=== PATIENT | male | born 1960 | race Caucasian/White ===

== ENCOUNTER 2016-11-28 16:25 | Emergency (ER) | payer SELFPAY ==
[~2016-11-28 16:25] MED LIST: PROAIR HFA8.5 GM INH; TRAM-29 PO; VALA10005 PO
[2016-11-28 16:35] VITALS: BP 98/63
--- NOTE | 2016-11-28 17:06 | PHYS DOC ---
Past Medical History Past Medical History: Asthma, COPD Past Surgical History: Other Additional Past Surgical Histo: hernia abd Alcohol Use: Heavy Drug Use: None Adult General Chief Complaint Chief Complaint: Congestion HPI HPI Patient is a 56 year old male with history of COPD, asthma, smoking, who presents today with cough and congestion for the last 2 days. Patient states he has no PCP and has no inhaler. Patient denies any fever. Review of Systems Review of Systems Constitutional: See history of present illness Eyes: Denies change in visual acuity, redness, or eye pain [] HENT: nasal congestion Respiratory: cough Cardiovascular: No additional information not addressed in HPI [] GI: Denies abdominal pain, nausea, vomiting, bloody stools or diarrhea [] : Denies dysuria or hematuria [] Musculoskeletal: Denies back pain or joint pain [] Integument: Denies rash or skin lesions [] Neurologic: Denies headache, focal weakness or sensory changes [] Endocrine: Denies polyuria or polydipsia [] Allergies Allergies Allergies Coded Allergies Type Severity Reaction Last Updated Verified No Known Drug Allergies 05/13/16 No Physical Exam Physical Exam Constitutional: Well developed, well nourished, no acute distress, non-toxic appearance. [] HENT: Normocephalic, atraumatic, bilateral external ears normal, oropharynx moist, no oral exudates, patient sounds congested nasally Eyes: PERRLA, EOMI, conjunctiva normal, no discharge. [] Neck: Normal range of motion, no tenderness, supple, no stridor. [] Cardiovascular:Heart rate regular rhythm, no murmur [] Lungs & Thorax: Bilateral breath sounds clear to auscultation [] Abdomen: Bowel sounds normal, soft, no tenderness, no masses, no pulsatile masses. [] Skin: Warm, dry, no erythema, no rash. [] Back: No tenderness, no CVA tenderness. [] Extremities: No tenderness, no cyanosis, no clubbing, ROM intact, no edema. [] Neurologic: Alert and oriented X 3, normal motor function, normal sensory function, no focal deficits noted. [] Psychologic: Affect normal, judgement normal, mood normal. [] Current Patient Data Vital Signs Vital Signs Date Time Temp Pulse Resp B/P Pulse Ox O2 Delivery O2 Flow Rate FiO2 11/28/16 16:35 98.7 88 18 100 Room Air 98.7 EKG EKG [] Radiology/Procedures Radiology/Procedures [] Course & Med Decision Making Course & Med Decision Making Pertinent Labs and Imaging studies reviewed. (See chart for details) Patient is in the ED with cough and congestion for 2 days. He has history of asthma and COPD and has no PCP or inhalers. His lungs are clear in the ED. He sounded congested nasally. He is a smoker he was advised to consider smoking cessation. Chest x-ray interpreted by Dr. Kennedy is negative for any acute findings. Patient has no follow-up. He has acute bronchitis, upper respiratory infection, with no follow-up i went ahead and wrote him a prescription for Z-Gerry, albuterol inhaler, Tessalon Perles, prednisone for 5 days. Provided him a clinic list for follow-up. Instructed to come back to the ED if symptoms worsen. Dragon Disclaimer Dragon Disclaimer This electronic medical record was generated, in whole or in part, using a voice recognition dictation system. Departure Departure Impression: Primary Impression: Upper respiratory infection Additional Impressions: Bronchitis, acute Smoking addiction Disposition: HOME, SELF-CARE Condition: STABLE Referrals: NO PCP (PCP) Follow-up with a doctor from the list provided Patient Instructions: Acute Bronchitis, Smoking Cessation, Upper Respiratory Infection, Adult Additional Instructions: You were for bronchitis, upper respiratory infection. Consider smoking cessation. Use the prescribed medicines as ordered. Follow-up with a doctor from the list provided in one week. Scripts Albuterol Sulfate (Proair Respiclick)90 Mcg Aer.pow.ba1 Puff IH PRN Q6HRS PRN SHORTNESS OF BREATH #1 INHALER Prov:KIRK SNYDER DISTRIBUTION COLLECTION OPERATOR 11/28/16 Azithromycin (Azithromycin Tablet)250 Mg Tablet1 Pkg PO UD #6 TAB Prov:KIRK SNYDER DISTRIBUTION COLLECTION OPERATOR 11/28/16 Benzonatate (Tessalon Perle)100 Mg Capsule1 Cap PO TID #30 CAP Prov:KIRK SNYDER DISTRIBUTION COLLECTION OPERATOR 11/28/16 Prednisone 50 Mg Tablet1 Tab PO DAILY #5 TAB Prov:KIRK SNYDER DISTRIBUTION COLLECTION OPERATOR 11/28/16 Problem Qualifiers Primary Impression: Upper respiratory infection URI type: unspecified viral URI Qualified Code: J06.9 - Acute upper respiratory infection, unspecified Additional Impressions: Bronchitis, acute Bronchitis organism: unspecified organism Qualified Code: J20.9 - Acute bronchitis, unspecified KIRK SNYDER DISTRIBUTION COLLECTION OPERATOR Nov 28, 2016 17:06
[2016-11-28] MEDS ORDERED: BENZ100C PO (17:43)
[2016-11-28] MEDS ORDERED: PRED50TA PO (17:43)
[2016-11-28] MEDS ORDERED: PROAIR RESPICL90 MCG IH (17:43)
[2016-11-28] MEDS ORDERED: AZIT250T6 PO (17:43)
--- NOTE | 2016-11-29 08:33 | RAD ---
Chest, 2 views, 11/28/2016: History: Cough and shortness of breath Comparison is made to a study from 05/13/2016. The heart size and pulmonary vascularity are normal. There is calcific plaquing of the thoracic aorta. There is minimal linear scarring or atelectasis in the lingular region. The right lung is clear. There is no evidence of pleural fluid. Mild spurring is present in the spine. IMPRESSION: Minimal linear scarring or atelectasis in the lingula.
== END 2016-11-28 17:50 | disposition home or self-care (01) ==
LOC: ER 16:25
DX: J06.9 Acute upper respiratory infection, unspecified (principal); J20.9 Acute bronchitis, unspecified; J44.9 Chronic obstructive pulmonary disease, unspecified; J45.909 Unspecified asthma, uncomplicated; F17.200 Nicotine dependence, unspecified, uncomplicated
CPT/HCPCS: 71020; 99284-25

== ENCOUNTER 2018-06-08 12:38 | Emergency (ER) | payer SELFPAY ==
[2018-06-08] MEDS: IPRATRPIUM/ALBUTEROL 0.5/2.5MG 3 ML NEBU. NEB (13:09)
[2018-06-08] MEDS: predniSONE 10 MG TABLET PO (14:06)
== END 2018-06-08 14:15 | disposition home or self-care (01) ==
LOC: ER 12:38
DX: R94.2 Abnormal results of pulmonary function studies (principal); J44.9 Chronic obstructive pulmonary disease, unspecified; Z59.0 Homelessness
CPT/HCPCS: 94640; 99283; J7512; J7620

== ENCOUNTER 2018-07-10 18:21 | Emergency (ER) | payer SELFPAY ==
[~2018-07-10] VITALS: Ht 180.3 cm; Wt 68.0 kg
[~2018-07-10 18:21] MED LIST changes: +ALBU8.5H8 IH; +AZIT250T6 PO; +BENZ100C PO; +PRED50TA PO; +PROAIR RESPICL90 MCG IH; -TRAM-29 PO; +TRAM-48 PO
[2018-07-10] MEDS ORDERED: MULTIVITAMIN I-VITE TABLET. PO ONE (18:45)
[2018-07-10] MEDS ORDERED: methylPREDNISolone SOD SUCC PF 125 MG/2 ML VIAL. IV ONE (18:45)
[2018-07-10] MEDS ORDERED: MAGNESIUM SULFATE 1GM 100 ML IV ONE (18:45)
[2018-07-10] MEDS ORDERED: THIAMINE 100 MG TABLET. PO ONE (18:45)
[2018-07-10] MEDS ORDERED: IPRATRPIUM/ALBUTEROL 0.5/2.5MG 3 ML NEBU. NEB ONE (18:45)
[2018-07-10 19:07] LABS: BASO # 0.1 x10^3/uL (0.0-0.2); BASO % 2 % (0-3); EOS # 0.2 x10^3/uL (0.0-0.7); EOS % 3 % (0-3); HEMATOCRIT 40.7 % (39.0-53.0); HEMOGLOBIN 13.8 g/dL (13.0-17.5); LYMPH # 1.9 x10^3/uL (1.0-4.8); LYMPH % 31 % (24-48); MEAN CORPUSCULAR HEMOGLOBIN 33 pg (25-35); MEAN CORPUSCULAR HGB CONC 34 g/dL (31-37); MEAN CORPUSCULAR VOLUME 98 fL (79-100); MONO # 0.8 x10^3/uL (0.0-1.1); MONO % 14 % (0-9); NEUT # 3.1 x10^3uL (1.8-7.7); NEUT % 50 % (31-73); PLATELET COUNT 257 x10^3/uL (140-400); RED BLOOD COUNT 4.14 x10^6/uL (4.30-5.70); RED CELL DISTRIBUTION WIDTH 13.5 % (11.5-14.5); WHITE BLOOD COUNT 6.2 x10^3/uL (4.0-11.0)
--- NOTE | 2018-07-10 19:12 | PHYS DOC ---
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 He states he is out of all his asthma medications. He states he has had a cough productive of scant amounts of white sputum. He denies any pain, including any chest pain. He has not had any fevers or chills. He smells of alcohol currently. He denies any recent injuries. There are no alleviating or exacerbating factors to his symptoms. Review of Systems Review of Systems Constitutional: Denies fever or chills [] Eyes: Denies change in visual acuity, redness, or eye pain [] HENT: Denies nasal congestion or sore throat [] Respiratory: Reports cough, shortness of breath, and wheezing[] Cardiovascular: The patient denies any chest pain, palpitations, or orthopnea [ ] GI: Denies abdominal pain, nausea, vomiting, bloody stools or diarrhea [] : Denies dysuria or hematuria [] Musculoskeletal: Denies back pain or joint pain [] Integument: Denies rash or skin lesions [] Neurologic: Denies headache, focal weakness or sensory changes [] Endocrine: Denies polyuria or polydipsia [] All other systems were reviewed and found to be within normal limits, except as documented in this note. Current Medications Current Medications Current Medications Medications (Trade) Dose Ordered Sig/Faiza Start Time Stop Time Status Last Admin Dose Admin Albuterol/ Ipratropium (Duoneb) 3 ml 1X ONCE 07/10/18 18:45 07/10/18 18:47 DC 07/10/18 19:21 3 ML Magnesium Sulfate/ Dextrose 100 ml @ 100 mls/hr 1X ONCE 07/10/18 18:45 07/10/18 19:44 DC 07/10/18 19:04 100 MLS/HR Methylprednisolone Sodium Succinate (SOLU-Medrol 125MG VIAL) 125 mg 1X ONCE 07/10/18 18:45 07/10/18 18:47 DC 07/10/18 19:03 125 MG Multivitamins/ Minerals (I-Anup) 1 tab ONCE ONCE 07/10/18 18:45 07/10/18 18:51 DC 07/10/18 19:03 1 TAB Thiamine Mononitrate (Vitamin B-1) 100 mg ONCE ONCE 07/10/18 18:45 07/10/18 18:51 DC 07/10/18 19:03 100 MG Allergies Allergies Allergies Coded Allergies Type Severity Reaction Last Updated Verified No Known Drug Allergies 05/13/16 No Physical Exam Physical Exam PHYSICAL EXAM: CONSTITUTIONAL: Well developed, well nourished, don't of alcohol is present on the patient's breath. The patient is disheveled. HEAD: normocephalic, atraumatic EENT: PERRL, EOMI. Conjunctivae are injected bilaterally, there is some lateral nystagmus on lateral gaze, sclerae non-icteric; moist mucous membranes. NECK: Supple, non-tender; no meningismus. LUNGS: There are mild scattered X3 wheezes in all lung [place] with mildly diminished air movement. Breathing is unlabored.. HEART: Regular rate and rhythm, no murmur CHEST: No deformity; non-tender ABDOMEN: The abdomen is soft, and non-tender, no masses or bruits. EXTREM: Normal ROM; no deformity, no calf tenderness. Normal pulses palpable in all extremities. There is no pedal edema. SKIN: No rash; no diaphoresis NEURO: Alert; normal speech and cognition; CN's grossly intact; strength grossly intact without focal deficit. BACK: No CVA TTP. Current Patient Data Vital Signs Vital Signs Date Time Temp Pulse Resp B/P (MAP) Pulse Ox O2 Delivery O2 Flow Rate FiO2 07/10/18 19:33 90 Room Air 07/10/18 18:30 97.9 91 24 124/84 (97) 97.9 Lab Values Laboratory Tests Test 07/10/18 18:55 White Blood Count 6.2 x10^3/uL (4.0-11.0) Red Blood Count 4.14 x10^6/uL (4.30-5.70) L Hemoglobin 13.8 g/dL (13.0-17.5) Hematocrit 40.7 % (39.0-53.0) Mean Corpuscular Volume 98 fL (79-100) Mean Corpuscular Hemoglobin 33 pg (25-35) Mean Corpuscular Hemoglobin Concent 34 g/dL (31-37) Red Cell Distribution Width 13.5 % (11.5-14.5) Platelet Count 257 x10^3/uL (140-400) Neutrophils (%) (Auto) 50 % (31-73) Lymphocytes (%) (Auto) 31 % (24-48) Monocytes (%) (Auto) 14 % (0-9) H Eosinophils (%) (Auto) 3 % (0-3) Basophils (%) (Auto) 2 % (0-3) Neutrophils # (Auto) 3.1 x10^3uL (1.8-7.7) Lymphocytes # (Auto) 1.9 x10^3/uL (1.0-4.8) Monocytes # (Auto) 0.8 x10^3/uL (0.0-1.1) Eosinophils # (Auto) 0.2 x10^3/uL (0.0-0.7) Basophils # (Auto) 0.1 x10^3/uL (0.0-0.2) Sodium Level 137 mmol/L (136-145) Potassium Level 4.1 mmol/L (3.5-5.1) Chloride Level 102 mmol/L (98-107) Carbon Dioxide Level 28 mmol/L (21-32) Anion Gap 7 (6-14) Blood Urea Nitrogen 18 mg/dL (8-26) Creatinine 1.0 mg/dL (0.7-1.3) Estimated GFR (Cockcroft-Gault) 77.6 BUN/Creatinine Ratio 18 (6-20) Glucose Level 93 mg/dL (70-99) Calcium Level 10.4 mg/dL (8.5-10.1) H Magnesium Level 2.2 mg/dL (1.8-2.4) Total Bilirubin 0.2 mg/dL (0.2-1.0) Aspartate Amino Transferase (AST) 24 U/L (15-37) Alanine Aminotransferase (ALT) 35 U/L (16-63) Alkaline Phosphatase 37 U/L (46-116) L Creatine Kinase 75 U/L (39-308) Creatine Kinase MB (Mass) 1.7 ng/mL (0.0-3.6) Creatine Kinase MB Relative Index 2.3 % (0-4) Troponin I Quantitative < 0.017 ng/mL (0.000-0.055) DX-Aph-G-Type Natriuretic Peptide 90 pg/mL (0-124) Total Protein 7.2 g/dL (6.4-8.2) Albumin 3.8 g/dL (3.4-5.0) Albumin/Globulin Ratio 1.1 (1.0-1.7) Ethyl Alcohol Level 225 mg/dL (0-10) H Laboratory Tests 07/10/18 18:55 Laboratory Tests 07/10/18 18:55 EKG EKG [Normal sinus rhythm at a rate of 85 beats for minute, normal axis, normal intervals, nonspecific ST/T changes without acute ischemic changes noted.] Radiology/Procedures Radiology/Procedures [ER physician preliminary chest x-ray interpretation: Chronic changes of COPD without acute infiltrate.] Course & Med Decision Making Course & Med Decision Making Pertinent Labs and Imaging studies reviewed. (See chart for details) [7:45 PM:Patient remains stable. I discussed test results, the need for close follow-up, and return precautions.] The patient has been given resources to facilitate outpatient follow-up. Dragon Disclaimer Dragon Disclaimer This electronic medical record was generated, in whole or in part, using a voice recognition dictation system. Departure Departure Impression: Primary Impression: COPD (chronic obstructive pulmonary disease) Additional Impression: Alcohol abuse Disposition: 01 HOME, SELF-CARE Condition: STABLE Referrals: NO PCP (PCP) Patient Instructions: Alcohol Intoxication, Alcohol Problems, Chronic Obstructive Pulmonary Disease, Chronic Obstructive Pulmonary Disease Exacerbation Scripts Albuterol Sulfate (PROAIR HFA INHALER) 8.5 Gm Hfa.aer.ad 1 PUFF INH PRN Q6HRS PRN for SHORTNESS OF BREATH, #1 INHALER 0 Refills Prov: JANETTE CALL MD 07/10/18 Prednisone (PREDNISONE) 20 Mg Tablet 40 MG PO DAILY for 5 Days, #10 TAB Prov: JANETTE CALL MD 07/10/18 Problem Qualifiers JANETTE CALL MD Jul 10, 2018 19:12
[2018-07-10 19:23] LABS: CALCIUM 10.4 mg/dL (8.5-10.1); GFR 77.6; POTASSIUM 4.1 mmol/L (3.5-5.1)
[2018-07-10 19:29] LABS: ALBUMIN 3.8 g/dL (3.4-5.0); ALBUMIN/GLOBULIN RATIO 1.1 (1.0-1.7); MAGNESIUM 2.2 mg/dL (1.8-2.4); TOTAL BILIRUBIN 0.2 mg/dL (0.2-1.0); TOTAL PROTEIN 7.2 g/dL (6.4-8.2)
[2018-07-10 19:45] VITALS: BP 119/76
[2018-07-10] MEDS ORDERED: PRED20TA PO (19:47)
[2018-07-10] MEDS ORDERED: PROAIR HFA8.5 GM INH (19:47)
--- NOTE | 2018-07-10 20:40 | EKG ---
[facility] [address] [place] [address] Test Date: 2018-07-10 Test Time: 19:02:55 Pat Name: CHALINO MAGALLANES Department: Room: Gender: M Customer Orders Clerk: : 1960 Requested By: JANETTE CALL Order Number: [id number] Reading MD: Pedrito Davies MD Measurements Intervals [place] Rate: 84 P: 63 NE: 150 QRS: 83 QRSD: 82 T: 73 QT: 348 QTc: 414 Interpretive Statements SINUS RHYTHM Electronically Signed On 07-14-2018 10:33:37 CDT by Pedrito Davies MD
--- NOTE | 2018-07-11 08:08 | RAD ---
EXAM: Portable AP view of the chest DATE: 07/10/2018 7:16 PM INDICATION: s/p cough, SOB, DUE TO ASTHMA TODAY COMPARISON: 05/10/2018, 04/28/2017 FINDINGS: The heart is not enlarged. Mediastinal and hilar contours are normal. Atherosclerotic calcifications of the aorta are noted. No focal parenchymal airspace opacity. Bilateral emphysematous changes are seen. No pleural effusion or pneumothorax. IMPRESSION: 1. No radiographic evidence for acute cardiopulmonary process. Electronically signed by: Mello Genao MD (07/11/2018 8:04 AM) [facility]
== END 2018-07-10 20:09 | disposition home or self-care (01) ==
LOC: ER 18:21
DX: J44.9 Chronic obstructive pulmonary disease, unspecified (principal); F10.20 Alcohol dependence, uncomplicated; Y90.7 Blood alcohol level of 200-239 mg/100 ml; Z87.891 Personal history of nicotine dependence; Z59.0 Homelessness
CPT/HCPCS: 36415; 71045; 80053; 82553; 83735; 83880; 84484; 85025; 93005; 94640; 96365; 96375; 99285; G0480; J2930; J3475; J7620

== ENCOUNTER 2018-07-12 07:57 | Inpatient (IN) | payer SELFPAY ==
[2018-07-12] VITALS (14 sets, daily range): BP systolic 82–177; BP diastolic 52–102
[~2018-07-12] VITALS: Ht 180.3 cm; Wt 65.3 kg
[~2018-07-12 07:57] MED LIST changes: +PRED20TA PO
--- NOTE | 2018-07-12 08:04 | EKG ---
[facility] [address] [place] [address] Test Date: 2018-07-12 Test Time: 08:00:08 Pat Name: CHALINO MAGALLANES Department: Room: Gender: Inside Sales Supervisor: : 1960 Requested By: SD ELIAS Order Number: [id number] Reading MD: Pedrito Davies MD Measurements Intervals [place] Rate: 117 P: 90 OR: 146 QRS: 83 QRSD: 92 T: 59 QT: 312 QTc: 439 Interpretive Statements SINUS TACHYCARDIA Electronically Signed On 07-14-2018 10:38:27 CDT by Pedrito Davies MD
--- NOTE | 2018-07-12 08:26 | RAD ---
Indication:SHORT OF AIR TECHNIQUE:Portable AP chest X-ray COMPARISON:07/10/2018 FINDINGS: Heart is normal in size. There is a faint 1 cm round opacity projecting over the right lower lung zone not seen on previous study. Otherwise, lungs are clear. No pneumothorax or effusion. Visualized bony thorax is within normal limits. IMPRESSION: 1. No acute pulmonary process. 2. Faint nodular opacity over the right lower lung zone not seen on previous study from 07/10/2018 likely nipple shadow. Repeat imaging with nipple marker is recommended. Electronically signed by: Anson Mosher DO (07/12/2018 8:22 AM) [facility]
[2018-07-12] MEDS ORDERED: IPRATRPIUM/ALBUTEROL 0.5/2.5MG 3 ML NEBU. NEB ONE (08:30)
[2018-07-12] MEDS ORDERED: ALBUTEROL SULFATE 2.5 MG/3 ML NEBU. CONT NEB ONE (08:30)
[2018-07-12] MEDS ORDERED: methylPREDNISolone SOD SUCC PF 125 MG/2 ML VIAL. IV ONE (08:30)
[2018-07-12 08:37] LABS: BASO % 0 % (0-3); EOS % 0 % (0-3); HEMATOCRIT 43.6 % (39.0-53.0); HEMOGLOBIN 14.6 g/dL (13.0-17.5); LYMPH # 0.6 x10^3/uL (1.0-4.8); LYMPH % 6 % (24-48); MEAN CORPUSCULAR HEMOGLOBIN 34 pg (25-35); MEAN CORPUSCULAR HGB CONC 34 g/dL (31-37); MEAN CORPUSCULAR VOLUME 100 fL (79-100); MONO # 0.8 x10^3/uL (0.0-1.1); MONO % 8 % (0-9); NEUT # 8.8 x10^3uL (1.8-7.7); NEUT % 87 % (31-73); PLATELET COUNT 277 x10^3/uL (140-400); RED BLOOD COUNT 4.37 x10^6/uL (4.30-5.70); WHITE BLOOD COUNT 10.2 x10^3/uL (4.0-11.0)
[2018-07-12 08:38] LABS: CALCIUM 9.2 mg/dL (8.5-10.1); CREATININE 0.8 mg/dL (0.7-1.3); GFR 100.4
[2018-07-12] MEDS ORDERED: fentaNYL PF VIAL 100 MCG/2 ML VIAL IV PRN (09:30)
--- NOTE | 2018-07-12 09:38 | RAD ---
Indication:S/P ET TUBE PLACEMENT TECHNIQUE:Portable AP chest X-ray COMPARISON:Study from the same day earlier FINDINGS: ET tube is seen at appropriate position. Tip of the NG tube is seen in the body of the stomach. Heart is normal in size. Lungs are clear. No pneumothorax or pleural effusion. Visualized bony thorax is within normal limits. IMPRESSION: ET tube in appropriate position. Electronically signed by: Anson Mosher DO (07/12/2018 9:35 AM) [facility]
[2018-07-12] MEDS: PROPOFOL 100 ML IV PRN ×3 (09:39→17:06)
[2018-07-12] MEDS: IV NORMAL SALINE 1000ML BAG 1,000 ML IV SCH (09:50)
--- NOTE | 2018-07-12 09:53 | PHYS DOC ---
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 Patient is known to have COPD. He is also homeless and has no ability to obtain his medications due to lack of financial resources. He was in the emergency department earlier this week with COPD exacerbation. He was not able to fill prescriptions. He presents to the ER today with dyspnea and became more severe overnight and just prior to calling EMS this morning. He denies fever. He does have a cough and worsening shortness of breath. Patient had oxygen saturation in the 80s when EMS arrived. He was placed on nebulized treatments on route to the hospital. On arrival, he is in significant distress and had some gasping respirations. Initially, patient is placed on BiPAP with continuous albuterol and DuoNeb treatments. Review of Systems Review of Systems Constitutional: Denies fever or chills Eyes: Denies change in visual acuity HENT: Denies nasal congestion Respiratory: Denies cough or shortness of breath Cardiovascular: No additional information GI: Denies abdominal pain Musculoskeletal: Denies back pain Integument: Denies rash or skin lesions Neurologic: Denies headache All other systems were reviewed and found to be within normal limits, except as documented in this note. Current Medications Current Medications Current Medications Medications (Trade) Dose Ordered Sig/Faiza Start Time Stop Time Status Last Admin Dose Admin Albuterol Sulfate (Ventolin Neb Soln) 10 mg 1X ONCE 07/12/18 08:30 07/12/18 08:31 DC 07/12/18 08:21 10 MG Albuterol/ Ipratropium (Duoneb) 3 ml 1X ONCE 07/12/18 08:30 07/12/18 08:31 DC 07/12/18 08:21 3 ML Chlorhexidine Gluconate (Peridex) 15 ml BID 07/12/18 21:00 Fentanyl Citrate (Fentanyl 2ml Vial) 50 mcg PRN Q1HR PRN 07/12/18 09:30 Levofloxacin/ Dextrose 100 ml @ 100 mls/hr Q24H 07/12/18 11:00 Lorazepam (Ativan) 0.5 mg 1X ONCE 07/12/18 08:30 07/12/18 08:31 DC 07/12/18 08:20 0.5 MG Methylprednisolone Sodium Succinate (SOLU-Medrol 125MG VIAL) 125 mg Q6HRS 07/12/18 12:00 Propofol 100 ml @ 0 mls/hr CONT PRN 07/12/18 09:30 07/12/18 09:39 0 MLS/HR Sodium Chloride 1,000 ml @ 75 mls/hr [id number] 07/12/18 10:00 07/13/18 09:59 07/12/18 09:50 75 MLS/HR Allergies Allergies Allergies Coded Allergies Type Severity Reaction Last Updated Verified No Known Drug Allergies 05/13/16 No Physical Exam Physical Exam Constitutional: Disheveled male in acute respiratory distress HENT: Normocephalic, atraumatic, bilateral external ears normal Eyes: PERRLA, EOMI, conjunctiva normal Neck: Normal range of motion, no tenderness, supple Cardiovascular: tachycardic HR Lungs & Thorax: acute resp distress. severely prolonged exp phase and diminished air flow Abdomen: Bowel sounds normal, soft Skin: Warm, diaphoretic Back: Normal ROM Extremities: No edema Neurologic: Alert and oriented X 3 Psychologic: Affect normal Current Patient Data Vital Signs Vital Signs Date Time Temp Pulse Resp B/P (MAP) Pulse Ox O2 Delivery O2 Flow Rate FiO2 07/12/18 09:20 95 Ventilator 07/12/18 08:26 5.0 07/12/18 07:57 110 30 217/106 (143) Lab Values Laboratory Tests Test 07/12/18 08:00 White Blood Count 10.2 x10^3/uL (4.0-11.0) Red Blood Count 4.37 x10^6/uL (4.30-5.70) Hemoglobin 14.6 g/dL (13.0-17.5) Hematocrit 43.6 % (39.0-53.0) Mean Corpuscular Volume 100 fL (79-100) Mean Corpuscular Hemoglobin 34 pg (25-35) Mean Corpuscular Hemoglobin Concent 34 g/dL (31-37) Red Cell Distribution Width 14.0 % (11.5-14.5) Platelet Count 277 x10^3/uL (140-400) Neutrophils (%) (Auto) 87 % (31-73) H Lymphocytes (%) (Auto) 6 % (24-48) L Monocytes (%) (Auto) 8 % (0-9) Eosinophils (%) (Auto) 0 % (0-3) Basophils (%) (Auto) 0 % (0-3) Neutrophils # (Auto) 8.8 x10^3uL (1.8-7.7) H Lymphocytes # (Auto) 0.6 x10^3/uL (1.0-4.8) L Monocytes # (Auto) 0.8 x10^3/uL (0.0-1.1) Eosinophils # (Auto) 0.0 x10^3/uL (0.0-0.7) Basophils # (Auto) 0.0 x10^3/uL (0.0-0.2) Platelet Estimate Pending Sodium Level 139 mmol/L (136-145) Potassium Level 4.0 mmol/L (3.5-5.1) Chloride Level 103 mmol/L (98-107) Carbon Dioxide Level 25 mmol/L (21-32) Anion Gap 11 (6-14) Blood Urea Nitrogen 15 mg/dL (8-26) Creatinine 0.8 mg/dL (0.7-1.3) Estimated GFR (Cockcroft-Gault) 100.4 Glucose Level 150 mg/dL (70-99) H Calcium Level 9.2 mg/dL (8.5-10.1) Troponin I Quantitative < 0.017 ng/mL (0.000-0.055) Laboratory Tests 07/12/18 08:00 Laboratory Tests 07/12/18 08:00 EKG EKG No STEMI Interpretation Time: 08:05 Radiology/Procedures Radiology/Procedures No acute findings on CXR Course & Med Decision Making Course & Med Decision Making Pertinent Labs and Imaging studies reviewed. (See chart for details) Lanny was evaluated in the emergency department. He was seen immediately on arrival. Patient had severe respiratory distress and air hunger. He was given a trial of BiPAP which he could not tolerate. Following that he was placed on albuterol via mask and also nebulized device but the patient also cannot tolerate these. After one hour in the ER with no improvement, I discussed the option of intubation with the patient. He was unable to tolerate the treatments. He was also becoming fatigued. Patient was agreeable to endotracheal intubation. Appropriate staff were notified. Suction was available. Ventilator at the bedside. Patient was sedated with 20 mg of etomidate followed by rocuronium and fentanyl. A 7.5 ET tube was placed without difficulty. Tube placement was verified with color change, bilateral chest rise and fall, x-ray, and fog in the tube. The patient had an oxygen saturation greater than 95% throughout the procedure. Following intubation, decision is made to admit the patient to the intensive care unit. I discussed this patient with Dr. Evans who will admit. Levaquin is ordered to be given daily. Slight Medrol every 6 hours. The patient had no additional acute events during the ED course. Multiple additional albuterol nebulized treatments were ran in-line in his respiratory circuit. Dragon Disclaimer Dragon Disclaimer This electronic medical record was generated, in whole or in part, using a voice recognition dictation system. Departure Departure Referrals: NO PCP (PCP) SD ELIAS DO Jul 12, 2018 09:53
[2018-07-12] MEDS ORDERED: fentaNYL PF VIAL 100 MCG/2 ML VIAL ONE (10:17)
[2018-07-12] MEDS ORDERED: ETOMIDATE 20 MG/10 ML VIAL. IV ONE (10:18)
[2018-07-12] MEDS ORDERED: ROCURONIUM 50 MG/5 ML VIAL. ONE (10:18)
[2018-07-12 10:28] LABS: BASE EXCESS ABG -6 mmol/L (-3-3); HCO3 ABG 25 mmol/L (21-28); PO2 ABG 114 mmHg (75-108); SAT O2 ABG 96 % (92-99)
[2018-07-12 10:30] LABS: PCO2 ABG 79 mmHg (35-46)
--- NOTE | 2018-07-12 10:48 | PDOC ---
Provider Note Provider Note [id number] acute resp fail ae of copd acute bronchitis steroid, abx, see orders STUART ALMAZAN MD Jul 12, 2018 10:48
[2018-07-12 11:05] LABS: % BANDS 7 % (0-9); % BASOS 1 % (0-3); % LYMPHS 3 % (24-48); % METAS 2 % (0-0); % MONOS 2 % (0-10); % SEGS 85 % (35-66); PLT ESTIMATE ADEQUATE (ADEQUATE)
[2018-07-12] MEDS ORDERED: MIDAZOLAM 100mg/100ml NS BAG 100 ML IV PRN ×2 (11:45→22:00)
--- NOTE | 2018-07-12 11:49 | CONS ---
DATE OF CONSULTATION: 07/12/2018 REASON FOR CONSULTATION: I was asked to see this 57-year-old gentleman for acute respiratory failure. HISTORY OF PRESENT ILLNESS: The patient is currently on the ventilator and is sedated. All of the information was obtained from chart and nursing staff. He has COPD. He was in the Emergency Room a few days ago, but was not able to fill his prescription. He called 911 and was brought to the Emergency Room. He was in respiratory distress. He was not able to tolerate BiPAP. Subsequently, he was intubated. He is currently on the ventilator and is sedated. PAST MEDICAL HISTORY: COPD. CURRENT MEDICATIONS: He is on Solu-Medrol, Levaquin. Propofol. SOCIAL HISTORY: Positive for smoking, details are not known. FAMILY HISTORY: Unknown. The patient is currently on the ventilator and is sedated. REVIEW OF SYSTEMS: As mentioned as above, discussed the patient with RN. Other systems otherwise negative. PHYSICAL EXAMINATION: GENERAL: This is a well-developed gentleman, on the ventilator. VITAL SIGNS: His O2 saturation on 35% FiO2 is 96%, respiratory rate 22, heart rate 120. Blood pressure 160/90, temperature 98. HEENT: Normocephalic, atraumatic. Pupils equal, round, reactive to light. Nose is clear. He is orally intubated. NECK: There is no JVD, lymphadenopathy or thyromegaly. CARDIOVASCULAR: Tachycardic. CHEST: Inspection is normal. LUNGS: There is bilateral end expiratory wheezing. Percussion is within normal limit. ABDOMEN: Soft. Bowel sounds are good. There is no mass. EXTREMITIES: There is no edema. LYMPHATICS: There is no lymphadenopathy. NEUROLOGIC: He is sedated on the ventilator. SKIN: Chronic changes. LABORATORY DATA: I reviewed the following lab data: Chest x-ray shows ET tube is in good position. There are COPD changes, no infiltrate. WBC 10.2, hemoglobin 14.6, platelets 277. Sodium 139, potassium 4, chloride 103, CO2 of 25, glucose 150. Troponin less than 0.17. ABG: PH 7.12, pCO2 of 79, pO2 of 114 at 9:00 this morning on FiO2 of 50%. IMPRESSION: 1. Acute hypoxemic respiratory failure secondary to acute exacerbation of chronic obstructive pulmonary disease and acute bronchitis versus others. 2. Acute exacerbation of chronic obstructive pulmonary disease. 3. Acute bronchitis. 4. Tobacco habituation. PLAN AND RECOMMENDATIONS: 1. Titrate FiO2 to keep O2 saturation 94%. 2. Continue ventilator support until he is more stable. Ventilator setting was reviewed. We will repeat ABG. Change vent setting per ABG. 3. I agree with Solu-Medrol. 4. I agree with Levaquin. 5. Lovenox for DVT prophylaxis. 6. Pepcid for stress ulcer prophylaxis. 7. Elevate head of bed. 8. Sedate with fentanyl. If that is not enough continue propofol. 9. The findings and recommendations were discussed with RN and RT. Thank you very much for allowing me to participate in care of this very nice gentleman. STUART ALMAZAN M.D. : JASWINDER/fox JOB#: [id number] / [id number]
[2018-07-12] MEDS: PANTOPRAZOLE IV PUSH 40 MG VIAL. IVP SCH (12:11)
[2018-07-12] MEDS: methylPREDNISolone SOD SUCC PF 125 MG/2 ML VIAL. IV SCH ×2 (12:13→16:54)
[2018-07-12 12:53] LABS: BASE EXCESS ABG -5 mmol/L (-3-3); HCO3 ABG 23 mmol/L (21-28); PCO2 ABG 54 mmHg (35-46); PO2 ABG 77 mmHg (75-108); SAT O2 ABG 93 % (92-99)
[2018-07-12 13:12] LABS: FIO2 ABG 35
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
[2018-07-12 16:27] LABS: BASE EXCESS ABG 0 mmol/L (-3-3); HCO3 ABG 25 mmol/L (21-28); PCO2 ABG 41 mmHg (35-46); PO2 ABG 76 mmHg (75-108); SAT O2 ABG 95 % (92-99)
[2018-07-12 16:32] LABS: FIO2 ABG 35
[2018-07-12] MEDS: ENOXAPARIN 40 MG/0.4 ML SYRINGE. SQ SCH (16:53)
[2018-07-12] MEDS: IPRATRPIUM/ALBUTEROL 0.5/2.5MG 3 ML NEBU. NEB SCH (23:50)
[2018-07-13] VITALS (24 sets, daily range): BP systolic 89–165; BP diastolic 53–95
[2018-07-13] MEDS: CHLORHEXIDINE 0.12% 15 ML MOUTHWASH. MM SCH ×2 (00:07→07:49)
[2018-07-13] MEDS: IV NORMAL SALINE 1000ML BAG 1,000 ML IV SCH (00:07)
[2018-07-13] MEDS: methylPREDNISolone SOD SUCC PF 125 MG/2 ML VIAL. IV SCH ×4 (00:12→17:20)
[2018-07-13] MEDS: IPRATRPIUM/ALBUTEROL 0.5/2.5MG 3 ML NEBU. NEB SCH ×5 (03:09→20:00)
[2018-07-13 04:00] LABS: BASO % 0 % (0-3); EOS % 0 % (0-3); HEMATOCRIT 33.1 % (39.0-53.0); HEMOGLOBIN 11.4 g/dL (13.0-17.5); LYMPH # 0.3 x10^3/uL (1.0-4.8); LYMPH % 5 % (24-48); MEAN CORPUSCULAR HEMOGLOBIN 34 pg (25-35); MEAN CORPUSCULAR HGB CONC 34 g/dL (31-37); MEAN CORPUSCULAR VOLUME 99 fL (79-100); MONO # 0.3 x10^3/uL (0.0-1.1); MONO % 5 % (0-9); NEUT # 5.2 x10^3uL (1.8-7.7); NEUT % 91 % (31-73); PLATELET COUNT 214 x10^3/uL (140-400); RED BLOOD COUNT 3.33 x10^6/uL (4.30-5.70); WHITE BLOOD COUNT 5.8 x10^3/uL (4.0-11.0)
[2018-07-13 04:16] LABS: CALCIUM 8.1 mg/dL (8.5-10.1); GFR 77.6; POTASSIUM 4.6 mmol/L (3.5-5.1)
--- NOTE | 2018-07-13 06:44 | PDOC ---
PULMONARY PROGRESS NOTES Subjective on vent, sedated on versed and fentanyl, small ett secretion Vitals Vital Signs Date Time Temp Pulse Resp B/P (MAP) Pulse Ox O2 Delivery O2 Flow Rate FiO2 07/13/18 06:00 72 24 94/59 (71) 99 Ventilator 07/13/18 04:00 99.1 99.1 07/13/18 00:45 5.0 Comments ros as mentioned as above, discussed w rn, other sys otherwise neg sedated on vent HEENT: Other (nc at perrl nose clear, orally intubated... neck no lad, thyromegaly) Lungs: Crackles Cardiovascular: S1, S2 Abdomen: Soft, Non-tender, Other (no mass) Extremities: No Edema Skin: Warm Labs Laboratory Tests Test 07/12/18 08:00 07/12/18 09:18 07/12/18 10:20 07/12/18 12:45 White Blood Count 10.2 x10^3/uL (4.0-11.0) Red Blood Count 4.37 x10^6/uL (4.30-5.70) Hemoglobin 14.6 g/dL (13.0-17.5) Hematocrit 43.6 % (39.0-53.0) Mean Corpuscular Volume 100 fL (79-100) Mean Corpuscular Hemoglobin 34 pg (25-35) Mean Corpuscular Hemoglobin Concent 34 g/dL (31-37) Red Cell Distribution Width 14.0 % (11.5-14.5) Platelet Count 277 x10^3/uL (140-400) Neutrophils (%) (Auto) 87 % (31-73) Lymphocytes (%) (Auto) 6 % (24-48) Monocytes (%) (Auto) 8 % (0-9) Eosinophils (%) (Auto) 0 % (0-3) Basophils (%) (Auto) 0 % (0-3) Neutrophils # (Auto) 8.8 x10^3uL (1.8-7.7) Lymphocytes # (Auto) 0.6 x10^3/uL (1.0-4.8) Monocytes # (Auto) 0.8 x10^3/uL (0.0-1.1) Eosinophils # (Auto) 0.0 x10^3/uL (0.0-0.7) Basophils # (Auto) 0.0 x10^3/uL (0.0-0.2) Segmented Neutrophils % 85 % (35-66) Band Neutrophils % 7 % (0-9) Lymphocytes % 3 % (24-48) Monocytes % 2 % (0-10) Basophils % 1 % (0-3) Metamyelocytes % 2 % (0-0) Platelet Estimate Adequate (ADEQUATE) Sodium Level 139 mmol/L (136-145) Potassium Level 4.0 mmol/L (3.5-5.1) Chloride Level 103 mmol/L (98-107) Carbon Dioxide Level 25 mmol/L (21-32) Anion Gap 11 (6-14) Blood Urea Nitrogen 15 mg/dL (8-26) Creatinine 0.8 mg/dL (0.7-1.3) Estimated GFR (Cockcroft-Gault) 100.4 Glucose Level 150 mg/dL (70-99) Calcium Level 9.2 mg/dL (8.5-10.1) Troponin I Quantitative < 0.017 ng/mL (0.000-0.055) O2 Saturation 96 % (92-99) 93 % (92-99) Arterial Blood pH 7.12 (7.35-7.45) 7.25 (7.35-7.45) Arterial Blood pCO2 at Patient Temp 79 mmHg (35-46) 54 mmHg (35-46) Arterial Blood pO2 at Patient Temp 114 mmHg (75-108) 77 mmHg (75-108) Arterial Blood HCO3 25 mmol/L (21-28) 23 mmol/L (21-28) Arterial Blood Base Excess -6 mmol/L (-3-3) -5 mmol/L (-3-3) FiO2 50.0 35 Nasal Screen MRSA (PCR) Negative (Negative) Test 07/12/18 16:20 07/13/18 03:30 O2 Saturation 95 % (92-99) Arterial Blood pH 7.41 (7.35-7.45) Arterial Blood pCO2 at Patient Temp 41 mmHg (35-46) Arterial Blood pO2 at Patient Temp 76 mmHg (75-108) Arterial Blood HCO3 25 mmol/L (21-28) Arterial Blood Base Excess 0 mmol/L (-3-3) FiO2 35 White Blood Count 5.8 x10^3/uL (4.0-11.0) Red Blood Count 3.33 x10^6/uL (4.30-5.70) Hemoglobin 11.4 g/dL (13.0-17.5) Hematocrit 33.1 % (39.0-53.0) Mean Corpuscular Volume 99 fL (79-100) Mean Corpuscular Hemoglobin 34 pg (25-35) Mean Corpuscular Hemoglobin Concent 34 g/dL (31-37) Red Cell Distribution Width 14.0 % (11.5-14.5) Platelet Count 214 x10^3/uL (140-400) Neutrophils (%) (Auto) 91 % (31-73) Lymphocytes (%) (Auto) 5 % (24-48) Monocytes (%) (Auto) 5 % (0-9) Eosinophils (%) (Auto) 0 % (0-3) Basophils (%) (Auto) 0 % (0-3) Neutrophils # (Auto) 5.2 x10^3uL (1.8-7.7) Lymphocytes # (Auto) 0.3 x10^3/uL (1.0-4.8) Monocytes # (Auto) 0.3 x10^3/uL (0.0-1.1) Eosinophils # (Auto) 0.0 x10^3/uL (0.0-0.7) Basophils # (Auto) 0.0 x10^3/uL (0.0-0.2) Sodium Level 140 mmol/L (136-145) Potassium Level 4.6 mmol/L (3.5-5.1) Chloride Level 108 mmol/L (98-107) Carbon Dioxide Level 26 mmol/L (21-32) Anion Gap 6 (6-14) Blood Urea Nitrogen 19 mg/dL (8-26) Creatinine 1.0 mg/dL (0.7-1.3) Estimated GFR (Cockcroft-Gault) 77.6 Glucose Level 194 mg/dL (70-99) Calcium Level 8.1 mg/dL (8.5-10.1) Laboratory Tests Test 07/12/18 08:00 07/12/18 09:18 07/12/18 10:20 07/12/18 12:45 White Blood Count 10.2 x10^3/uL (4.0-11.0) Red Blood Count 4.37 x10^6/uL (4.30-5.70) Hemoglobin 14.6 g/dL (13.0-17.5) Hematocrit 43.6 % (39.0-53.0) Mean Corpuscular Volume 100 fL (79-100) Mean Corpuscular Hemoglobin 34 pg (25-35) Mean Corpuscular Hemoglobin Concent 34 g/dL (31-37) Red Cell Distribution Width 14.0 % (11.5-14.5) Platelet Count 277 x10^3/uL (140-400) Neutrophils (%) (Auto) 87 % (31-73) Lymphocytes (%) (Auto) 6 % (24-48) Monocytes (%) (Auto) 8 % (0-9) Eosinophils (%) (Auto) 0 % (0-3) Basophils (%) (Auto) 0 % (0-3) Neutrophils # (Auto) 8.8 x10^3uL (1.8-7.7) Lymphocytes # (Auto) 0.6 x10^3/uL (1.0-4.8) Monocytes # (Auto) 0.8 x10^3/uL (0.0-1.1) Eosinophils # (Auto) 0.0 x10^3/uL (0.0-0.7) Basophils # (Auto) 0.0 x10^3/uL (0.0-0.2) Segmented Neutrophils % 85 % (35-66) Band Neutrophils % 7 % (0-9) Lymphocytes % 3 % (24-48) Monocytes % 2 % (0-10) Basophils % 1 % (0-3) Metamyelocytes % 2 % (0-0) Platelet Estimate Adequate (ADEQUATE) Sodium Level 139 mmol/L (136-145) Potassium Level 4.0 mmol/L (3.5-5.1) Chloride Level 103 mmol/L (98-107) Carbon Dioxide Level 25 mmol/L (21-32) Anion Gap 11 (6-14) Blood Urea Nitrogen 15 mg/dL (8-26) Creatinine 0.8 mg/dL (0.7-1.3) Estimated GFR (Cockcroft-Gault) 100.4 Glucose Level 150 mg/dL (70-99) Calcium Level 9.2 mg/dL (8.5-10.1) Troponin I Quantitative < 0.017 ng/mL (0.000-0.055) O2 Saturation 96 % (92-99) 93 % (92-99) Arterial Blood pH 7.12 (7.35-7.45) 7.25 (7.35-7.45) Arterial Blood pCO2 at Patient Temp 79 mmHg (35-46) 54 mmHg (35-46) Arterial Blood pO2 at Patient Temp 114 mmHg (75-108) 77 mmHg (75-108) Arterial Blood HCO3 25 mmol/L (21-28) 23 mmol/L (21-28) Arterial Blood Base Excess -6 mmol/L (-3-3) -5 mmol/L (-3-3) FiO2 50.0 35 Nasal Screen MRSA (PCR) Negative (Negative) Test 07/12/18 16:20 07/13/18 03:30 O2 Saturation 95 % (92-99) Arterial Blood pH 7.41 (7.35-7.45) Arterial Blood pCO2 at Patient Temp 41 mmHg (35-46) Arterial Blood pO2 at Patient Temp 76 mmHg (75-108) Arterial Blood HCO3 25 mmol/L (21-28) Arterial Blood Base Excess 0 mmol/L (-3-3) FiO2 35 White Blood Count 5.8 x10^3/uL (4.0-11.0) Red Blood Count 3.33 x10^6/uL (4.30-5.70) Hemoglobin 11.4 g/dL (13.0-17.5) Hematocrit 33.1 % (39.0-53.0) Mean Corpuscular Volume 99 fL (79-100) Mean Corpuscular Hemoglobin 34 pg (25-35) Mean Corpuscular Hemoglobin Concent 34 g/dL (31-37) Red Cell Distribution Width 14.0 % (11.5-14.5) Platelet Count 214 x10^3/uL (140-400) Neutrophils (%) (Auto) 91 % (31-73) Lymphocytes (%) (Auto) 5 % (24-48) Monocytes (%) (Auto) 5 % (0-9) Eosinophils (%) (Auto) 0 % (0-3) Basophils (%) (Auto) 0 % (0-3) Neutrophils # (Auto) 5.2 x10^3uL (1.8-7.7) Lymphocytes # (Auto) 0.3 x10^3/uL (1.0-4.8) Monocytes # (Auto) 0.3 x10^3/uL (0.0-1.1) Eosinophils # (Auto) 0.0 x10^3/uL (0.0-0.7) Basophils # (Auto) 0.0 x10^3/uL (0.0-0.2) Sodium Level 140 mmol/L (136-145) Potassium Level 4.6 mmol/L (3.5-5.1) Chloride Level 108 mmol/L (98-107) Carbon Dioxide Level 26 mmol/L (21-32) Anion Gap 6 (6-14) Blood Urea Nitrogen 19 mg/dL (8-26) Creatinine 1.0 mg/dL (0.7-1.3) Estimated GFR (Cockcroft-Gault) 77.6 Glucose Level 194 mg/dL (70-99) Calcium Level 8.1 mg/dL (8.5-10.1) Medications Active Scripts Medications Dose Route/Sig Max Daily Dose Days Date Category Proair Hfa Inhaler (Albuterol Sulfate) 8.5 Gm Hfa.aer.ad 1 Puff INH PRN Q6HRS PRN 07/10/18 Rx Prednisone 20 Mg Tablet 40 Mg PO DAILY 5 07/10/18 Rx Proair Hfa (Albuterol Sulfate) 8.5 Gm Hfa.aer.ad 8.5 Gm IH Q4HRS PRN 5 06/08/18 Rx Prednisone 50 Mg Tablet 50 Mg PO DAILY 7 06/08/18 Rx Proair Hfa Inhaler (Albuterol Sulfate) 8.5 Gm Hfa.aer.ad 1 Puff INH PRN Q6HRS PRN 30 05/11/18 Rx Proair Respiclick (Albuterol Sulfate) 90 Mcg Aer.pow.ba 1 Puff IH PRN Q6HRS PRN 11/28/16 Rx Azithromycin Tablet (Azithromycin) 250 Mg Tablet 1 Pkg PO UD 11/28/16 Rx Tessalon Perle (Benzonatate) 100 Mg Capsule 1 Cap PO TID 11/28/16 Rx Prednisone 50 Mg Tablet 1 Tab PO DAILY 11/28/16 Rx Ultram (Tramadol Hcl) 50 Mg Tablet 50 Mg PO Q6H PRN 07/24/16 Rx Valtrex (Valacyclovir Hcl) 1,000 Mg Tablet 1 Tab PO TID 07/24/16 Rx Proair Hfa Inhaler (Albuterol Sulfate) 8.5 Gm Hfa.aer.ad 1 Puff INH PRN Q6HRS PRN 05/13/16 Reported Comments cxr reviewed, no infilt. ett ok Impression . IMPRESSION: 1. Acute hypoxemic respiratory failure secondary to acute exacerbation of chronic obstructive pulmonary disease and acute bronchitis versus others. 2. Acute exacerbation of chronic obstructive pulmonary disease. 3. Acute bronchitis. 4. Tobacco habituation. Plan . PLAN AND RECOMMENDATIONS: 1. Titrate FiO2 to keep O2 saturation 94%. 2. Continue ventilator support. Ventilator setting was reviewed. wean sedation, sbt when awake 3. cont Solu-Medrol. no dose change 4. cont Levaquin. 5. Lovenox for DVT prophylaxis. 6. Pepcid for stress ulcer prophylaxis. 7. Elevate head of bed. The findings and recommendations were discussed with RN and RT. STUART ALMAZAN MD Jul 13, 2018 06:44
[2018-07-13 07:00] LABS: BARBITURATES NEG (NEG); BENZODIAZEPINES POS (NEG); CANNABINOIDS NEG (NEG); COCAINE NEG (NEG); METHADONE NEG (NEG); OPIATES POS (NEG); PHENCYCLIDINE NEG (NEG)
[2018-07-13 07:02] LABS: AMPHETAMINE/METHAMPHETAMINE NEG (NEG)
[2018-07-13] MEDS: PANTOPRAZOLE IV PUSH 40 MG VIAL. IVP SCH (07:44)
--- NOTE | 2018-07-13 09:08 | RAD ---
Chest AP portable at 0855: Reason for examination: Respiratory failure. Comparison is made to previous study dated 07/12/2018. Endotracheal tube and NG tube remain in place. The heart size is normal. Mediastinum is unremarkable. Lung [place]ol[place] are clear. No acute bony abnormalities are seen. Impression: No acute cardiopulmonary disease. Electronically signed by: Radha Higuera MD (07/13/2018 9:04 AM) [facility]
[2018-07-13 09:19] LABS: BASE EXCESS ABG -1 mmol/L (-3-3); HCO3 ABG 23 mmol/L (21-28); PCO2 ABG 34 mmHg (35-46); PO2 ABG 74 mmHg (75-108); SAT O2 ABG 95 % (92-99)
[2018-07-13 09:22] LABS: FIO2 ABG 35
[2018-07-13 12:04] LABS: BASE EXCESS ABG 0 mmol/L (-3-3); HCO3 ABG 26 mmol/L (21-28); PCO2 ABG 49 mmHg (35-46); PO2 ABG 83 mmHg (75-108); SAT O2 ABG 95 % (92-99)
[2018-07-13 12:05] LABS: FIO2 ABG 35
--- NOTE | 2018-07-13 14:15 | PDOC ---
PROGRESS NOTES Chief Complaint Chief Complaint Acute respiratory failure HTN Bronchitis, COPD Gastritis History of Present Illness History of Present Illness Pt seen and examined in ICU Pt was awake and responsive Vent settings: Spontaneous/10cm H2O pressure support/35%FiO2 Vitals Vitals Vital Signs Date Time Temp Pulse Resp B/P (MAP) Pulse Ox O2 Delivery O2 Flow Rate FiO2 07/13/18 13:11 98 Ventilator 07/13/18 13:00 55 12 142/77 (98) 07/13/18 12:00 98.1 98.1 07/13/18 00:45 5.0 Physical Exam General: Alert, Cooperative Heart: Regular rate, Normal S1 Lungs: Crackles Abdomen: Normal bowel sounds, Soft Extremities: No clubbing, No cyanosis Skin: No rashes, No breakdown Labs LABS Laboratory Tests Test 07/12/18 16:20 07/13/18 03:30 07/13/18 06:30 07/13/18 09:15 O2 Saturation 95 % (92-99) 95 % (92-99) Arterial Blood pH 7.41 (7.35-7.45) 7.45 (7.35-7.45) Arterial Blood pCO2 at Patient Temp 41 mmHg (35-46) 34 mmHg (35-46) Arterial Blood pO2 at Patient Temp 76 mmHg (75-108) 74 mmHg (75-108) Arterial Blood HCO3 25 mmol/L (21-28) 23 mmol/L (21-28) Arterial Blood Base Excess 0 mmol/L (-3-3) -1 mmol/L (-3-3) FiO2 35 35 White Blood Count 5.8 x10^3/uL (4.0-11.0) Red Blood Count 3.33 x10^6/uL (4.30-5.70) Hemoglobin 11.4 g/dL (13.0-17.5) Hematocrit 33.1 % (39.0-53.0) Mean Corpuscular Volume 99 fL (79-100) Mean Corpuscular Hemoglobin 34 pg (25-35) Mean Corpuscular Hemoglobin Concent 34 g/dL (31-37) Red Cell Distribution Width 14.0 % (11.5-14.5) Platelet Count 214 x10^3/uL (140-400) Neutrophils (%) (Auto) 91 % (31-73) Lymphocytes (%) (Auto) 5 % (24-48) Monocytes (%) (Auto) 5 % (0-9) Eosinophils (%) (Auto) 0 % (0-3) Basophils (%) (Auto) 0 % (0-3) Neutrophils # (Auto) 5.2 x10^3uL (1.8-7.7) Lymphocytes # (Auto) 0.3 x10^3/uL (1.0-4.8) Monocytes # (Auto) 0.3 x10^3/uL (0.0-1.1) Eosinophils # (Auto) 0.0 x10^3/uL (0.0-0.7) Basophils # (Auto) 0.0 x10^3/uL (0.0-0.2) Sodium Level 140 mmol/L (136-145) Potassium Level 4.6 mmol/L (3.5-5.1) Chloride Level 108 mmol/L (98-107) Carbon Dioxide Level 26 mmol/L (21-32) Anion Gap 6 (6-14) Blood Urea Nitrogen 19 mg/dL (8-26) Creatinine 1.0 mg/dL (0.7-1.3) Estimated GFR (Cockcroft-Gault) 77.6 Glucose Level 194 mg/dL (70-99) Calcium Level 8.1 mg/dL (8.5-10.1) Urine Opiates Screen Pos (NEG) Urine Methadone Screen Neg (NEG) Urine Barbiturates Neg (NEG) Urine Phencyclidine Screen Neg (NEG) Urine Amphetamine/Methamphetamine Neg (NEG) Urine Benzodiazepines Screen Pos (NEG) Urine Cocaine Screen Neg (NEG) Urine Cannabinoids Screen Neg (NEG) Urine Ethyl Alcohol Neg (NEG) Test 07/13/18 11:50 O2 Saturation 95 % (92-99) Arterial Blood pH 7.34 (7.35-7.45) Arterial Blood pCO2 at Patient Temp 49 mmHg (35-46) Arterial Blood pO2 at Patient Temp 83 mmHg (75-108) Arterial Blood HCO3 26 mmol/L (21-28) Arterial Blood Base Excess 0 mmol/L (-3-3) FiO2 35 Review of Systems Review of Systems Denies weakness Improved SOB Assessment and Plan Assessmemt and Plan Acute respiratory failure HTN Bronchitis, COPD Gastritis Plan: ICU monitoring Abx- Levoquin DVT prophylaxis IVF Cont to wean [place] time 32 minutes Comment Review of Relevant I have reviewed the following items bárbara (where applicable) has been applied. Labs Laboratory Tests Test 07/12/18 08:00 07/12/18 09:18 07/12/18 10:20 07/12/18 12:45 White Blood Count 10.2 x10^3/uL (4.0-11.0) Red Blood Count 4.37 x10^6/uL (4.30-5.70) Hemoglobin 14.6 g/dL (13.0-17.5) Hematocrit 43.6 % (39.0-53.0) Mean Corpuscular Volume 100 fL (79-100) Mean Corpuscular Hemoglobin 34 pg (25-35) Mean Corpuscular Hemoglobin Concent 34 g/dL (31-37) Red Cell Distribution Width 14.0 % (11.5-14.5) Platelet Count 277 x10^3/uL (140-400) Neutrophils (%) (Auto) 87 % (31-73) Lymphocytes (%) (Auto) 6 % (24-48) Monocytes (%) (Auto) 8 % (0-9) Eosinophils (%) (Auto) 0 % (0-3) Basophils (%) (Auto) 0 % (0-3) Neutrophils # (Auto) 8.8 x10^3uL (1.8-7.7) Lymphocytes # (Auto) 0.6 x10^3/uL (1.0-4.8) Monocytes # (Auto) 0.8 x10^3/uL (0.0-1.1) Eosinophils # (Auto) 0.0 x10^3/uL (0.0-0.7) Basophils # (Auto) 0.0 x10^3/uL (0.0-0.2) Segmented Neutrophils % 85 % (35-66) Band Neutrophils % 7 % (0-9) Lymphocytes % 3 % (24-48) Monocytes % 2 % (0-10) Basophils % 1 % (0-3) Metamyelocytes % 2 % (0-0) Platelet Estimate Adequate (ADEQUATE) Sodium Level 139 mmol/L (136-145) Potassium Level 4.0 mmol/L (3.5-5.1) Chloride Level 103 mmol/L (98-107) Carbon Dioxide Level 25 mmol/L (21-32) Anion Gap 11 (6-14) Blood Urea Nitrogen 15 mg/dL (8-26) Creatinine 0.8 mg/dL (0.7-1.3) Estimated GFR (Cockcroft-Gault) 100.4 Glucose Level 150 mg/dL (70-99) Calcium Level 9.2 mg/dL (8.5-10.1) Troponin I Quantitative < 0.017 ng/mL (0.000-0.055) O2 Saturation 96 % (92-99) 93 % (92-99) Arterial Blood pH 7.12 (7.35-7.45) 7.25 (7.35-7.45) Arterial Blood pCO2 at Patient Temp 79 mmHg (35-46) 54 mmHg (35-46) Arterial Blood pO2 at Patient Temp 114 mmHg (75-108) 77 mmHg (75-108) Arterial Blood HCO3 25 mmol/L (21-28) 23 mmol/L (21-28) Arterial Blood Base Excess -6 mmol/L (-3-3) -5 mmol/L (-3-3) FiO2 50.0 35 Nasal Screen MRSA (PCR) Negative (Negative) Test 07/12/18 16:20 07/13/18 03:30 07/13/18 06:30 07/13/18 09:15 O2 Saturation 95 % (92-99) 95 % (92-99) Arterial Blood pH 7.41 (7.35-7.45) 7.45 (7.35-7.45) Arterial Blood pCO2 at Patient Temp 41 mmHg (35-46) 34 mmHg (35-46) Arterial Blood pO2 at Patient Temp 76 mmHg (75-108) 74 mmHg (75-108) Arterial Blood HCO3 25 mmol/L (21-28) 23 mmol/L (21-28) Arterial Blood Base Excess 0 mmol/L (-3-3) -1 mmol/L (-3-3) FiO2 35 35 White Blood Count 5.8 x10^3/uL (4.0-11.0) Red Blood Count 3.33 x10^6/uL (4.30-5.70) Hemoglobin 11.4 g/dL (13.0-17.5) Hematocrit 33.1 % (39.0-53.0) Mean Corpuscular Volume 99 fL (79-100) Mean Corpuscular Hemoglobin 34 pg (25-35) Mean Corpuscular Hemoglobin Concent 34 g/dL (31-37) Red Cell Distribution Width 14.0 % (11.5-14.5) Platelet Count 214 x10^3/uL (140-400) Neutrophils (%) (Auto) 91 % (31-73) Lymphocytes (%) (Auto) 5 % (24-48) Monocytes (%) (Auto) 5 % (0-9) Eosinophils (%) (Auto) 0 % (0-3) Basophils (%) (Auto) 0 % (0-3) Neutrophils # (Auto) 5.2 x10^3uL (1.8-7.7) Lymphocytes # (Auto) 0.3 x10^3/uL (1.0-4.8) Monocytes # (Auto) 0.3 x10^3/uL (0.0-1.1) Eosinophils # (Auto) 0.0 x10^3/uL (0.0-0.7) Basophils # (Auto) 0.0 x10^3/uL (0.0-0.2) Sodium Level 140 mmol/L (136-145) Potassium Level 4.6 mmol/L (3.5-5.1) Chloride Level 108 mmol/L (98-107) Carbon Dioxide Level 26 mmol/L (21-32) Anion Gap 6 (6-14) Blood Urea Nitrogen 19 mg/dL (8-26) Creatinine 1.0 mg/dL (0.7-1.3) Estimated GFR (Cockcroft-Gault) 77.6 Glucose Level 194 mg/dL (70-99) Calcium Level 8.1 mg/dL (8.5-10.1) Urine Opiates Screen Pos (NEG) Urine Methadone Screen Neg (NEG) Urine Barbiturates Neg (NEG) Urine Phencyclidine Screen Neg (NEG) Urine Amphetamine/Methamphetamine Neg (NEG) Urine Benzodiazepines Screen Pos (NEG) Urine Cocaine Screen Neg (NEG) Urine Cannabinoids Screen Neg (NEG) Urine Ethyl Alcohol Neg (NEG) Test 07/13/18 11:50 O2 Saturation 95 % (92-99) Arterial Blood pH 7.34 (7.35-7.45) Arterial Blood pCO2 at Patient Temp 49 mmHg (35-46) Arterial Blood pO2 at Patient Temp 83 mmHg (75-108) Arterial Blood HCO3 26 mmol/L (21-28) Arterial Blood Base Excess 0 mmol/L (-3-3) FiO2 35 Laboratory Tests Test 07/12/18 16:20 07/13/18 03:30 07/13/18 06:30 07/13/18 09:15 O2 Saturation 95 % (92-99) 95 % (92-99) Arterial Blood pH 7.41 (7.35-7.45) 7.45 (7.35-7.45) Arterial Blood pCO2 at Patient Temp 41 mmHg (35-46) 34 mmHg (35-46) Arterial Blood pO2 at Patient Temp 76 mmHg (75-108) 74 mmHg (75-108) Arterial Blood HCO3 25 mmol/L (21-28) 23 mmol/L (21-28) Arterial Blood Base Excess 0 mmol/L (-3-3) -1 mmol/L (-3-3) FiO2 35 35 White Blood Count 5.8 x10^3/uL (4.0-11.0) Red Blood Count 3.33 x10^6/uL (4.30-5.70) Hemoglobin 11.4 g/dL (13.0-17.5) Hematocrit 33.1 % (39.0-53.0) Mean Corpuscular Volume 99 fL (79-100) Mean Corpuscular Hemoglobin 34 pg (25-35) Mean Corpuscular Hemoglobin Concent 34 g/dL (31-37) Red Cell Distribution Width 14.0 % (11.5-14.5) Platelet Count 214 x10^3/uL (140-400) Neutrophils (%) (Auto) 91 % (31-73) Lymphocytes (%) (Auto) 5 % (24-48) Monocytes (%) (Auto) 5 % (0-9) Eosinophils (%) (Auto) 0 % (0-3) Basophils (%) (Auto) 0 % (0-3) Neutrophils # (Auto) 5.2 x10^3uL (1.8-7.7) Lymphocytes # (Auto) 0.3 x10^3/uL (1.0-4.8) Monocytes # (Auto) 0.3 x10^3/uL (0.0-1.1) Eosinophils # (Auto) 0.0 x10^3/uL (0.0-0.7) Basophils # (Auto) 0.0 x10^3/uL (0.0-0.2) Sodium Level 140 mmol/L (136-145) Potassium Level 4.6 mmol/L (3.5-5.1) Chloride Level 108 mmol/L (98-107) Carbon Dioxide Level 26 mmol/L (21-32) Anion Gap 6 (6-14) Blood Urea Nitrogen 19 mg/dL (8-26) Creatinine 1.0 mg/dL (0.7-1.3) Estimated GFR (Cockcroft-Gault) 77.6 Glucose Level 194 mg/dL (70-99) Calcium Level 8.1 mg/dL (8.5-10.1) Urine Opiates Screen Pos (NEG) Urine Methadone Screen Neg (NEG) Urine Barbiturates Neg (NEG) Urine Phencyclidine Screen Neg (NEG) Urine Amphetamine/Methamphetamine Neg (NEG) Urine Benzodiazepines Screen Pos (NEG) Urine Cocaine Screen Neg (NEG) Urine Cannabinoids Screen Neg (NEG) Urine Ethyl Alcohol Neg (NEG) Test 07/13/18 11:50 O2 Saturation 95 % (92-99) Arterial Blood pH 7.34 (7.35-7.45) Arterial Blood pCO2 at Patient Temp 49 mmHg (35-46) Arterial Blood pO2 at Patient Temp 83 mmHg (75-108) Arterial Blood HCO3 26 mmol/L (21-28) Arterial Blood Base Excess 0 mmol/L (-3-3) FiO2 35 Medications Current Medications Albuterol/ Ipratropium (Duoneb) 3 ml 1X ONCE NEB Last administered on at 08:21; Start 07/12/18 at 08:30; Stop 07/12/18 at 08:31; Status DC Albuterol Sulfate (Ventolin Neb Soln) 10 mg 1X ONCE CONT NEB Last administered on 07/12/18 08:21; Start 07/12/18 at 08:30; Stop 07/12/18 at 08:31 ; Status DC Methylprednisolone Sodium Succinate (SOLU-Medrol 125MG VIAL) 125 mg 1X ONCE IV Last administered on 07/12/18at 08:16; Start 07/12/18 at 08:30; Stop 07/12/18 at 08:31; Status DC Lorazepam (Ativan) 0.5 mg 1X ONCE IV Last administered on 07/12/18at 08:20; Start 07/12/18 at 08:30; Stop 07/12/18 at 08:31; Status DC Sodium Chloride 1,000 ml @ 75 mls/hr [id number] IV Last administered on at 00:07; Start 07/12/18 at 10:00; Stop 07/13/18 at 09:59; Status DC Fentanyl Citrate 30 ml @ 0 mls/hr CONT PRN IV PER PROTOCOL Last administered on 07/13/18at 07:45; Start 07/12/18 at 09:30 Propofol 100 ml @ 0 mls/hr CONT PRN IV PER PROTOCOL Last administered on at 17:06; Start 07/12/18 at 09:30 Fentanyl Citrate (Fentanyl 2ml Vial) 50 mcg PRN Q1HR PRN IV see comments Last administered on 07/12/18at 10:49; Start 07/12/18 at 09:30 Chlorhexidine Gluconate (Peridex) 15 ml BID MM Last administered on 07/13/18at 07:49; Start 07/12/18 at 21:00 Methylprednisolone Sodium Succinate (SOLU-Medrol 125MG VIAL) 125 mg Q6HRS IV Last administered on 07/13/18at 12:18; Start 07/12/18 at 12:00 Levofloxacin/ Dextrose 100 ml @ 100 mls/hr Q24H IV Last administered on at 12:18; Start 07/12/18 at 11:00 Fentanyl Citrate (Fentanyl 2ml Vial) 100 mcg STK-MED ONCE .ROUTE ; Start at 10:17; Stop 07/12/18 at 10:18; Status DC Rocuronium [place] (Zemuron) 50 mg STK-MED ONCE .ROUTE ; Start 07/12/18 at 10:18 ; Stop 07/12/18 at 10:19; Status DC Etomidate (Amidate) 20 mg STK-MED ONCE IV ; Start 07/12/18 at 10:18; Stop at 10:19; Status DC Enoxaparin Sodium (Lovenox 40mg Syringe) 40 mg Q24H SQ Last administered on at 16:53; Start 07/12/18 at 16:00 Pantoprazole Sodium (PROTONIX VIAL for IV PUSH) 40 mg DAILYAC IVP Last administered on 07/13/18at 07:44; Start 07/12/18 at 11:30 Midazolam HCl 100 ml @ 0 mls/hr CONT PRN IV PER PROTOCOL; Start 07/12/18 at 11: 45; Status Cancel Lorazepam (Ativan) 1 mg PRN Q2HR PRN IV ANXIETY / AGITATION Last administered on 07/12/18at 15:16; Start 07/12/18 at 14:15 Midazolam HCl 100 ml @ 5 mls/hr CONT PRN IV SEE I/O RECORD Last administered on 07/13/18at 00:07; Start 07/12/18 at 22:00 Albuterol/ Ipratropium (Duoneb) 3 ml Q4HRS NEB Last administered on 07/13/18at 11:57; Start 07/13/18 at 00:00 Active Scripts Active Proair Hfa Inhaler (Albuterol Sulfate) 8.5 Gm Hfa.aer.ad 1 Puff INH PRN Q6HRS PRN Prednisone 20 Mg Tablet 40 Mg PO DAILY 5 Days Proair Hfa (Albuterol Sulfate) 8.5 Gm Hfa.aer.ad 8.5 Gm IH Q4HRS PRN 5 Days Prednisone 50 Mg Tablet 50 Mg PO DAILY 7 Days Proair Hfa Inhaler (Albuterol Sulfate) 8.5 Gm Hfa.aer.ad 1 Puff INH PRN Q6HRS PRN 30 Days Proair Respiclick (Albuterol Sulfate) 90 Mcg Aer.pow.ba 1 Puff IH PRN Q6HRS PRN Azithromycin Tablet (Azithromycin) 250 Mg Tablet 1 Pkg PO UD Tessalon Perle (Benzonatate) 100 Mg Capsule 1 Cap PO TID Prednisone 50 Mg Tablet 1 Tab PO DAILY Ultram (Tramadol Hcl) 50 Mg Tablet 50 Mg PO Q6H PRN Valtrex (Valacyclovir Hcl) 1,000 Mg Tablet 1 Tab PO TID Reported Proair Hfa Inhaler (Albuterol Sulfate) 8.5 Gm Hfa.aer.ad 1 Puff INH PRN Q6HRS PRN Vitals/I & O Vital Sign - Last 24 Hours 07/12/18 07/12/18 07/12/18 07/12/18 15:00 15:34 16:00 16:00 Temp 97.9 97.9 Pulse 108 108 Resp 24 24 B/P (MAP) 107/72 (84) 93/60 (71) Pulse Ox 96 96 98 O2 Delivery Ventilator Ventilator Ventilator Mechanical Ventilator 07/12/18 07/12/18 07/12/18 07/12/18 17:00 17:14 17:48 18:00 Pulse 108 108 Resp 24 24 B/P (MAP) 84/63 (70) 84/52 (63) Pulse Ox 95 100 96 O2 Delivery Ventilator Ventilator Ventilator Ventilator 07/12/18 07/12/18 07/12/18 07/12/18 19:00 19:30 20:00 20:00 Temp 97.7 97.7 Pulse 108 105 Resp 24 24 B/P (MAP) 96/61 (73) 95/62 (73) Pulse Ox 96 100 98 O2 Delivery Ventilator Ventilator Ventilator 07/12/18 07/12/18 07/12/18 07/12/18 20:00 21:00 21:40 22:00 Pulse 93 100 Resp 24 24 B/P (MAP) 94/61 (72) 82/56 (65) Pulse Ox 99 100 98 O2 Delivery Mechanical Ventilator Ventilator Ventilator Ventilator 07/12/18 07/12/18 07/13/18 07/13/18 22:58 23:50 00:00 00:00 Temp 99.1 99.1 Pulse 95 92 Resp 24 24 B/P (MAP) 85/59 (68) 91/61 (71) Pulse Ox 98 100 98 O2 Delivery Ventilator Ventilator Mechanical Ventilator Ventilator 07/13/18 07/13/18 07/13/18 07/13/18 00:45 01:00 02:00 02:26 Pulse 95 95 Resp 24 24 B/P (MAP) 92/60 (71) 96/62 (73) Pulse Ox 97 99 99 100 O2 Delivery Ventilator Ventilator Ventilator O2 Flow Rate 5.0 07/13/18 07/13/18 07/13/18 07/13/18 03:00 03:09 04:00 04:00 Temp 98.8 99.1 98.8 99.1 Pulse 95 71 Resp 24 24 B/P (MAP) 98/61 (73) 100/60 (73) Pulse Ox 98 97 98 O2 Delivery Ventilator Ventilator Mechanical Ventilator Ventilator 07/13/18 07/13/18 07/13/18 07/13/18 05:00 05:05 06:00 07:00 Pulse 76 72 61 Resp 24 24 24 B/P (MAP) 89/53 (65) 94/59 (71) 102/62 (75) Pulse Ox 99 97 99 93 O2 Delivery Ventilator Ventilator Ventilator Ventilator 07/13/18 07/13/18 07/13/18 07/13/18 07:34 07:45 08:00 08:00 Temp 98.7 98.7 Pulse 56 Resp 24 B/P (MAP) 109/64 (79) Pulse Ox 95 97 O2 Delivery Ventilator Ventilator Ventilator Mechanical Ventilator 07/13/18 07/13/18 07/13/18 07/13/18 08:29 09:00 09:04 10:00 Pulse 58 69 Resp 24 24 B/P (MAP) 118/70 (86) 130/73 (92) Pulse Ox 100 95 98 O2 Delivery Ventilator Ventilator Ventilator Ventilator 07/13/18 07/13/18 07/13/18 07/13/18 10:45 11:00 11:44 12:00 Temp 98.1 98.1 Pulse 72 56 Resp 12 13 B/P (MAP) 133/77 (95) 137/76 (96) Pulse Ox 98 98 98 O2 Delivery Ventilator Ventilator Ventilator Ventilator 07/13/18 07/13/18 07/13/18 12:00 13:00 13:11 Pulse 55 Resp 12 B/P (MAP) 142/77 (98) Pulse Ox 98 98 O2 Delivery Mechanical Ventilator Ventilator Ventilator Intake and Output 07/12/18 07/12/18 07/13/18 15:00 23:00 07:00 Intake Total 100 ml 773.03 ml 1410 ml Output Total 275 ml 240 ml 315 ml Balance -175 ml 533.03 ml 1095 ml KATERYNA THAKUR K III DO Jul 13, 2018 14:15
[2018-07-13 14:18] LABS: BASE EXCESS ABG 0 mmol/L (-3-3); HCO3 ABG 26 mmol/L (21-28); PCO2 ABG 46 mmHg (35-46); PO2 ABG 70 mmHg (75-108); SAT O2 ABG 93 % (92-99)
[2018-07-13 14:56] LABS: FIO2 ABG 30
[2018-07-13 15:44] LABS: BASE EXCESS ABG -2 mmol/L (-3-3); HCO3 ABG 23 mmol/L (21-28); PCO2 ABG 41 mmHg (35-46); PO2 ABG 80 mmHg (75-108); SAT O2 ABG 95 % (92-99)
[2018-07-13] MEDS: ENOXAPARIN 40 MG/0.4 ML SYRINGE. SQ SCH (15:47)
[2018-07-13 17:20] LABS: FIO2 ABG 30
[2018-07-14] VITALS (16 sets, daily range): BP systolic 129–172; BP diastolic 66–94
[2018-07-14] MEDS: IPRATRPIUM/ALBUTEROL 0.5/2.5MG 3 ML NEBU. NEB SCH ×6 (00:05→20:58)
[2018-07-14] MEDS: methylPREDNISolone SOD SUCC PF 125 MG/2 ML VIAL. IV SCH ×2 (01:04→06:29)
[2018-07-14] MEDS: PANTOPRAZOLE IV PUSH 40 MG VIAL. IVP SCH (08:57)
--- NOTE | 2018-07-14 10:45 | PDOC ---
PULMONARY PROGRESS NOTES Subjective extubated 07/13 doing well on canula Vitals Vital Signs Date Time Temp Pulse Resp B/P (MAP) Pulse Ox O2 Delivery O2 Flow Rate FiO2 07/14/18 10:00 80 16 150/84 (106) 95 Nasal Cannula 2.0 07/14/18 07:00 98.0 98.0 Comments General: Alert, No acute distress HEENT: Other (nc at perrl nose clear, orally intubated... neck no lad, thyromegaly) Lungs: Clear Cardiovascular: S1, S2 Abdomen: Soft, Non-tender Neuro Exam: Alert Extremities: No Edema Skin: Warm Labs Laboratory Tests Test 07/12/18 12:45 07/12/18 16:20 07/13/18 03:30 07/13/18 06:30 O2 Saturation 93 % (92-99) 95 % (92-99) Arterial Blood pH 7.25 (7.35-7.45) 7.41 (7.35-7.45) Arterial Blood pCO2 at Patient Temp 54 mmHg (35-46) 41 mmHg (35-46) Arterial Blood pO2 at Patient Temp 77 mmHg (75-108) 76 mmHg (75-108) Arterial Blood HCO3 23 mmol/L (21-28) 25 mmol/L (21-28) Arterial Blood Base Excess -5 mmol/L (-3-3) 0 mmol/L (-3-3) FiO2 35 35 White Blood Count 5.8 x10^3/uL (4.0-11.0) Red Blood Count 3.33 x10^6/uL (4.30-5.70) Hemoglobin 11.4 g/dL (13.0-17.5) Hematocrit 33.1 % (39.0-53.0) Mean Corpuscular Volume 99 fL (79-100) Mean Corpuscular Hemoglobin 34 pg (25-35) Mean Corpuscular Hemoglobin Concent 34 g/dL (31-37) Red Cell Distribution Width 14.0 % (11.5-14.5) Platelet Count 214 x10^3/uL (140-400) Neutrophils (%) (Auto) 91 % (31-73) Lymphocytes (%) (Auto) 5 % (24-48) Monocytes (%) (Auto) 5 % (0-9) Eosinophils (%) (Auto) 0 % (0-3) Basophils (%) (Auto) 0 % (0-3) Neutrophils # (Auto) 5.2 x10^3uL (1.8-7.7) Lymphocytes # (Auto) 0.3 x10^3/uL (1.0-4.8) Monocytes # (Auto) 0.3 x10^3/uL (0.0-1.1) Eosinophils # (Auto) 0.0 x10^3/uL (0.0-0.7) Basophils # (Auto) 0.0 x10^3/uL (0.0-0.2) Sodium Level 140 mmol/L (136-145) Potassium Level 4.6 mmol/L (3.5-5.1) Chloride Level 108 mmol/L (98-107) Carbon Dioxide Level 26 mmol/L (21-32) Anion Gap 6 (6-14) Blood Urea Nitrogen 19 mg/dL (8-26) Creatinine 1.0 mg/dL (0.7-1.3) Estimated GFR (Cockcroft-Gault) 77.6 Glucose Level 194 mg/dL (70-99) Calcium Level 8.1 mg/dL (8.5-10.1) Urine Opiates Screen Pos (NEG) Urine Methadone Screen Neg (NEG) Urine Barbiturates Neg (NEG) Urine Phencyclidine Screen Neg (NEG) Urine Amphetamine/Methamphetamine Neg (NEG) Urine Benzodiazepines Screen Pos (NEG) Urine Cocaine Screen Neg (NEG) Urine Cannabinoids Screen Neg (NEG) Urine Ethyl Alcohol Neg (NEG) Test 07/13/18 09:15 07/13/18 11:50 07/13/18 14:05 07/13/18 15:40 O2 Saturation 95 % (92-99) 95 % (92-99) 93 % (92-99) 95 % (92-99) Arterial Blood pH 7.45 (7.35-7.45) 7.34 (7.35-7.45) 7.37 (7.35-7.45) 7.37 (7.35-7.45) Arterial Blood pCO2 at Patient Temp 34 mmHg (35-46) 49 mmHg (35-46) 46 mmHg (35-46) 41 mmHg (35-46) Arterial Blood pO2 at Patient Temp 74 mmHg (75-108) 83 mmHg (75-108) 70 mmHg (75-108) 80 mmHg (75-108) Arterial Blood HCO3 23 mmol/L (21-28) 26 mmol/L (21-28) 26 mmol/L (21-28) 23 mmol/L (21-28) Arterial Blood Base Excess -1 mmol/L (-3-3) 0 mmol/L (-3-3) 0 mmol/L (-3-3) -2 mmol/L (-3-3) FiO2 35 35 30 30 Laboratory Tests Test 07/13/18 11:50 07/13/18 14:05 07/13/18 15:40 O2 Saturation 95 % (92-99) 93 % (92-99) 95 % (92-99) Arterial Blood pH 7.34 (7.35-7.45) 7.37 (7.35-7.45) 7.37 (7.35-7.45) Arterial Blood pCO2 at Patient Temp 49 mmHg (35-46) 46 mmHg (35-46) 41 mmHg (35-46) Arterial Blood pO2 at Patient Temp 83 mmHg (75-108) 70 mmHg (75-108) 80 mmHg (75-108) Arterial Blood HCO3 26 mmol/L (21-28) 26 mmol/L (21-28) 23 mmol/L (21-28) Arterial Blood Base Excess 0 mmol/L (-3-3) 0 mmol/L (-3-3) -2 mmol/L (-3-3) FiO2 35 30 30 Medications Active Scripts Medications Dose Route/Sig Max Daily Dose Days Date Category Proair Hfa Inhaler (Albuterol Sulfate) 8.5 Gm Hfa.aer.ad 1 Puff INH PRN Q6HRS PRN 07/10/18 Rx Prednisone 20 Mg Tablet 40 Mg PO DAILY 5 07/10/18 Rx Proair Hfa (Albuterol Sulfate) 8.5 Gm Hfa.aer.ad 8.5 Gm IH Q4HRS PRN 5 06/08/18 Rx Prednisone 50 Mg Tablet 50 Mg PO DAILY 7 06/08/18 Rx Proair Hfa Inhaler (Albuterol Sulfate) 8.5 Gm Hfa.aer.ad 1 Puff INH PRN Q6HRS PRN 30 05/11/18 Rx Proair Respiclick (Albuterol Sulfate) 90 Mcg Aer.pow.ba 1 Puff IH PRN Q6HRS PRN 11/28/16 Rx Azithromycin Tablet (Azithromycin) 250 Mg Tablet 1 Pkg PO UD 11/28/16 Rx Tessalon Perle (Benzonatate) 100 Mg Capsule 1 Cap PO TID 11/28/16 Rx Prednisone 50 Mg Tablet 1 Tab PO DAILY 11/28/16 Rx Ultram (Tramadol Hcl) 50 Mg Tablet 50 Mg PO Q6H PRN 07/24/16 Rx Valtrex (Valacyclovir Hcl) 1,000 Mg Tablet 1 Tab PO TID 07/24/16 Rx Proair Hfa Inhaler (Albuterol Sulfate) 8.5 Gm Hfa.aer.ad 1 Puff INH PRN Q6HRS PRN 05/13/16 Reported Comments cxr reviewed, no infilt. ett ok Impression . 1. Acute hypoxemic respiratory failure secondary to acute exacerbation of chronic obstructive pulmonary disease and acute bronchitis . extubated 07/13 2. Acute exacerbation of chronic obstructive pulmonary disease. 3. Acute bronchitis. 4. Tobacco habituation. Plan . 1. Titrate FiO2 to keep O2 saturation 94%. 2. Nasal canula 3. taper steroids 4. cont Levaquin. 5. Lovenox for DVT prophylaxis. 6. oral nutrition 7. discussed with RN and RT./ transfer to floor KATHERIN SUN MD Jul 14, 2018 10:45
[2018-07-14] MEDS: predniSONE 20 MG TABLET PO SCH (11:41)
--- NOTE | 2018-07-14 13:29 | PDOC ---
PROGRESS NOTES Chief Complaint Chief Complaint Acute respiratory failure with COPD/Asthma exacerbation HTN Bronchitis, COPD Gastritis tobaccoism plan: fu with pulm cont levaquin taper steroid to prednison to 40mg daily cont duoneb, albuterol prn dvt, gi ppx homeless, SW consult History of Present Illness History of Present Illness ROS: no fever, chills, sob or chest pain extubate yesterday on NC 2L pt was not smoking for 1m till recently Vitals Vitals Vital Signs Date Time Temp Pulse Resp B/P (MAP) Pulse Ox O2 Delivery O2 Flow Rate FiO2 07/14/18 12:30 94 Nasal Cannula 2.0 07/14/18 11:00 65 16 133/69 (90) 07/14/18 07:00 98.0 98.0 Physical Exam General: Alert, Cooperative Heart: Regular rate, Normal S1 Lungs: Wheezing (bl might wheezing with tightness) Abdomen: Normal bowel sounds, Soft Extremities: No clubbing, No cyanosis Skin: No rashes, No breakdown Labs LABS Laboratory Tests Test 07/13/18 14:05 07/13/18 15:40 O2 Saturation 93 % (92-99) 95 % (92-99) Arterial Blood pH 7.37 (7.35-7.45) 7.37 (7.35-7.45) Arterial Blood pCO2 at Patient Temp 46 mmHg (35-46) 41 mmHg (35-46) Arterial Blood pO2 at Patient Temp 70 mmHg (75-108) 80 mmHg (75-108) Arterial Blood HCO3 26 mmol/L (21-28) 23 mmol/L (21-28) Arterial Blood Base Excess 0 mmol/L (-3-3) -2 mmol/L (-3-3) FiO2 30 30 Assessment and Plan Assessmemt and Plan Problems Medical Problems: (1) COPD (chronic obstructive pulmonary disease) Status: Acute Comment Review of Relevant I have reviewed the following items bárbara (where applicable) has been applied. Labs Laboratory Tests Test 07/12/18 16:20 07/13/18 03:30 07/13/18 06:30 07/13/18 09:15 O2 Saturation 95 % (92-99) 95 % (92-99) Arterial Blood pH 7.41 (7.35-7.45) 7.45 (7.35-7.45) Arterial Blood pCO2 at Patient Temp 41 mmHg (35-46) 34 mmHg (35-46) Arterial Blood pO2 at Patient Temp 76 mmHg (75-108) 74 mmHg (75-108) Arterial Blood HCO3 25 mmol/L (21-28) 23 mmol/L (21-28) Arterial Blood Base Excess 0 mmol/L (-3-3) -1 mmol/L (-3-3) FiO2 35 35 White Blood Count 5.8 x10^3/uL (4.0-11.0) Red Blood Count 3.33 x10^6/uL (4.30-5.70) Hemoglobin 11.4 g/dL (13.0-17.5) Hematocrit 33.1 % (39.0-53.0) Mean Corpuscular Volume 99 fL (79-100) Mean Corpuscular Hemoglobin 34 pg (25-35) Mean Corpuscular Hemoglobin Concent 34 g/dL (31-37) Red Cell Distribution Width 14.0 % (11.5-14.5) Platelet Count 214 x10^3/uL (140-400) Neutrophils (%) (Auto) 91 % (31-73) Lymphocytes (%) (Auto) 5 % (24-48) Monocytes (%) (Auto) 5 % (0-9) Eosinophils (%) (Auto) 0 % (0-3) Basophils (%) (Auto) 0 % (0-3) Neutrophils # (Auto) 5.2 x10^3uL (1.8-7.7) Lymphocytes # (Auto) 0.3 x10^3/uL (1.0-4.8) Monocytes # (Auto) 0.3 x10^3/uL (0.0-1.1) Eosinophils # (Auto) 0.0 x10^3/uL (0.0-0.7) Basophils # (Auto) 0.0 x10^3/uL (0.0-0.2) Sodium Level 140 mmol/L (136-145) Potassium Level 4.6 mmol/L (3.5-5.1) Chloride Level 108 mmol/L (98-107) Carbon Dioxide Level 26 mmol/L (21-32) Anion Gap 6 (6-14) Blood Urea Nitrogen 19 mg/dL (8-26) Creatinine 1.0 mg/dL (0.7-1.3) Estimated GFR (Cockcroft-Gault) 77.6 Glucose Level 194 mg/dL (70-99) Calcium Level 8.1 mg/dL (8.5-10.1) Urine Opiates Screen Pos (NEG) Urine Methadone Screen Neg (NEG) Urine Barbiturates Neg (NEG) Urine Phencyclidine Screen Neg (NEG) Urine Amphetamine/Methamphetamine Neg (NEG) Urine Benzodiazepines Screen Pos (NEG) Urine Cocaine Screen Neg (NEG) Urine Cannabinoids Screen Neg (NEG) Urine Ethyl Alcohol Neg (NEG) Test 07/13/18 11:50 07/13/18 14:05 07/13/18 15:40 O2 Saturation 95 % (92-99) 93 % (92-99) 95 % (92-99) Arterial Blood pH 7.34 (7.35-7.45) 7.37 (7.35-7.45) 7.37 (7.35-7.45) Arterial Blood pCO2 at Patient Temp 49 mmHg (35-46) 46 mmHg (35-46) 41 mmHg (35-46) Arterial Blood pO2 at Patient Temp 83 mmHg (75-108) 70 mmHg (75-108) 80 mmHg (75-108) Arterial Blood HCO3 26 mmol/L (21-28) 26 mmol/L (21-28) 23 mmol/L (21-28) Arterial Blood Base Excess 0 mmol/L (-3-3) 0 mmol/L (-3-3) -2 mmol/L (-3-3) FiO2 35 30 30 Laboratory Tests Test 07/13/18 14:05 07/13/18 15:40 O2 Saturation 93 % (92-99) 95 % (92-99) Arterial Blood pH 7.37 (7.35-7.45) 7.37 (7.35-7.45) Arterial Blood pCO2 at Patient Temp 46 mmHg (35-46) 41 mmHg (35-46) Arterial Blood pO2 at Patient Temp 70 mmHg (75-108) 80 mmHg (75-108) Arterial Blood HCO3 26 mmol/L (21-28) 23 mmol/L (21-28) Arterial Blood Base Excess 0 mmol/L (-3-3) -2 mmol/L (-3-3) FiO2 30 30 Medications Current Medications Albuterol/ Ipratropium (Duoneb) 3 ml 1X ONCE NEB Last administered on 08:21; Start 07/12/18 at 08:30; Stop 07/12/18 at 08:31; Status DC Albuterol Sulfate (Ventolin Neb Soln) 10 mg 1X ONCE CONT NEB Last administered on 07/12/18at 08:21; Start 07/12/18 at 08:30; Stop 07/12/18 at 08:31 ; Status DC Methylprednisolone Sodium Succinate (SOLU-Medrol 125MG VIAL) 125 mg 1X ONCE IV Last administered on 07/12/18at 08:16; Start 07/12/18 at 08:30; Stop 07/12/18 at 08:31; Status DC Lorazepam (Ativan) 0.5 mg 1X ONCE IV Last administered on 07/12/18at 08:20; Start 07/12/18 at 08:30; Stop 07/12/18 at 08:31; Status DC Sodium Chloride 1,000 ml @ 75 mls/hr [id number] IV Last administered on at 00:07; Start 07/12/18 at 10:00; Stop 07/13/18 at 09:59; Status DC Fentanyl Citrate 30 ml @ 0 mls/hr CONT PRN IV PER PROTOCOL Last administered on 07/13/18at 07:45; Start 07/12/18 at 09:30; Stop 07/14/18 at 07:29; Status DC Propofol 100 ml @ 0 mls/hr CONT PRN IV PER PROTOCOL Last administered on at 17:06; Start 07/12/18 at 09:30; Stop 07/14/18 at 07:29; Status DC Fentanyl Citrate (Fentanyl 2ml Vial) 50 mcg PRN Q1HR PRN IV see comments Last administered on 07/12/18at 10:49; Start 07/12/18 at 09:30 Chlorhexidine Gluconate (Peridex) 15 ml BID MM Last administered on 07/13/18at 07:49; Start 07/12/18 at 21:00; Stop 07/13/18 at 20:54; Status DC Methylprednisolone Sodium Succinate (SOLU-Medrol 125MG VIAL) 125 mg Q6HRS IV Last administered on 07/14/18at 06:29; Start 07/12/18 at 12:00; Stop 07/14/18 at 10:46; Status DC Levofloxacin/ Dextrose 100 ml @ 100 mls/hr Q24H IV Last administered on at 10:45; Start 07/12/18 at 11:00 Fentanyl Citrate (Fentanyl 2ml Vial) 100 mcg STK-MED ONCE .ROUTE ; Start at 10:17; Stop 07/12/18 at 10:18; Status DC Rocuronium [place] (Zemuron) 50 mg STK-MED ONCE .ROUTE ; Start 07/12/18 at 10:18 ; Stop 07/12/18 at 10:19; Status DC Etomidate (Amidate) 20 mg STK-MED ONCE IV ; Start 07/12/18 at 10:18; Stop at 10:19; Status DC Enoxaparin Sodium (Lovenox 40mg Syringe) 40 mg Q24H SQ Last administered on at 15:47; Start 07/12/18 at 16:00 Pantoprazole Sodium (PROTONIX VIAL for IV PUSH) 40 mg DAILYAC IVP Last administered on 07/14/18at 08:57; Start 07/12/18 at 11:30 Midazolam HCl 100 ml @ 0 mls/hr CONT PRN IV PER PROTOCOL; Start 07/12/18 at 11: 45; Status Cancel Lorazepam (Ativan) 1 mg PRN Q2HR PRN IV ANXIETY / AGITATION Last administered on 07/12/18at 15:16; Start 07/12/18 at 14:15 Midazolam HCl 100 ml @ 5 mls/hr CONT PRN IV SEE I/O RECORD Last administered on 07/13/18at 00:07; Start 07/12/18 at 22:00; Stop 07/14/18 at 07:29; Status DC Albuterol/ Ipratropium (Duoneb) 3 ml Q4HRS NEB Last administered on 07/14/18at 12:30; Start 07/13/18 at 00:00 Prednisone (Prednisone) 40 mg DAILY PO Last administered on 07/14/18at 11:41; Start 07/14/18 at 12:00 Lactobacillus Rhamnosus (Culturelle) 1 cap BID PO ; Start 07/14/18 at 21:00 Active Scripts Active Proair Hfa Inhaler (Albuterol Sulfate) 8.5 Gm Hfa.aer.ad 1 Puff INH PRN Q6HRS PRN Prednisone 20 Mg Tablet 40 Mg PO DAILY 5 Days Proair Hfa (Albuterol Sulfate) 8.5 Gm Hfa.aer.ad 8.5 Gm IH Q4HRS PRN 5 Days Prednisone 50 Mg Tablet 50 Mg PO DAILY 7 Days Proair Hfa Inhaler (Albuterol Sulfate) 8.5 Gm Hfa.aer.ad 1 Puff INH PRN Q6HRS PRN 30 Days Proair Respiclick (Albuterol Sulfate) 90 Mcg Aer.pow.ba 1 Puff IH PRN Q6HRS PRN Azithromycin Tablet (Azithromycin) 250 Mg Tablet 1 Pkg PO UD Tessalon Perle (Benzonatate) 100 Mg Capsule 1 Cap PO TID Prednisone 50 Mg Tablet 1 Tab PO DAILY Ultram (Tramadol Hcl) 50 Mg Tablet 50 Mg PO Q6H PRN Valtrex (Valacyclovir Hcl) 1,000 Mg Tablet 1 Tab PO TID Reported Proair Hfa Inhaler (Albuterol Sulfate) 8.5 Gm Hfa.aer.ad 1 Puff INH PRN Q6HRS PRN Vitals/I & O Vital Sign - Last 24 Hours 07/13/18 07/13/18 07/13/18 07/13/18 14:00 15:00 15:00 16:00 Pulse 62 71 Resp 13 14 B/P (MAP) 146/78 (100) 144/76 (98) Pulse Ox 97 98 96 100 O2 Delivery Ventilator Ventilator Ventilator Nasal Cannula O2 Flow Rate 2.0 07/13/18 07/13/18 07/13/18 07/13/18 16:00 16:00 17:00 18:00 Temp 98.2 98.2 Pulse 79 69 58 Resp 14 16 16 B/P (MAP) 165/90 (115) 145/79 (101) 144/86 (105) Pulse Ox 95 99 96 O2 Delivery Nasal Cannula Nasal Cannula Nasal Cannula Nasal Cannula O2 Flow Rate 2.0 2.0 2.0 2.0 07/13/18 07/13/18 07/13/18 07/13/18 19:00 19:40 20:00 20:00 Temp 97.8 97.8 Pulse 57 55 Resp 16 18 B/P (MAP) 155/86 (109) 161/95 (117) Pulse Ox 96 98 100 O2 Delivery Nasal Cannula Nasal Cannula Nasal Cannula Nasal Cannula O2 Flow Rate 2.0 2.0 2.0 2.0 07/13/1807/13/18 07/13/18 8// 21:00 22:00 23:00 00:00 Temp 97.7 97.7 Pulse 51 51 54 51 Resp 18 16 16 16 B/P (MAP) 149/82 (104) 145/81 (102) 144/76 (98) 156/82 (106) Pulse Ox 97 97 98 98 O2 Delivery Nasal Cannula Room Air Room Air Nasal Cannula O2 Flow Rate 2.0 2.0 07/14/1807/14/ 8/20/18 820/ 00:00 00:05 01:00 02:00 Pulse 60 56 Resp 16 16 B/P (MAP) 156/89 (111) 149/78 (101) Pulse Ox 94 92 O2 Delivery Nasal Cannula Nasal Cannula Nasal Cannula Nasal Cannula O2 Flow Rate 2.0 2.0 2.0 2.0 07/14/18 07/14/18 8//07/14/ 03:00 03:50 04:00 04:38 Temp 98.0 98.0 Pulse 54 76 Resp 16 16 B/P (MAP) 145/85 (105) 172/88 (116) Pulse Ox 99 97 96 O2 Delivery Nasal Cannula Nasal Cannula Nasal Cannula Nasal Cannula O2 Flow Rate 2.0 2.0 2.0 2.0 07/14/1807/14/ 8/18 820/18 05:00 06:00 07:00 08:00 Temp 98.0 98.0 Pulse 58 63 59 60 Resp 17 16 16 16 B/P (MAP) 152/83 (106) 138/80 (99) 145/87 (106) 137/72 (93) Pulse Ox 93 95 95 94 O2 Delivery Nasal Cannula Nasal Cannula Nasal Cannula Nasal Cannula O2 Flow Rate 2.0 2.0 2.0 2.0 07/14/1807/14/ 8/20/18 820/18 08:00 09:00 09:14 10:00 Pulse 80 80 Resp 16 16 B/P (MAP) 135/75 (95) 150/84 (106) Pulse Ox 92 97 95 O2 Delivery Nasal Cannula Nasal Cannula Nasal Cannula Nasal Cannula O2 Flow Rate 2.0 2.0 2.0 2.0 07/14/18 07/14/18 11:00 12:30 Pulse 65 Resp 16 B/P (MAP) 133/69 (90) Pulse Ox 95 94 O2 Delivery Nasal Cannula Nasal Cannula O2 Flow Rate 2.0 2.0 Intake and Output 07/13/18 07/13/18 07/14/18 15:01 23:01 07:01 Intake Total 160.16 ml 1190.44 ml 750 ml Output Total 502 ml 181 ml 545 ml Balance -341.84 ml 1009.44 ml 205 ml KENNETH PIEDRA MD Jul 14, 2018 13:29
[2018-07-14] MEDS ORDERED: ALBUTEROL SULFATE 2.5 MG/3 ML NEBU. NEB PRN (13:30)
[2018-07-14] MEDS ORDERED: DOCUSATE SODIUM 100 MG CAPSULE. PO PRN (13:30)
[2018-07-14] MEDS ORDERED: MORPHINE SULFATE 2 MG/ML VIAL. IV PRN (13:30)
[2018-07-14] MEDS ORDERED: traMADol 50 MG TABLET PO PRN (13:30)
[2018-07-14] MEDS ORDERED: ONDANSETRON PF 4 MG/2 ML VIAL. IV PRN (13:30)
[2018-07-14] MEDS ORDERED: ACETAMINOPHEN 325 MG TABLET. PO PRN (13:30)
[2018-07-14] MEDS: ENOXAPARIN 40 MG/0.4 ML SYRINGE. SQ SCH (16:17)
[2018-07-14] MEDS ORDERED: FAMOTIDINE 20 MG TABLET. PO SCH (21:00)
[2018-07-14] MEDS: LACTOBACILLUS RHAMNOSUS GG 1 CAPSULE. PO SCH (21:18)
[2018-07-15 03:00] VITALS: BP 146/86
[2018-07-15 05:01] LABS: BASO % 0 % (0-3); EOS % 0 % (0-3); HEMATOCRIT 35.4 % (39.0-53.0); LYMPH # 0.8 x10^3/uL (1.0-4.8); LYMPH % 12 % (24-48); MEAN CORPUSCULAR HEMOGLOBIN 34 pg (25-35); MEAN CORPUSCULAR HGB CONC 34 g/dL (31-37); MEAN CORPUSCULAR VOLUME 99 fL (79-100); MONO # 0.8 x10^3/uL (0.0-1.1); MONO % 12 % (0-9); NEUT # 5.4 x10^3uL (1.8-7.7); NEUT % 77 % (31-73); PLATELET COUNT 212 x10^3/uL (140-400); RED BLOOD COUNT 3.57 x10^6/uL (4.30-5.70); RED CELL DISTRIBUTION WIDTH 14.1 % (11.5-14.5); WHITE BLOOD COUNT 7.1 x10^3/uL (4.0-11.0)
[2018-07-15 05:15] LABS: CALCIUM 8.9 mg/dL (8.5-10.1); CREATININE 0.9 mg/dL (0.7-1.3); GFR 87.6
[2018-07-15] MEDS: IPRATRPIUM/ALBUTEROL 0.5/2.5MG 3 ML NEBU. NEB SCH ×2 (06:48→11:10)
[2018-07-15 07:00] VITALS: BP 150/87
[2018-07-15] MEDS: predniSONE 20 MG TABLET PO SCH (08:29)
[2018-07-15] MEDS: LACTOBACILLUS RHAMNOSUS GG 1 CAPSULE. PO SCH (08:30)
[2018-07-15 11:00] VITALS: BP 160/94
[2018-07-15] MEDS ORDERED: CIPR500T94 PO (12:42)
[2018-07-15] MEDS ORDERED: PROAIR HFA8.5 GM INH (12:42)
[2018-07-15] MEDS ORDERED: BUDE10.22 IH (12:42)
[2018-07-15] MEDS ORDERED: PRED-220 PO (12:42)
--- NOTE | 2018-07-15 12:47 | PDOC3 ---
Discharge Summary Visit Information Date of Admission: Jul 12, 2018 Date of Discharge: Jul 15, 2018 Admitting Diagnosis: resp failutr Final Diagnosis Acute hypoxic respiratory failure with COPD/Asthma exacerbation HTN Bronchitis, COPD Gastritis tobaccoism Problems Medical Problems: (1) COPD (chronic obstructive pulmonary disease) Status: Acute Brief Hospital Course Allergies Allergies Coded Allergies Type Severity Reaction Last Updated Verified No Known Drug Allergies 05/13/16 No Vital Signs Vital Signs Date Time Temp Pulse Resp B/P (MAP) Pulse Ox O2 Delivery O2 Flow Rate FiO2 07/15/18 11:10 Room Air 07/15/18 11:00 97.9 70 18 160/94 (116) 91 97.9 07/14/18 21:19 2.0 Lab Results Laboratory Tests Test 07/13/18 14:05 07/13/18 15:40 07/15/18 03:15 O2 Saturation 93 % (92-99) 95 % (92-99) Arterial Blood pH 7.37 (7.35-7.45) 7.37 (7.35-7.45) Arterial Blood pCO2 at Patient Temp 46 mmHg (35-46) 41 mmHg (35-46) Arterial Blood pO2 at Patient Temp 70 mmHg (75-108) 80 mmHg (75-108) Arterial Blood HCO3 26 mmol/L (21-28) 23 mmol/L (21-28) Arterial Blood Base Excess 0 mmol/L (-3-3) -2 mmol/L (-3-3) FiO2 30 30 White Blood Count 7.1 x10^3/uL (4.0-11.0) Red Blood Count 3.57 x10^6/uL (4.30-5.70) Hemoglobin 12.0 g/dL (13.0-17.5) Hematocrit 35.4 % (39.0-53.0) Mean Corpuscular Volume 99 fL (79-100) Mean Corpuscular Hemoglobin 34 pg (25-35) Mean Corpuscular Hemoglobin Concent 34 g/dL (31-37) Red Cell Distribution Width 14.1 % (11.5-14.5) Platelet Count 212 x10^3/uL (140-400) Neutrophils (%) (Auto) 77 % (31-73) Lymphocytes (%) (Auto) 12 % (24-48) Monocytes (%) (Auto) 12 % (0-9) Eosinophils (%) (Auto) 0 % (0-3) Basophils (%) (Auto) 0 % (0-3) Neutrophils # (Auto) 5.4 x10^3uL (1.8-7.7) Lymphocytes # (Auto) 0.8 x10^3/uL (1.0-4.8) Monocytes # (Auto) 0.8 x10^3/uL (0.0-1.1) Eosinophils # (Auto) 0.0 x10^3/uL (0.0-0.7) Basophils # (Auto) 0.0 x10^3/uL (0.0-0.2) Sodium Level 142 mmol/L (136-145) Potassium Level 4.0 mmol/L (3.5-5.1) Chloride Level 109 mmol/L (98-107) Carbon Dioxide Level 28 mmol/L (21-32) Anion Gap 5 (6-14) Blood Urea Nitrogen 24 mg/dL (8-26) Creatinine 0.9 mg/dL (0.7-1.3) Estimated GFR (Cockcroft-Gault) 87.6 Glucose Level 123 mg/dL (70-99) Calcium Level 8.9 mg/dL (8.5-10.1) Laboratory Tests Test 07/15/18 03:15 White Blood Count 7.1 x10^3/uL (4.0-11.0) Red Blood Count 3.57 x10^6/uL (4.30-5.70) Hemoglobin 12.0 g/dL (13.0-17.5) Hematocrit 35.4 % (39.0-53.0) Mean Corpuscular Volume 99 fL (79-100) Mean Corpuscular Hemoglobin 34 pg (25-35) Mean Corpuscular Hemoglobin Concent 34 g/dL (31-37) Red Cell Distribution Width 14.1 % (11.5-14.5) Platelet Count 212 x10^3/uL (140-400) Neutrophils (%) (Auto) 77 % (31-73) Lymphocytes (%) (Auto) 12 % (24-48) Monocytes (%) (Auto) 12 % (0-9) Eosinophils (%) (Auto) 0 % (0-3) Basophils (%) (Auto) 0 % (0-3) Neutrophils # (Auto) 5.4 x10^3uL (1.8-7.7) Lymphocytes # (Auto) 0.8 x10^3/uL (1.0-4.8) Monocytes # (Auto) 0.8 x10^3/uL (0.0-1.1) Eosinophils # (Auto) 0.0 x10^3/uL (0.0-0.7) Basophils # (Auto) 0.0 x10^3/uL (0.0-0.2) Sodium Level 142 mmol/L (136-145) Potassium Level 4.0 mmol/L (3.5-5.1) Chloride Level 109 mmol/L (98-107) Carbon Dioxide Level 28 mmol/L (21-32) Anion Gap 5 (6-14) Blood Urea Nitrogen 24 mg/dL (8-26) Creatinine 0.9 mg/dL (0.7-1.3) Estimated GFR (Cockcroft-Gault) 87.6 Glucose Level 123 mg/dL (70-99) Calcium Level 8.9 mg/dL (8.5-10.1) Brief Hospital Course Mr. Kapoor is a 57 old male, asthma, tobacco use, admit acute bronchtiis, hypoxic resp failure req. intubation steroids, nebs, toilet, levaquin much better, off 02 after 3 days DC home Discharge Information Condition at Discharge: Improved Follow Up: Weeks Disposition/Orders: D/C to Home Scheduled Azithromycin (Azithromycin Tablet) 250 Mg Tablet, 1 PKG PO UD, #6 Prescribed by: Carol Feliciano APRN on 11/28/161742 Last Action: HELD on 07/12/181510 by FELIX BUI Benzonatate (Tessalon Perle) 100 Mg Capsule, 1 CAP PO TID, #30 Prescribed by: Carol Feliciano APRN on 11/28/161742 Last Action: HELD on 07/12/181510 by FELIX BUI Budesonide/Formoterol Fumarate (Symbicort 80-4.5 Mcg Inhaler) 10.2 Gm Hfa.aer.ad , 1 PUFF IH BID, #1 Ref 1 Prescribed by: ELISEO CHAPPELL on 07/15/18 1242 Ciprofloxacin Hcl (Cipro) 500 Mg Tablet, 1 TAB PO BID, #10 Prescribed by: ELISEO CHAPPELL on 07/15/18 1242 Prednisone (Prednisone) 50 Mg Tablet, 1 TAB PO DAILY, #5 Prescribed by: Carol Feliciano APRN on 11/28/161742 Last Action: HELD on 07/12/18 151 by FELIX BUI Prednisone (Prednisone) 50 Mg Tablet, 50 MG PO DAILY for COPD Exacerbation for 7 Days, #7 Prescribed by: ELENITA POLLOCK APRN on 06/08/18 1408 Last Action: HELD on 07/12/18 151 by FELIX BUI Prednisone (Prednisone) 20 Mg Tablet, 40 MG PO DAILY for 5 Days, #10 Prescribed by: JANETTE CALL MD on 07/10/18 1947 Last Action: HELD on 07/12/181510 by FELIX BUI Prednisone (Prednisone ) 10 Mg Tablet, 10 MG PO UD, #30 Ref 0 Take 5 tablets by mouth daily for 2 days, then take 4 tablets by mouth daily for 2 days, then take 3 tablets by mouth daily for 2 days, then take 2 tablets by mouth daily for 2 days, then take 1 tablets by mouth daily for 2 days, then stop. Prescribed by: ELISEO CHAPPELL on 07/15/18 1242 Valacyclovir Hcl (Valtrex) 1,000 Mg Tablet, 1 TAB PO TID, #21 Prescribed by: JIMENA ESTRADA on 07/24/16 1716 Last Action: HELD on 07/12/181510 by FELIX BUI Scheduled PRN Albuterol Sulfate (Proair Respiclick) 90 Mcg Aer.pow.ba, 1 PUFF IH PRN Q6HRS PRN for SHORTNESS OF BREATH, #1 Prescribed by: Carol Feliciano APRN on 11/28/161742 Last Action: HELD on 07/12/18 151 by FELIX BUI Albuterol Sulfate (Proair Hfa Inhaler) 8.5 Gm Hfa.aer.ad, 1 PUFF INH PRN Q6HRS PRN for SHORTNESS OF BREATH for 30 Days, Ref 0 Prescribed by: SARA CHILD on 05/11/18 1047 Last Action: HELD on 07/12/181510 by FELIX BUI Albuterol Sulfate (Proair Hfa) 8.5 Gm Hfa.aer.ad, 8.5 GM IH Q4HRS PRN for WHEEZING for 5 Days Prescribed by: ELENITA POLLOCK APRN on 06/08/18 1411 Last Action: HELD on 07/12/181510 by FELIX BUI Albuterol Sulfate (Proair Hfa Inhaler) 8.5 Gm Hfa.aer.ad, 1 PUFF INH PRN Q6HRS PRN for SHORTNESS OF BREATH, #1 Ref 0 Prescribed by: JANETTE CALL MD on 07/10/181946 Last Action: HELD on 07/12/181510 by FELIX BUI Albuterol Sulfate (Proair Hfa Inhaler) 8.5 Gm Hfa.aer.ad, 1 PUFF INH PRN Q6HRS PRN for SHORTNESS OF BREATH, #1 Ref 0 Prescribed by: ELISEO CHAPPELL on 07/15/18 1242 Tramadol Hcl (Ultram) 50 Mg Tablet, 50 MG PO Q6H PRN for PAIN, #20 Ref 0 Prescribed by: JIMENA ESTRADA on 07/24/16 1716 Last Action: HELD on 07/12/181510 by FELIX BUI Patient Instructions Patient Instructions going to live with his mother > 30 min ELISEO CHAPPELL MD Jul 15, 2018 12:47
--- NOTE | 2018-07-15 13:42 | PDOC ---
PULMONARY PROGRESS NOTES Subjective extubated 07/13 doing well on canula Vitals Vital Signs Date Time Temp Pulse Resp B/P (MAP) Pulse Ox O2 Delivery O2 Flow Rate FiO2 07/15/18 11:10 Room Air 07/15/18 11:00 97.9 70 18 160/94 (116) 91 97.9 07/14/18 21:19 2.0 Comments General: Alert, No acute distress HEENT: Other (nc at perrl nose clear, orally intubated... neck no lad, thyromegaly) Lungs: Wheezing (bl might wheezing with tightness) Cardiovascular: S1, S2 Abdomen: Soft, Non-tender Neuro Exam: Alert Extremities: No Edema Skin: Warm Labs Laboratory Tests Test 07/13/18 14:05 07/13/18 15:40 07/15/18 03:15 O2 Saturation 93 % (92-99) 95 % (92-99) Arterial Blood pH 7.37 (7.35-7.45) 7.37 (7.35-7.45) Arterial Blood pCO2 at Patient Temp 46 mmHg (35-46) 41 mmHg (35-46) Arterial Blood pO2 at Patient Temp 70 mmHg (75-108) 80 mmHg (75-108) Arterial Blood HCO3 26 mmol/L (21-28) 23 mmol/L (21-28) Arterial Blood Base Excess 0 mmol/L (-3-3) -2 mmol/L (-3-3) FiO2 30 30 White Blood Count 7.1 x10^3/uL (4.0-11.0) Red Blood Count 3.57 x10^6/uL (4.30-5.70) Hemoglobin 12.0 g/dL (13.0-17.5) Hematocrit 35.4 % (39.0-53.0) Mean Corpuscular Volume 99 fL (79-100) Mean Corpuscular Hemoglobin 34 pg (25-35) Mean Corpuscular Hemoglobin Concent 34 g/dL (31-37) Red Cell Distribution Width 14.1 % (11.5-14.5) Platelet Count 212 x10^3/uL (140-400) Neutrophils (%) (Auto) 77 % (31-73) Lymphocytes (%) (Auto) 12 % (24-48) Monocytes (%) (Auto) 12 % (0-9) Eosinophils (%) (Auto) 0 % (0-3) Basophils (%) (Auto) 0 % (0-3) Neutrophils # (Auto) 5.4 x10^3uL (1.8-7.7) Lymphocytes # (Auto) 0.8 x10^3/uL (1.0-4.8) Monocytes # (Auto) 0.8 x10^3/uL (0.0-1.1) Eosinophils # (Auto) 0.0 x10^3/uL (0.0-0.7) Basophils # (Auto) 0.0 x10^3/uL (0.0-0.2) Sodium Level 142 mmol/L (136-145) Potassium Level 4.0 mmol/L (3.5-5.1) Chloride Level 109 mmol/L (98-107) Carbon Dioxide Level 28 mmol/L (21-32) Anion Gap 5 (6-14) Blood Urea Nitrogen 24 mg/dL (8-26) Creatinine 0.9 mg/dL (0.7-1.3) Estimated GFR (Cockcroft-Gault) 87.6 Glucose Level 123 mg/dL (70-99) Calcium Level 8.9 mg/dL (8.5-10.1) Laboratory Tests Test 07/15/18 03:15 White Blood Count 7.1 x10^3/uL (4.0-11.0) Red Blood Count 3.57 x10^6/uL (4.30-5.70) Hemoglobin 12.0 g/dL (13.0-17.5) Hematocrit 35.4 % (39.0-53.0) Mean Corpuscular Volume 99 fL (79-100) Mean Corpuscular Hemoglobin 34 pg (25-35) Mean Corpuscular Hemoglobin Concent 34 g/dL (31-37) Red Cell Distribution Width 14.1 % (11.5-14.5) Platelet Count 212 x10^3/uL (140-400) Neutrophils (%) (Auto) 77 % (31-73) Lymphocytes (%) (Auto) 12 % (24-48) Monocytes (%) (Auto) 12 % (0-9) Eosinophils (%) (Auto) 0 % (0-3) Basophils (%) (Auto) 0 % (0-3) Neutrophils # (Auto) 5.4 x10^3uL (1.8-7.7) Lymphocytes # (Auto) 0.8 x10^3/uL (1.0-4.8) Monocytes # (Auto) 0.8 x10^3/uL (0.0-1.1) Eosinophils # (Auto) 0.0 x10^3/uL (0.0-0.7) Basophils # (Auto) 0.0 x10^3/uL (0.0-0.2) Sodium Level 142 mmol/L (136-145) Potassium Level 4.0 mmol/L (3.5-5.1) Chloride Level 109 mmol/L (98-107) Carbon Dioxide Level 28 mmol/L (21-32) Anion Gap 5 (6-14) Blood Urea Nitrogen 24 mg/dL (8-26) Creatinine 0.9 mg/dL (0.7-1.3) Estimated GFR (Cockcroft-Gault) 87.6 Glucose Level 123 mg/dL (70-99) Calcium Level 8.9 mg/dL (8.5-10.1) Medications Active Scripts Medications Dose Route/Sig Max Daily Dose Days Date Category Proair Hfa Inhaler (Albuterol Sulfate) 8.5 Gm Hfa.aer.ad 1 Puff INH PRN Q6HRS PRN 07/10/18 Rx Prednisone 20 Mg Tablet 40 Mg PO DAILY 5 07/10/18 Rx Proair Hfa (Albuterol Sulfate) 8.5 Gm Hfa.aer.ad 8.5 Gm IH Q4HRS PRN 5 06/08/18 Rx Prednisone 50 Mg Tablet 50 Mg PO DAILY 7 06/08/18 Rx Proair Hfa Inhaler (Albuterol Sulfate) 8.5 Gm Hfa.aer.ad 1 Puff INH PRN Q6HRS PRN 30 05/11/18 Rx Proair Respiclick (Albuterol Sulfate) 90 Mcg Aer.pow.ba 1 Puff IH PRN Q6HRS PRN 11/28/16 Rx Azithromycin Tablet (Azithromycin) 250 Mg Tablet 1 Pkg PO UD 11/28/16 Rx Tessalon Perle (Benzonatate) 100 Mg Capsule 1 Cap PO TID 11/28/16 Rx Prednisone 50 Mg Tablet 1 Tab PO DAILY 11/28/16 Rx Ultram (Tramadol Hcl) 50 Mg Tablet 50 Mg PO Q6H PRN 07/24/16 Rx Valtrex (Valacyclovir Hcl) 1,000 Mg Tablet 1 Tab PO TID 07/24/16 Rx Proair Hfa Inhaler (Albuterol Sulfate) 8.5 Gm Hfa.aer.ad 1 Puff INH PRN Q6HRS PRN 05/13/16 Reported Comments cxr reviewed, no infilt. ett ok Impression . 1. Acute hypoxemic respiratory failure secondary to acute exacerbation of chronic obstructive pulmonary disease and acute bronchitis . extubated 07/13 2. Acute exacerbation of chronic obstructive pulmonary disease. 3. Acute bronchitis. 4. Tobacco habituation. Plan . 1. Titrate FiO2 to keep O2 saturation 94%. 2. Nasal canula 3. taper steroids 4. cont Levaquin. 5. Lovenox for DVT prophylaxis. 6. oral nutrition 7. discussed with KAN steel with [facility] KATHERIN SUN MD Jul 15, 2018 13:42
== END 2018-07-15 13:48 | disposition home or self-care (01) | DRG 208 ==
LOC: ER 07:57 → 1 WEST ICU 09:30 → 5 NORTH 07-14 17:06
PROVIDERS: ADMIT Internal Medicine; ATTEND Internal Medicine
PROC: 5A1945Z Respiratory Ventilation, 24-96 Consecutive Hours (ICD-10-PCS; principal; 2018-07-12)
PROC: 0BH17EZ Insertion of Endotracheal Airway into Trachea, Via Natural or Artificial Opening (ICD-10-PCS; 2018-07-12)
DX: J96.21 Acute and chronic respiratory failure with hypoxia (principal); J44.1 Chronic obstructive pulmonary disease with (acute) exacerbation; J44.0 Chronic obstructive pulmonary disease with (acute) lower respiratory infection; J45.901 Unspecified asthma with (acute) exacerbation; I10 Essential (primary) hypertension; F17.210 Nicotine dependence, cigarettes, uncomplicated; J20.9 Acute bronchitis, unspecified; K29.70 Gastritis, unspecified, without bleeding; Z89.422 Acquired absence of other left toe(s); Z59.0 Homelessness
CPT/HCPCS: 36415; 36600; 51702; 71045; 80048; 80307; 82805; 84484; 85007; 85025; 87641; 93005; 94002; 94003; 94640; 94644; 94660; 94760; 96374; 96375; C9113; J1650; J1956; J2060; J2250; J2704; J2930; J3010; J7030; J7512; J7613; J7620; 99285-25; G0479

== ENCOUNTER 2019-04-24 20:38 | Emergency (ER) | payer SELFPAY ==
[~2019-04-24] VITALS: Ht 177.8 cm; Wt 65.8 kg
[~2019-04-24 20:38] MED LIST changes: +ALBU2.5V8 IH; +ALBU2.5V8 INH; -ALBU8.5H8 IH; +BUDE10.22 IH; +CIPR500T94 PO; +PRED-220 PO; -PROAIR HFA8.5 GM INH
[2019-04-24] MEDS ORDERED: IV NORMAL SALINE 1000ML BAG 1,000 ML IV ONE (21:00)
--- NOTE | 2019-04-24 21:02 | PHYS DOC ---
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 Patient reports he had been walking outside today, and started have some increased shortness of breath so he walked to the fire station for EMS. EMS reports patient ambulatory to station, conversational. SPO2 94%, noted wheezing. Andrew reports that Mr. Johns didn't and treatment in route. Patient reports he has had several issues with his breathing over the past several weeks, reports he has been out of his inhaler for a little while, reports he is homeless so he does not have access to his medicines frequently. Reports his last exacerbation similar to this was personally to 3 weeks ago. Does report he had presented intubated for his shortness of breath. Patient presents to emergency room conversational, in no noted air hunger, speaking in multiple word sentences. (EDISON CASTELLANOS APRN) Review of Systems Review of Systems Constitutional: Denies fever or chills [] Eyes: Denies change in visual acuity, redness, or eye pain [] HENT: Denies nasal congestion or sore throat [] Respiratory: Reports cough shortness of breath [] Cardiovascular: No additional information not addressed in HPI [] GI: Denies abdominal pain, nausea, vomiting, bloody stools or diarrhea [] : Denies dysuria or hematuria [] Musculoskeletal: Denies back pain or joint pain [] Integument: Denies rash or skin lesions [] Neurologic: Denies headache, focal weakness or sensory changes [] Endocrine: Denies polyuria or polydipsia [] All other systems were reviewed and found to be within normal limits, except as documented in this note. (EDISON CASTELLANOS APRN) Current Medications Current Medications Current Medications Medications (Trade) Dose Ordered Sig/Faiza Start Time Stop Time Status Last Admin Dose Admin Albuterol Sulfate (Ventolin Neb Soln) 2.5 mg 1X ONCE 04/24/19 23:45 04/24/19 23:46 DC 04/24/19 23:47 2.5 MG Prednisone (Prednisone) 50 mg 1X ONCE 04/24/19 21:30 04/24/19 21:31 DC 04/24/19 21:30 50 MG Sodium Chloride 1,000 ml @ 1,000 mls/hr 1X ONCE 04/24/19 21:00 04/24/19 21:59 DC 04/24/19 21:00 1,000 MLS/HR (AALIYAH COX DO) Allergies Allergies Allergies Coded Allergies Type Severity Reaction Last Updated Verified No Known Drug Allergies 05/13/16 No (AALIYAH COX DO) Physical Exam Physical Exam Constitutional: Well developed, well nourished, no acute distress, non-toxic appearance. [] HENT: Normocephalic, atraumatic, bilateral external ears normal, oropharynx moist, no oral exudates, nose normal. [] Eyes: PERRLA, EOMI, conjunctiva normal, no discharge. [] Neck: Normal range of motion, no tenderness, supple, no stridor. [] Cardiovascular:Heart rate regular rhythm, no murmur [] Lungs & Thorax: Bilateral inspiratory and expiratory wheezing noted. Patient speaking multiple word sentences, no noted air hunger at this time. SPO2 remaining 94% on room air. Abdomen: Bowel sounds normal, soft, no tenderness, no masses, no pulsatile masses. [] Skin: Warm, dry, no erythema, no rash. [] Back: No tenderness, no CVA tenderness. [] Extremities: No tenderness, no cyanosis, no clubbing, ROM intact, no edema. [] Neurologic: Alert and oriented X 3, normal motor function, normal sensory function, no focal deficits noted. [] Psychologic: Affect normal, judgement normal, mood normal. [] (EDISON CASTELLANOS APRN) Current Patient Data Vital Signs Vital Signs Date Time Temp Pulse Resp B/P (MAP) Pulse Ox O2 Delivery O2 Flow Rate FiO2 04/25/19 00:19 68 117/72 (87) Room Air 04/24/19 22:49 91 04/24/19 20:45 97.5 20 97.5 (AALIYAH COX DO) Lab Values Laboratory Tests Test 04/24/19 20:40 04/24/19 21:33 Urine Collection Type Void Urine Color Yellow Urine Clarity Clear Urine pH 5.5 Urine Specific [place] <=1.005 Urine Protein Negative mg/dL (NEG-TRACE) Urine Glucose (UA) Negative mg/dL (NEG) Urine Ketones (Stick) Negative mg/dL (NEG) Urine Blood Negative (NEG) Urine Nitrite Negative (NEG) Urine Bilirubin Negative (NEG) Urine Urobilinogen Dipstick 0.2 mg/dL (0.2 mg/dL) Urine Leukocyte Esterase Negative (NEG) Urine RBC 0 /HPF (0-2) Urine WBC 0 /HPF (0-4) Urine Squamous Epithelial Cells Occ /LPF Urine Bacteria 0 /HPF (0-FEW) White Blood Count 6.4 x10^3/uL (4.0-11.0) Red Blood Count 3.98 x10^6/uL (4.30-5.70) L Hemoglobin 13.2 g/dL (13.0-17.5) Hematocrit 38.4 % (39.0-53.0) L Mean Corpuscular Volume 97 fL (79-100) Mean Corpuscular Hemoglobin 33 pg (25-35) Mean Corpuscular Hemoglobin Concent 34 g/dL (31-37) Red Cell Distribution Width 13.2 % (11.5-14.5) Platelet Count 214 x10^3/uL (140-400) Neutrophils (%) (Auto) 55 % (31-73) Lymphocytes (%) (Auto) 30 % (24-48) Monocytes (%) (Auto) 11 % (0-9) H Eosinophils (%) (Auto) 3 % (0-3) Basophils (%) (Auto) 1 % (0-3) Neutrophils # (Auto) 3.5 x10^3uL (1.8-7.7) Lymphocytes # (Auto) 1.9 x10^3/uL (1.0-4.8) Monocytes # (Auto) 0.7 x10^3/uL (0.0-1.1) Eosinophils # (Auto) 0.2 x10^3/uL (0.0-0.7) Basophils # (Auto) 0.1 x10^3/uL (0.0-0.2) Sodium Level 140 mmol/L (136-145) Potassium Level 4.2 mmol/L (3.5-5.1) Chloride Level 101 mmol/L (98-107) Carbon Dioxide Level 28 mmol/L (21-32) Anion Gap 11 (6-14) Blood Urea Nitrogen 16 mg/dL (8-26) Creatinine 1.3 mg/dL (0.7-1.3) Estimated GFR (Cockcroft-Gault) 57.1 Glucose Level 117 mg/dL (70-99) H Calcium Level 10.1 mg/dL (8.5-10.1) Troponin I Quantitative < 0.017 ng/mL (0.000-0.055) Ethyl Alcohol Level 213 mg/dL (0-10) H Laboratory Tests 04/24/19 21:33 Laboratory Tests 04/24/19 21:33 (AALIYAH COX DO) Lab Values Laboratory Tests Test 04/24/19 20:40 04/24/19 21:33 Urine Collection Type Void Urine Color Yellow Urine Clarity Clear Urine pH 5.5 Urine Specific [place] <=1.005 Urine Protein Negative mg/dL (NEG-TRACE) Urine Glucose (UA) Negative mg/dL (NEG) Urine Ketones (Stick) Negative mg/dL (NEG) Urine Blood Negative (NEG) Urine Nitrite Negative (NEG) Urine Bilirubin Negative (NEG) Urine Urobilinogen Dipstick 0.2 mg/dL (0.2 mg/dL) Urine Leukocyte Esterase Negative (NEG) Urine RBC 0 /HPF (0-2) Urine WBC 0 /HPF (0-4) Urine Squamous Epithelial Cells Occ /LPF Urine Bacteria 0 /HPF (0-FEW) White Blood Count 6.4 x10^3/uL (4.0-11.0) Red Blood Count 3.98 x10^6/uL (4.30-5.70) L Hemoglobin 13.2 g/dL (13.0-17.5) Hematocrit 38.4 % (39.0-53.0) L Mean Corpuscular Volume 97 fL (79-100) Mean Corpuscular Hemoglobin 33 pg (25-35) Mean Corpuscular Hemoglobin Concent 34 g/dL (31-37) Red Cell Distribution Width 13.2 % (11.5-14.5) Platelet Count 214 x10^3/uL (140-400) Neutrophils (%) (Auto) 55 % (31-73) Lymphocytes (%) (Auto) 30 % (24-48) Monocytes (%) (Auto) 11 % (0-9) H Eosinophils (%) (Auto) 3 % (0-3) Basophils (%) (Auto) 1 % (0-3) Neutrophils # (Auto) 3.5 x10^3uL (1.8-7.7) Lymphocytes # (Auto) 1.9 x10^3/uL (1.0-4.8) Monocytes # (Auto) 0.7 x10^3/uL (0.0-1.1) Eosinophils # (Auto) 0.2 x10^3/uL (0.0-0.7) Basophils # (Auto) 0.1 x10^3/uL (0.0-0.2) Sodium Level 140 mmol/L (136-145) Potassium Level 4.2 mmol/L (3.5-5.1) Chloride Level 101 mmol/L (98-107) Carbon Dioxide Level 28 mmol/L (21-32) Anion Gap 11 (6-14) Blood Urea Nitrogen 16 mg/dL (8-26) Creatinine 1.3 mg/dL (0.7-1.3) Estimated GFR (Cockcroft-Gault) 57.1 Glucose Level 117 mg/dL (70-99) H Calcium Level 10.1 mg/dL (8.5-10.1) Troponin I Quantitative < 0.017 ng/mL (0.000-0.055) Ethyl Alcohol Level 213 mg/dL (0-10) H Laboratory Tests 04/24/19 21:33 Laboratory Tests 04/24/19 21:33 (EDISON CASTELLANOS APRN) EKG EKG @2110 Dr Cox - Sinus Rhythm. No STEMI, No ST changes[] (EDISON CASTELLANOS APRN) Radiology/Procedures Radiology/Procedures No acute findings or changes, Elongated thorax consistent with COPD, per Dr Cox[] (EDISON CASTELLANOS APRN) Course & Med Decision Making Course & Med Decision Making Pertinent Labs and Imaging studies reviewed. (See chart for details) @2330 = patient resting calmly, lungs with minimal wheezing. patient in no appar ent respiratory distress at this time. Will give additional breathing treatment, monitor, and plan for discharge with Rx for albuterol. Patient in agreement[ 0025 - Patient resting calmly in bed at this time, no apparent respiratory distress or discomfort. Converses in full sentences. Reports he is feeling better, agreeable to discharge. ] (EDISON CASTELLANOS APRN) Dragon Disclaimer Dragon Disclaimer This electronic medical record was generated, in whole or in part, using a voice recognition dictation system. (EDISON CASTELLANOS APRN) Departure Departure Impression: Primary Impression: COPD (chronic obstructive pulmonary disease) Additional Impression: Alcohol abuse Disposition: HOME, SELF-CARE Condition: GOOD Referrals: NO PCP (PCP) Patient Instructions: Albuterol inhalation aerosol, Chronic Obstructive Pulmonary Disease Exacerbation, [id number] Scripts Albuterol Sulfate (VENTOLIN HFA INHALER) 18 Gm Hfa.aer.ad 1-2 PUFF INH Q4HRS for FOR ASTHMA, #1 INHALER 0 Refills Prov: EDISON CASTELLANOS APRN 04/25/19 Attending Signature Attending Signature I have reviewed the PA/MISSION COORDINATOR's note and plan of care. I was available for consultation as needed during the patient's visit in the emergency department. I agree with the clinical impression, plan, and disposition. (AALIYAH COX DO) Problem Qualifiers Primary Impression: COPD (chronic obstructive pulmonary disease) COPD type: COPD with acute exacerbation Qualified Codes: J44.1 - Chronic obstructive pulmonary disease with (acute) exacerbation EDISON CASTELLANOS APRN April 24, 2019 21:02 AALIYAH OCX DO Apr 25, 2019 04:07
[2019-04-24 21:08] LABS: BILIRUBIN,URINE NEGATIVE (NEG); CLARITY,URINE CLEAR; COLOR,URINE YELLOW; NITRITE,URINE NEGATIVE (NEG); PH,URINE 5.5; PROTEIN,URINE NEGATIVE (NEG-TRACE); UROBILINOGEN,URINE 0.2 mg/dL (0.2 mg/dL)
[2019-04-24 21:19] LABS: BACTERIA,URINE 0 /HPF (0-FEW); RBC,URINE 0 /HPF (0-2); SQUAMOUS EPITHELIAL CELL,UR OCC /LPF; WBC,URINE 0 /HPF (0-4)
[2019-04-24] MEDS ORDERED: ALBUTEROL SULFATE 2.5 MG/3 ML NEBU. NEB ONE ×2 (21:30→23:45)
[2019-04-24] MEDS ORDERED: predniSONE 10 MG TABLET PO ONE (21:30)
[2019-04-24 21:40] LABS: BASO # 0.1 x10^3/uL (0.0-0.2); BASO % 1 % (0-3); EOS # 0.2 x10^3/uL (0.0-0.7); EOS % 3 % (0-3); HEMATOCRIT 38.4 % (39.0-53.0); HEMOGLOBIN 13.2 g/dL (13.0-17.5); LYMPH # 1.9 x10^3/uL (1.0-4.8); LYMPH % 30 % (24-48); MEAN CORPUSCULAR HEMOGLOBIN 33 pg (25-35); MEAN CORPUSCULAR HGB CONC 34 g/dL (31-37); MEAN CORPUSCULAR VOLUME 97 fL (79-100); MONO # 0.7 x10^3/uL (0.0-1.1); MONO % 11 % (0-9); NEUT # 3.5 x10^3uL (1.8-7.7); NEUT % 55 % (31-73); PLATELET COUNT 214 x10^3/uL (140-400); RED BLOOD COUNT 3.98 x10^6/uL (4.30-5.70); RED CELL DISTRIBUTION WIDTH 13.2 % (11.5-14.5); WHITE BLOOD COUNT 6.4 x10^3/uL (4.0-11.0)
[2019-04-24 21:52] LABS: CALCIUM 10.1 mg/dL (8.5-10.1); CREATININE 1.3 mg/dL (0.7-1.3); GFR 57.1; POTASSIUM 4.2 mmol/L (3.5-5.1)
--- NOTE | 2019-04-25 00:14 | RAD ---
Indication:Shortness of breath TECHNIQUE:Portable AP chest X-ray COMPARISON: 07/13/2018 FINDINGS: Heart is normal in size. Lungs are hyperinflated with prominent interstitial opacities. No pneumothorax or pleural effusion. Visualized bony thorax within normal limits. IMPRESSION: COPD. Superimposed atypical/viral infection not ruled out. Electronically signed by: Anson Mosher DO (04/25/2019 12:12 AM) [facility]
[2019-04-25 00:19] VITALS: BP 117/72
[2019-04-25] MEDS ORDERED: VENTOLIN HFA18 GM INH (00:27)
--- NOTE | 2019-04-25 10:38 | EKG ---
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
== END 2019-04-25 01:15 | disposition home or self-care (01) ==
LOC: ER 20:38
DX: J44.1 Chronic obstructive pulmonary disease with (acute) exacerbation (principal); F10.20 Alcohol dependence, uncomplicated; Y90.7 Blood alcohol level of 200-239 mg/100 ml; Z59.0 Homelessness
CPT/HCPCS: 36415; 71045; 80048; 81001; 84484; 85025; 93005; 94640; 99285; G0480; J7030; J7512; J7613

== ENCOUNTER 2019-06-19 21:00 | Emergency (ER) | payer SELFPAY ==
[~2019-06-19] VITALS: Ht 175.3 cm; Wt 65.8 kg
[~2019-06-19 21:00] MED LIST changes: +VENTOLIN HFA18 GM INH
--- NOTE | 2019-06-19 21:13 | PHYS DOC ---
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 The patient has a history of COPD, and asthma. The patient got 2 albuterol treatments on ambulance is feeling somewhat better. Denies any pain. Review of Systems Review of Systems Constitutional: Denies fever or chills [] Eyes: Denies change in visual acuity, redness, or eye pain [] HENT: Denies nasal congestion or sore throat [] Respiratory: Reports cough and shortness of breath [] Cardiovascular: No additional information not addressed in HPI [] GI: Denies abdominal pain, nausea, vomiting, bloody stools or diarrhea [] : Denies dysuria or hematuria [] Musculoskeletal: Denies back pain or joint pain [] Integument: Denies rash or skin lesions [] Neurologic: Denies headache, focal weakness or sensory changes [] Endocrine: Denies polyuria or polydipsia [] Complete systems were reviewed and found to be within normal limits, except as documented in this note. Current Medications Current Medications Current Medications Medications (Trade) Dose Ordered Sig/Faiza Start Time Stop Time Status Last Admin Dose Admin Albuterol Sulfate (Ventolin Neb Soln) 10 mg 1X ONCE 06/19/19 21:15 06/19/19 21:16 DC 06/19/19 21:30 10 MG Methylprednisolone Sodium Succinate (SOLU-Medrol 125MG VIAL) 125 mg 1X ONCE 06/19/19 21:15 06/19/19 21:16 DC 06/19/19 21:51 125 MG Allergies Allergies Allergies Coded Allergies Type Severity Reaction Last Updated Verified No Known Drug Allergies 05/13/16 No Physical Exam Physical Exam Constitutional: Well developed, well nourished, no acute distress, non-toxic appearance. [] HENT: Normocephalic, atraumatic, bilateral external ears normal, oropharynx moist, no oral exudates, nose normal. [] Eyes: PERRLA, EOMI, conjunctiva normal, no discharge. [] Neck: Normal range of motion, no tenderness, supple, no stridor. [] Cardiovascular:Heart rate regular rhythm, no murmur [] Lungs & Thorax: Bilateral breath sounds diffuse wheezing on right all lobes, left clear with scattered rhonchi. Abdomen: Bowel sounds normal, soft, no tenderness, no masses, no pulsatile masses. [] Skin: Warm, dry, no erythema, no rash. [] Back: No tenderness, no CVA tenderness. [] Extremities: No tenderness, no cyanosis, no clubbing, ROM intact, no edema. [] Neurologic: Alert and oriented X 3, normal motor function, normal sensory function, no focal deficits noted. [] Psychologic: Affect normal, judgement normal, mood normal. [] Current Patient Data Vital Signs Vital Signs Date Time Temp Pulse Resp B/P (MAP) Pulse Ox O2 Delivery O2 Flow Rate FiO2 06/19/19 21:15 97.5 99 20 113/65 (81) 100 Room Air 97.5 Lab Values Laboratory Tests Test 06/19/19 20:21 White Blood Count 7.4 x10^3/uL (4.0-11.0) Red Blood Count 4.09 x10^6/uL (4.30-5.70) L Hemoglobin 13.4 g/dL (13.0-17.5) Hematocrit 39.8 % (39.0-53.0) Mean Corpuscular Volume 97 fL (79-100) Mean Corpuscular Hemoglobin 33 pg (25-35) Mean Corpuscular Hemoglobin Concent 34 g/dL (31-37) Red Cell Distribution Width 13.5 % (11.5-14.5) Platelet Count 252 x10^3/uL (140-400) Neutrophils (%) (Auto) 54 % (31-73) Lymphocytes (%) (Auto) 32 % (24-48) Monocytes (%) (Auto) 9 % (0-9) Eosinophils (%) (Auto) 4 % (0-3) H Basophils (%) (Auto) 1 % (0-3) Neutrophils # (Auto) 4.0 x10^3/uL (1.8-7.7) Lymphocytes # (Auto) 2.3 x10^3/uL (1.0-4.8) Monocytes # (Auto) 0.7 x10^3/uL (0.0-1.1) Eosinophils # (Auto) 0.3 x10^3/uL (0.0-0.7) Basophils # (Auto) 0.1 x10^3/uL (0.0-0.2) Sodium Level 138 mmol/L (136-145) Potassium Level 4.0 mmol/L (3.5-5.1) Chloride Level 99 mmol/L (98-107) Carbon Dioxide Level 27 mmol/L (21-32) Anion Gap 12 (6-14) Blood Urea Nitrogen 15 mg/dL (8-26) Creatinine 1.2 mg/dL (0.7-1.3) Estimated GFR (Cockcroft-Gault) 62.6 BUN/Creatinine Ratio 13 (6-20) Glucose Level 90 mg/dL (70-99) Calcium Level 10.1 mg/dL (8.5-10.1) Total Bilirubin 0.2 mg/dL (0.2-1.0) Aspartate Amino Transferase (AST) 29 U/L (15-37) Alanine Aminotransferase (ALT) 33 U/L (16-63) Alkaline Phosphatase 61 U/L (46-116) Troponin I Quantitative < 0.017 ng/mL (0.000-0.055) Total Protein 6.9 g/dL (6.4-8.2) Albumin 3.8 g/dL (3.4-5.0) Albumin/Globulin Ratio 1.2 (1.0-1.7) Laboratory Tests 06/19/19 20:21 Laboratory Tests 06/19/19 20:21 EKG EKG EKG interpreted by Dr. Fernandez Sinus Rhythm with rate of 96, No STEMI.[] Radiology/Procedures Radiology/Procedures Dr. Fernandez preliminary chest x-ray No obvious acute findings. Course & Med Decision Making Course & Med Decision Making Pertinent Labs and Imaging studies reviewed. (See chart for details) Will get labs, chest x-ray, give 1 hour long treatment, and steroids. Will also get EKG. Labs are unremarkable as well as imaging. Patient is improved after hour long treatment and is okay with trying outpatient treatment. Will send home with zithromycin pack, prednisone, and inhaler. Dragon Disclaimer Dragon Disclaimer This electronic medical record was generated, in whole or in part, using a voice recognition dictation system. Departure Departure Impression: Primary Impression: COPD exacerbation Disposition: HOME, SELF-CARE Condition: STABLE Referrals: NO PCP (PCP) Patient Instructions: Chronic Obstructive Pulmonary Disease Exacerbation Additional Instructions: Thank you for visiting [facility]. We appreciate you trusting us with your care. If any additional problems come up don't hesitate to return to visit us. Please follow up with your primary care provider so they can plan additional care if needed and know about the problem that you had. If symptoms worsen come back to the Emergency Department. Any concerning symptoms that start such as chest pain, shortness of air, weakness or numbness on one side of the body, running high fevers or any other concerning symptoms return to the ER. Please fill your medications at any pharmacy and follow the prescription instructions. You have been prescribed an antibiotic today to help fight your infection. Please take all of the antibiotic as directed. If after 48 hours the infection is not improving, please return for more care. If the infection worsens, return to ER for additional care. Scripts Prednisone (PREDNISONE) 20 Mg Tablet 2 TAB PO DAILY for 5 Days, #10 TAB Prov: AALIYAH DASH APRN 06/19/19 Azithromycin (ZITHROMAX) 500 Mg Tablet 1 TAB PO DAILY, #5 TAB Prov: AALIYAH DASH APRN 06/19/19 Albuterol Sulfate (PROAIR HFA INHALER) 8.5 Gm Hfa.aer.ad 1 PUFF INH PRN Q6HRS PRN for SHORTNESS OF BREATH, #1 INHALER 0 Refills Prov: AALIYAH DASH APRN 06/19/19 AALIYAH DASH APRN Jun 19, 2019 21:13
[2019-06-19] MEDS ORDERED: methylPREDNISolone SOD SUCC PF 125 MG/2 ML VIAL. IV ONE (21:15)
[2019-06-19] MEDS ORDERED: ALBUTEROL SULFATE 2.5 MG/3 ML NEBU. CONT NEB ONE (21:15)
[2019-06-19 21:35] LABS: BASO # 0.1 x10^3/uL (0.0-0.2); BASO % 1 % (0-3); EOS # 0.3 x10^3/uL (0.0-0.7); EOS % 4 % (0-3); HEMATOCRIT 39.8 % (39.0-53.0); HEMOGLOBIN 13.4 g/dL (13.0-17.5); LYMPH # 2.3 x10^3/uL (1.0-4.8); LYMPH % 32 % (24-48); MEAN CORPUSCULAR HEMOGLOBIN 33 pg (25-35); MEAN CORPUSCULAR HGB CONC 34 g/dL (31-37); MEAN CORPUSCULAR VOLUME 97 fL (79-100); MONO # 0.7 x10^3/uL (0.0-1.1); MONO % 9 % (0-9); NEUT % 54 % (31-73); PLATELET COUNT 252 x10^3/uL (140-400); RED BLOOD COUNT 4.09 x10^6/uL (4.30-5.70); RED CELL DISTRIBUTION WIDTH 13.5 % (11.5-14.5); WHITE BLOOD COUNT 7.4 x10^3/uL (4.0-11.0)
[2019-06-19 21:46] LABS: CALCIUM 10.1 mg/dL (8.5-10.1); CREATININE 1.2 mg/dL (0.7-1.3); GFR 62.6
[2019-06-19 21:51] LABS: ALBUMIN 3.8 g/dL (3.4-5.0); ALBUMIN/GLOBULIN RATIO 1.2 (1.0-1.7); TOTAL BILIRUBIN 0.2 mg/dL (0.2-1.0); TOTAL PROTEIN 6.9 g/dL (6.4-8.2)
[2019-06-19 22:34] VITALS: BP 117/77
[2019-06-19] MEDS ORDERED: PRED20TA PO (23:07)
[2019-06-19] MEDS ORDERED: AZIT500T PO (23:07)
[2019-06-19] MEDS ORDERED: ALBU2.5V8 INH (23:07)
--- NOTE | 2019-06-20 08:37 | RAD ---
AP chest. HISTORY: Short of breath AP view was taken of the chest. Lungs are free of acute infiltrates. Heart is normal in size. There is no pleural effusion. IMPRESSION: 1. No acute chest disease. Electronically signed by: Darryl Schultz MD (06/20/2019 8:35 AM) [facility]
--- NOTE | 2019-06-20 14:19 | EKG ---
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
== END 2019-06-19 23:35 | disposition home or self-care (01) ==
LOC: ER 21:00 → EEVIPCON 21:00 → ER 23:35
DX: J44.1 Chronic obstructive pulmonary disease with (acute) exacerbation (principal); J45.909 Unspecified asthma, uncomplicated
CPT/HCPCS: 36415; 71045; 80053; 84484; 85025; 93005; 94644; 96374; 99285; J2930; J7613

== ENCOUNTER 2019-08-29 21:05 | Inpatient (IN) | payer SELFPAY ==
[~2019-08-29] VITALS: Ht 180.3 cm; Wt 57.7 kg
[~2019-08-29 21:05] MED LIST changes: +AZIT500T PO
[2019-08-29] MEDS ORDERED: IPRATRPIUM/ALBUTEROL 0.5/2.5MG 3 ML NEBU. NEB ONE (21:30)
[2019-08-29] MEDS ORDERED: methylPREDNISolone SOD SUCC PF 125 MG/2 ML VIAL. IV ONE (21:30)
[2019-08-29 22:19] LABS: BASE EXCESS COOX 0 mmol/L (-3-3); CORRECTED PCO2 COOX 43 mmHg; CORRECTED PH COOX 7.39; CORRECTED PO2 COOX 73 mmHg; HCO3 COOX 25 mmol/L (21-28); METHEMOGLOBIN 0.4 % (0.0-1.9); OXYHEMOGLOBIN 90.8 %; SAT O2 COOX 94 % (92-99)
[2019-08-29 22:20] LABS: PCO2 COOX 44 mmHg (35-46); PO2 COOX 76 mmHg (75-108)
[2019-08-29 22:24] LABS: BASO # 0.1 x10^3/uL (0.0-0.2); BASO % 2 % (0-3); EOS # 0.4 x10^3/uL (0.0-0.7); EOS % 6 % (0-3); HEMATOCRIT 39.3 % (39.0-53.0); HEMOGLOBIN 13.3 g/dL (13.0-17.5); LYMPH # 1.9 x10^3/uL (1.0-4.8); LYMPH % 36 % (24-48); MEAN CORPUSCULAR HEMOGLOBIN 33 pg (25-35); MEAN CORPUSCULAR HGB CONC 34 g/dL (31-37); MEAN CORPUSCULAR VOLUME 98 fL (79-100); MONO # 0.7 x10^3/uL (0.0-1.1); MONO % 12 % (0-9); NEUT # 2.4 x10^3/uL (1.8-7.7); NEUT % 45 % (31-73); PLATELET COUNT 231 x10^3/uL (140-400); RED BLOOD COUNT 4.03 x10^6/uL (4.30-5.70); RED CELL DISTRIBUTION WIDTH 13.1 % (11.5-14.5); WHITE BLOOD COUNT 5.5 x10^3/uL (4.0-11.0)
[2019-08-29 22:33] LABS: CALCIUM 9.8 mg/dL (8.5-10.1); CREATININE 1.3 mg/dL (0.7-1.3); GFR 57.1; POTASSIUM 3.8 mmol/L (3.5-5.1)
[2019-08-29 22:40] LABS: ALBUMIN 3.5 g/dL (3.4-5.0); ALBUMIN/GLOBULIN RATIO 1.1 (1.0-1.7); TOTAL BILIRUBIN 0.1 mg/dL (0.2-1.0); TOTAL PROTEIN 6.8 g/dL (6.4-8.2)
--- NOTE | 2019-08-29 22:50 | PHYS DOC ---
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 States he does not have a nebulizer at home. Patient states he smokes a pack a day. Patient states he doesn't usually wear oxygen at home but here in the ED we have him on 2 L of action he is at 94%. Patient has a history of COPD and asthma and of intubation because of this. Patient complains of no pain at this time. Review of Systems Review of Systems Respiratory: Denies cough. +shortness of breath [] All other systems were reviewed and found to be within normal limits, except as documented in this note. Current Medications Current Medications Current Medications Medications (Trade) Dose Ordered Sig/Faiza Start Time Stop Time Status Last Admin Dose Admin Albuterol/ Ipratropium (Duoneb) 3 ml 1X ONCE 08/29/19 21:30 08/29/19 21:31 DC 08/29/19 21:47 3 ML Doxycycline Hyclate 100 mg/ Dextrose 100 ml @ 50 mls/hr 1X ONCE 08/29/19 23:45 08/30/19 01:44 08/29/19 23:53 50 MLS/HR Methylprednisolone Sodium Succinate (SOLU-Medrol 125MG VIAL) 125 mg 1X ONCE 08/29/19 21:30 08/29/19 21:31 DC 08/29/19 22:13 125 MG Allergies Allergies Allergies Coded Allergies Type Severity Reaction Last Updated Verified No Known Drug Allergies 05/13/16 No Physical Exam Physical Exam Constitutional: Well developed, well nourished, no acute distress, non-toxic appearance. [] HENT: Normocephalic, atraumatic, bilateral external ears normal, oropharynx moist, no oral exudates, nose normal. [] Eyes: PERRLA, EOMI, conjunctiva normal, no discharge. [] Neck: Normal range of motion, no tenderness, supple, no stridor. [] Cardiovascular:Heart rate regular rhythm, no murmur [] Lungs & Thorax: Bilateral breath sounds expiratory wheezes to auscultation [] Abdomen: Bowel sounds normal, soft, no tenderness, no masses, no pulsatile masses. [] Skin: Warm, dry, no erythema, no rash. Extremities: No tenderness, no cyanosis, no clubbing, ROM intact, no edema. [] Neurologic: Alert and oriented X 3, normal motor function, normal sensory function, no focal deficits noted. [] Psychologic: Affect normal, judgement normal, mood normal. [] Current Patient Data Vital Signs Vital Signs Date Time Temp Pulse Resp B/P (MAP) Pulse Ox O2 Delivery O2 Flow Rate FiO2 08/29/19 21:48 97 Nasal Cannula 2.0 08/29/19 21:05 97.5 100 15 107/67 (80) 97.5 Lab Values Laboratory Tests Test 08/29/19 21:23 08/29/19 22:13 O2 Saturation 94 % (92-99) Arterial Blood pH 7.38 (7.35-7.45) Arterial Blood pH (Temp corrected) 7.39 Arterial Blood pCO2 at Patient Temp 44 mmHg (35-46) Arterial Blood pCO2 (Temp correct) 43 mmHg Arterial Blood pO2 at Patient Temp 76 mmHg (75-108) Arterial Blood pO2 (Temp corrected) 73 mmHg Arterial Blood HCO3 25 mmol/L (21-28) Arterial Blood Base Excess 0 mmol/L (-3-3) Oxyhemoglobin 90.8 % Methemoglobin 0.4 % (0.0-1.9) Carbon Monoxide, Quantitative 3.3 % (0.0-1.9) H FiO2 28 White Blood Count 5.5 x10^3/uL (4.0-11.0) Red Blood Count 4.03 x10^6/uL (4.30-5.70) L Hemoglobin 13.3 g/dL (13.0-17.5) Hematocrit 39.3 % (39.0-53.0) Mean Corpuscular Volume 98 fL (79-100) Mean Corpuscular Hemoglobin 33 pg (25-35) Mean Corpuscular Hemoglobin Concent 34 g/dL (31-37) Red Cell Distribution Width 13.1 % (11.5-14.5) Platelet Count 231 x10^3/uL (140-400) Neutrophils (%) (Auto) 45 % (31-73) Lymphocytes (%) (Auto) 36 % (24-48) Monocytes (%) (Auto) 12 % (0-9) H Eosinophils (%) (Auto) 6 % (0-3) H Basophils (%) (Auto) 2 % (0-3) Neutrophils # (Auto) 2.4 x10^3/uL (1.8-7.7) Lymphocytes # (Auto) 1.9 x10^3/uL (1.0-4.8) Monocytes # (Auto) 0.7 x10^3/uL (0.0-1.1) Eosinophils # (Auto) 0.4 x10^3/uL (0.0-0.7) Basophils # (Auto) 0.1 x10^3/uL (0.0-0.2) Sodium Level 143 mmol/L (136-145) Potassium Level 3.8 mmol/L (3.5-5.1) Chloride Level 104 mmol/L (98-107) Carbon Dioxide Level 30 mmol/L (21-32) Anion Gap 9 (6-14) Blood Urea Nitrogen 16 mg/dL (8-26) Creatinine 1.3 mg/dL (0.7-1.3) Estimated GFR (Cockcroft-Gault) 57.1 BUN/Creatinine Ratio 12 (6-20) Glucose Level 79 mg/dL (70-99) Calcium Level 9.8 mg/dL (8.5-10.1) Total Bilirubin 0.1 mg/dL (0.2-1.0) L Aspartate Amino Transferase (AST) 24 U/L (15-37) Alanine Aminotransferase (ALT) 23 U/L (16-63) Alkaline Phosphatase 47 U/L (46-116) Troponin I Quantitative < 0.017 ng/mL (0.000-0.055) Total Protein 6.8 g/dL (6.4-8.2) Albumin 3.5 g/dL (3.4-5.0) Albumin/Globulin Ratio 1.1 (1.0-1.7) Laboratory Tests 08/29/19 22:13 Laboratory Tests 08/29/19 22:13 EKG EKG Sinus Rhythm and no STEMI[] Interpretation Time: [address] Bradford Radiology/Procedures Radiology/Procedures [] Course & Med Decision Making Course & Med Decision Making Patient is a 58 year old male who presents with today began having shortness of breath and states he is out of his inhaler for the last week. States he does not have a nebulizer at home. Patient states he smokes a pack a day. Patient states he doesn't usually wear oxygen at home but here in the ED we have him on 2 L of oxygen and he is at 94%. Patient has a history of COPD and asthma and of intubation because of this. Patient complains of no pain at this time. Alert and oriented. Speaks in full clear sentences. Expiratory wheezes throughout all lung bases. Skin pink warm and dry. Abdomen soft and nontender. Afebrile. No extremity swelling. PERRLA. Patient denies headache, dizziness, syncope, abdominal pain, nausea, vomiting, diarrhea, recent illness, chest pain, numbness or tingling, visual changes. Patient was 89% on room air. Patient is given a breathing treatment and Solu-Medrol in the ED. Patient states he is feeling better. X-ray is read by Dr. Bradford and states no obvious acute findings. Patient is admitted for a COPD exacerbation. I have given Report to Dr Bradford who is going to give [place] report in the morning. Dragon Disclaimer Dragon Disclaimer This electronic medical record was generated, in whole or in part, using a voice recognition dictation system. Departure Departure Impression: Primary Impression: COPD exacerbation Disposition: ADMITTED INPATIENT Admitting Physician: OSMIN Condition: STABLE Referrals: NO PCP (PCP) ELENITA POLLOCK APRN Aug 29, 2019 22:50
[2019-08-29] MEDS ORDERED: DOXYCYCLINE HYCLATE 100 MG in IV DEXTROSE 5% 100ML 100 ML IV ONE (23:45)
[2019-08-30] MEDS ORDERED: fentaNYL PF VIAL 100 MCG/2 ML VIAL IV PRN
[2019-08-30 01:00] VITALS: BP 119/73
[2019-08-30 03:05] VITALS: BP 136/65
[2019-08-30 07:00] VITALS: BP 135/85
[2019-08-30] MEDS: IPRATRPIUM/ALBUTEROL 0.5/2.5MG 3 ML NEBU. NEB SCH ×2 (07:12→11:07)
[2019-08-30] MEDS ORDERED: FLU VAX QS 2019-20 (36MOS+)/PF 0.5 ML SYRINGE. VAX IM ONE (07:15)
--- NOTE | 2019-08-30 07:26 | RAD ---
Indication:Shortness of breath TECHNIQUE:Portable AP chest X-ray COMPARISON: 06/19/2019 FINDINGS: Heart is normal in size. Mild aortic knob calcifications suggesting systemic arterial hypertension. Lungs are clear. No pneumothorax or pleural effusion. Visualized bony thorax within normal limits. IMPRESSION: No acute pulmonary process. Electronically signed by: Anson Mosher DO (08/30/2019 7:23 AM) [id number]
--- NOTE | 2019-08-30 08:49 | PDOC1 ---
History and Physical Date of Admission Date of Admission DATE: 08/30/19 TIME: 08:49 Identification/Chief Complaint Chief Complaint SEEN IN ER , 58 year old male who presents with 08/29 began having shortness of breath and states he is out of his inhaler for the last week. States he does not have a nebulizer at home. Patient states he smokes a pack a day. Patient states he doesn't usually wear oxygen at home but , in the ED on 2 L of action he is at 94%. 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 Alcohol Use: Heavy Drug Use: None fhx copd Cardiovascular: HTN Pulmonary: Bronchitis, COPD GI: Gastritis Heme/Onc: No pertinent hx Hepatobiliary: No pertinent hx Psych: No pertinent hx, Addictions Musculoskeletal: Osteoarthritis Rheumatologic: No pertinent hx Infectious disease: No pertinent hx Renal/: No pertinent hx Endocrine: No pertinent hx Past Surgical History Past Surgical History: Other Family History Family History: High Cholestrol, Hypertension, Family History Unknown Social History Smoke: 1 pack per day ALCOHOL: occassional Drugs: None Current Problem List Problem List Problems Medical Problems: (1) COPD exacerbation Status: Acute Current Medications Current Medications Current Medications Albuterol/ Ipratropium (Duoneb) 3 ml 1X ONCE NEB Last administered on 08/29/19at 21:47; Start 08/29/19 at 21:30; Stop 08/29/19 at 21:31; Status DC Methylprednisolone Sodium Succinate (SOLU-Medrol 125MG VIAL) 125 mg 1X ONCE IV Last administered on 08/29/19at 22:13; Start 08/29/19 at 21:30; Stop 08/29/19 at 21:31; Status DC Doxycycline Hyclate 100 mg/ Dextrose 100 ml @ 50 mls/hr 1X ONCE IV Last administered on 08/29/19at 23:53; Start 08/29/19 at 23:45; Stop 08/30/19 at 01:44; Status DC Ondansetron HCl (Zofran) 4 mg PRN Q8HRS PRN IV NAUSEA/VOMITING; Start 08/30/19 at 00:00; Stop 08/30/19 at 23:59 Fentanyl Citrate (Fentanyl 2ml Vial) 50 mcg PRN Q1HR PRN IV PAIN; Start 08/30/19 at 00:00; Stop 08/30/19 at 23:59 Acetaminophen (Tylenol) 650 mg PRN Q4HRS PRN PO FEVER; Start 08/30/19 at 00:00; Stop 08/30/19 at 23:59 Albuterol/ Ipratropium (Duoneb) 3 ml RTQID NEB Last administered on 08/30/19at 07:12; Start 08/30/19 at 08:00; Stop 08/31/19 at 07:59 Influenza Virus Vaccine Quadrival (Afluria Quad 2019-20 (3yr Up) Syringe) 0.5 ml ONCE ONCE VAX IM ; Start 08/30/19 at 07:15; Stop 08/30/19 at 07:19; Status DC Active Scripts Active Prednisone 20 Mg Tablet 2 Tab PO DAILY 5 Days Zithromax (Azithromycin) 500 Mg Tablet 1 Tab PO DAILY Proair Hfa Inhaler (Albuterol Sulfate) 8.5 Gm Hfa.aer.ad 1 Puff INH PRN Q6HRS PRN Ventolin Hfa Inhaler (Albuterol Sulfate) 18 Gm Hfa.aer.ad 1-2 Puff INH Q4HRS Cipro (Ciprofloxacin Hcl) 500 Mg Tablet 1 Tab PO BID Symbicort 80-4.5 Mcg Inhaler (Budesonide/Formoterol Fumarate) 10.2 Gm Hfa.aer.ad 1 Puff IH BID Prednisone (Prednisone) 10 Mg Tablet 10 Mg PO UD Take 5 tablets by mouth daily for 2 days, then take 4 tablets by mouth daily for 2 days, then take 3 tablets by mouth daily for 2 days, then take 2 tablets by mouth daily for 2 days, then take 1 tablets by mouth daily for 2 days, then stop. Proair Hfa Inhaler (Albuterol Sulfate) 8.5 Gm Hfa.aer.ad 1 Puff INH PRN Q6HRS PRN Proair Hfa (Albuterol Sulfate) 8.5 Gm Hfa.aer.ad 8.5 Gm IH Q4HRS PRN 5 Days Proair Hfa Inhaler (Albuterol Sulfate) 8.5 Gm Hfa.aer.ad 1 Puff INH PRN Q6HRS PRN 30 Days Proair Respiclick (Albuterol Sulfate) 90 Mcg Aer.pow.ba 1 Puff IH PRN Q6HRS PRN Valtrex (Valacyclovir Hcl) 1,000 Mg Tablet 1 Tab PO TID Allergies Allergies: Coded Allergies: No Known Drug Allergies (Unverified , 05/13/16) ROS Review of System Review of Systems Review of Systems Respiratory: Denies cough. +shortness of breath [] 14 pt systems were reviewed and found to be within normal limits, except as documented ALLERGY AND IMMUNOLOGY: No: Hives, Insect Bite Sensitivity, Itchy/Watery Eyes, Nasal Congestion, Post Nasal Drip, Seasonal Allergies, Other Respiratory: YES: Cough, Shortness of breath, SOB with excertion, Sputum Changes Cardiovascular: No Chest Pain, No Palpitations, No Orthopnea, No Paroxysmal Noc. Dyspnea, No Edema, No Lt Headedness, No Other Neurological: No Behavorial Changes, No Bowel/Bladder ControlChng, No Confusion, No Dizziness, No Gait Disturbance, No Headaches, No Impaired Coord/balance, No Memory Loss, No Numbness/Tingling, No Seizures, No Speech Problems, No Tremors, No Visual Changes, No Weakness, No Other Physical Exam Physical Exam Physical Exam Physical Exam Constitutional: Well developed, well nourished, no acute distress, non-toxic appearance. [] HENT: Normocephalic, atraumatic, bilateral external ears normal, oropharynx moist, no oral exudates, nose normal. [] Eyes: PERRLA, EOMI, conjunctiva normal, no discharge. [] Neck: Normal range of motion, no tenderness, supple, no stridor. [] Cardiovascular:Heart rate regular rhythm, no murmur [] Lungs & Thorax: Bilateral breath sounds expiratory wheezes to auscultation [] Abdomen: Bowel sounds normal, soft, no tenderness, no masses, no pulsatile masses. [] Skin: Warm, dry, no erythema, no rash. Extremities: No tenderness, no cyanosis, no clubbing, ROM intact, no edema. [] Neurologic: Alert and oriented X 3, normal motor function, normal sensory function, no focal deficits noted. [] Psychologic: Affect normal, judgement normal, mood normal. [] General: Alert, Oriented X3, Cooperative Lungs: Normal air movement, Other (mild exp wheezing) Heart: no thrills Abdomen: Normal bowel sounds, Soft PELVIC: Examination not indicated Extremities: No cyanosis Neuro: Normal speech, Cranial nerves 3-12 NL Psych/Mental Status: Mental status NL Vitals Vitals Vital Signs Date Time Temp Pulse Resp B/P (MAP) Pulse Ox O2 Delivery O2 Flow Rate FiO2 08/30/19 07:14 94 Room Air 08/30/19 07:00 98.3 86 20 135/85 (102) 98.3 08/30/19 03:05 2.0 Labs Labs Laboratory Tests Test 08/29/19 21:23 08/29/19 22:13 O2 Saturation 94 % (92-99) Arterial Blood pH 7.38 (7.35-7.45) Arterial Blood pH (Temp corrected) 7.39 Arterial Blood pCO2 at Patient Temp 44 mmHg (35-46) Arterial Blood pCO2 (Temp correct) 43 mmHg Arterial Blood pO2 at Patient Temp 76 mmHg (75-108) Arterial Blood pO2 (Temp corrected) 73 mmHg Arterial Blood HCO3 25 mmol/L (21-28) Arterial Blood Base Excess 0 mmol/L (-3-3) Oxyhemoglobin 90.8 % Methemoglobin 0.4 % (0.0-1.9) Carbon Monoxide, Quantitative 3.3 % (0.0-1.9) FiO2 28 White Blood Count 5.5 x10^3/uL (4.0-11.0) Red Blood Count 4.03 x10^6/uL (4.30-5.70) Hemoglobin 13.3 g/dL (13.0-17.5) Hematocrit 39.3 % (39.0-53.0) Mean Corpuscular Volume 98 fL (79-100) Mean Corpuscular Hemoglobin 33 pg (25-35) Mean Corpuscular Hemoglobin Concent 34 g/dL (31-37) Red Cell Distribution Width 13.1 % (11.5-14.5) Platelet Count 231 x10^3/uL (140-400) Neutrophils (%) (Auto) 45 % (31-73) Lymphocytes (%) (Auto) 36 % (24-48) Monocytes (%) (Auto) 12 % (0-9) Eosinophils (%) (Auto) 6 % (0-3) Basophils (%) (Auto) 2 % (0-3) Neutrophils # (Auto) 2.4 x10^3/uL (1.8-7.7) Lymphocytes # (Auto) 1.9 x10^3/uL (1.0-4.8) Monocytes # (Auto) 0.7 x10^3/uL (0.0-1.1) Eosinophils # (Auto) 0.4 x10^3/uL (0.0-0.7) Basophils # (Auto) 0.1 x10^3/uL (0.0-0.2) Sodium Level 143 mmol/L (136-145) Potassium Level 3.8 mmol/L (3.5-5.1) Chloride Level 104 mmol/L (98-107) Carbon Dioxide Level 30 mmol/L (21-32) Anion Gap 9 (6-14) Blood Urea Nitrogen 16 mg/dL (8-26) Creatinine 1.3 mg/dL (0.7-1.3) Estimated GFR (Cockcroft-Gault) 57.1 BUN/Creatinine Ratio 12 (6-20) Glucose Level 79 mg/dL (70-99) Calcium Level 9.8 mg/dL (8.5-10.1) Total Bilirubin 0.1 mg/dL (0.2-1.0) Aspartate Amino Transf (AST/SGOT) 24 U/L (15-37) Alanine Aminotransferase (ALT/SGPT) 23 U/L (16-63) Alkaline Phosphatase 47 U/L (46-116) Troponin I Quantitative < 0.017 ng/mL (0.000-0.055) Total Protein 6.8 g/dL (6.4-8.2) Albumin 3.5 g/dL (3.4-5.0) Albumin/Globulin Ratio 1.1 (1.0-1.7) Laboratory Tests Test 08/29/19 21:23 08/29/19 22:13 O2 Saturation 94 % (92-99) Arterial Blood pH 7.38 (7.35-7.45) Arterial Blood pH (Temp corrected) 7.39 Arterial Blood pCO2 at Patient Temp 44 mmHg (35-46) Arterial Blood pCO2 (Temp correct) 43 mmHg Arterial Blood pO2 at Patient Temp 76 mmHg (75-108) Arterial Blood pO2 (Temp corrected) 73 mmHg Arterial Blood HCO3 25 mmol/L (21-28) Arterial Blood Base Excess 0 mmol/L (-3-3) Oxyhemoglobin 90.8 % Methemoglobin 0.4 % (0.0-1.9) Carbon Monoxide, Quantitative 3.3 % (0.0-1.9) FiO2 28 White Blood Count 5.5 x10^3/uL (4.0-11.0) Red Blood Count 4.03 x10^6/uL (4.30-5.70) Hemoglobin 13.3 g/dL (13.0-17.5) Hematocrit 39.3 % (39.0-53.0) Mean Corpuscular Volume 98 fL (79-100) Mean Corpuscular Hemoglobin 33 pg (25-35) Mean Corpuscular Hemoglobin Concent 34 g/dL (31-37) Red Cell Distribution Width 13.1 % (11.5-14.5) Platelet Count 231 x10^3/uL (140-400) Neutrophils (%) (Auto) 45 % (31-73) Lymphocytes (%) (Auto) 36 % (24-48) Monocytes (%) (Auto) 12 % (0-9) Eosinophils (%) (Auto) 6 % (0-3) Basophils (%) (Auto) 2 % (0-3) Neutrophils # (Auto) 2.4 x10^3/uL (1.8-7.7) Lymphocytes # (Auto) 1.9 x10^3/uL (1.0-4.8) Monocytes # (Auto) 0.7 x10^3/uL (0.0-1.1) Eosinophils # (Auto) 0.4 x10^3/uL (0.0-0.7) Basophils # (Auto) 0.1 x10^3/uL (0.0-0.2) Sodium Level 143 mmol/L (136-145) Potassium Level 3.8 mmol/L (3.5-5.1) Chloride Level 104 mmol/L (98-107) Carbon Dioxide Level 30 mmol/L (21-32) Anion Gap 9 (6-14) Blood Urea Nitrogen 16 mg/dL (8-26) Creatinine 1.3 mg/dL (0.7-1.3) Estimated GFR (Cockcroft-Gault) 57.1 BUN/Creatinine Ratio 12 (6-20) Glucose Level 79 mg/dL (70-99) Calcium Level 9.8 mg/dL (8.5-10.1) Total Bilirubin 0.1 mg/dL (0.2-1.0) Aspartate Amino Transf (AST/SGOT) 24 U/L (15-37) Alanine Aminotransferase (ALT/SGPT) 23 U/L (16-63) Alkaline Phosphatase 47 U/L (46-116) Troponin I Quantitative < 0.017 ng/mL (0.000-0.055) Total Protein 6.8 g/dL (6.4-8.2) Albumin 3.5 g/dL (3.4-5.0) Albumin/Globulin Ratio 1.1 (1.0-1.7) Images Images Indication:Shortness of breath TECHNIQUE:Portable AP chest X-ray COMPARISON: 06/19/2019 FINDINGS: Heart is normal in size. Mild aortic knob calcifications suggesting systemic arterial hypertension. Lungs are clear. No pneumothorax or pleural effusion. Visualized bony thorax within normal limits. IMPRESSION: No acute pulmonary process. Electronically signed by: Anson Agee DO (08/30/2019 7:23 AM) [facility] DICTATED and SIGNED BY: ANSON AGEE DO DATE: 08/30/19 0723 VTE Prophylaxis Ordered VTE Prophylaxis Devices: No VTE Pharmacological Prophylaxi: Yes Assessment/Plan Assessment/Plan impression acute exacerbation of chronic obstructive pulmonary disease smoker for past 31 years and continues to smoke cigarettes. POSSIBLE CO exposure, suspect level of 3% is related to his smoking hx Acute hypoxic respiratory failure with COPD/Asthma exacerbation, improved HTN Bronchitis, COPD Gastritis hx tobaccoism, ongoing plan admit tele consult pulmonary check home and cars for CO leaks now before returning home dvt prophylaxis 6 min walk before d/c today o2 prn steroid taper dvt prophylaxis smoking cessation education provided 61 min pt exam, chart review, > 50% of time spent with exam, chart review, pt care coordination KENNEY OAKLEY MD Aug 30, 2019 08:49
--- NOTE | 2019-08-30 10:13 | CONS ---
DATE OF CONSULTATION: PULMONARY CONSULTATION ATTENDING PHYSICIAN: Anup Jack MD REASON FOR CONSULTATION: Dyspnea. HISTORY OF PRESENT ILLNESS: The patient is 58 years old who has been a smoker since 31 years. The patient smoked 1 pack per day. He came to the hospital with shortness of breath. The patient has a cough which has been productive of white sputum. No fever, no chills, no chest pains. No history of deep vein thrombosis or pulmonary embolism. His chest x-ray did not reveal any definite infiltrate. I have been asked to see him for further evaluation. He wants to go home today. PAST MEDICAL HISTORY: COPD with ongoing tobaccoism, prior history of intubation. PAST SURGICAL HISTORY: Hernia and left toe amputation. ALLERGIES: None. MEDICATIONS: Reviewed as listed in the MRAD. REVIEW OF SYSTEMS: As discussed in my history of present illness, otherwise noncontributory. SOCIAL HISTORY: Smoker for 31 years and continues to smoke cigarettes. FAMILY HISTORY: Noncontributory to lungs. PHYSICAL EXAMINATION: VITAL SIGNS: Reviewed. Pulse ox 94% on room air, afebrile. NECK: Supple. LUNGS: With faint wheezes. CARDIOVASCULAR: Regular rate. ABDOMEN: Soft. EXTREMITIES: With no pitting edema. LABORATORY DATA: Reviewed. ABGs with a pH of 7.38, pCO2 of 44 and a pO2 of 76 on 28% FIO2. IMPRESSION: Dyspnea secondary to acute exacerbation of chronic obstructive pulmonary disease in a patient who has been a smoker for past 31 years and continues to smoke cigarettes. No evidence of pneumonia on the chest x-ray. RECOMMENDATIONS: 1. Smoking cessation counseling provided. 2. The patient wants to go home. He could be discharged home on inhalers as well as a steroid taper. 3. I would recommend PFTs as an outpatient. 4. Discussed with RN. KATHERIN SUN MD DR: ISAEL/fox JOB#: [id number] / [id number]
[2019-08-30 11:00] VITALS: BP 129/81
--- NOTE | 2019-08-30 11:15 | EKG ---
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
[2019-08-30] MEDS ORDERED: ALBUTEROL SULFATE 2.5 MG/3 ML NEBU. INH PRN (12:15)
[2019-08-30] MEDS ORDERED: cloNIDine HCL 0.1 MG TABLET PO PRN (12:30)
[2019-08-30] MEDS ORDERED: DOCUSATE SODIUM 100 MG CAPSULE. PO PRN (12:30)
[2019-08-30] MEDS ORDERED: LORazepam 0.5 MG TABLET PO PRN (12:30)
[2019-08-30] MEDS ORDERED: MAG HYDROX/ALUMINUM HYD/SIMETH 30 ML ORAL.SUSP PO PRN (12:30)
[2019-08-30] MEDS ORDERED: 0.9 % SODIUM CHLORIDE 10 ML DISP.SYRIN. IV PRN (12:30)
[2019-08-30] MEDS ORDERED: IPRATRPIUM/ALBUTEROL 0.5/2.5MG 3 ML NEBU. NEB SCH (12:30)
[2019-08-30] MEDS ORDERED: ONDANSETRON PF 4 MG/2 ML VIAL. IV PRN ×2 (12:30)
[2019-08-30] MEDS ORDERED: guaiFENesin ORAL 200 MG/10 ML LIQUID. PO PRN (12:30)
[2019-08-30] MEDS ORDERED: ACETAMINOPHEN 325 MG TABLET. PO PRN ×2 (12:30)
--- NOTE | 2019-08-30 13:21 | PDOC3 ---
Discharge Summary Date of Admission: Aug 29, 2019 Date of Discharge: Aug 30, 2019 Follow-Up: 3-5 days Admitting Diagnosis comment: VTE Prophylaxis Ordered VTE Prophylaxis Devices: No VTE Pharmacological Prophylaxi: Yes DISCHARGE DX Assessment/Plan impression acute exacerbation of chronic obstructive pulmonary disease smoker for past 31 years and continues to smoke cigarettes. POSSIBLE CO exposure, suspect level of 3% is related to his smoking hx Acute hypoxic respiratory failure with COPD/Asthma exacerbation, improved HTN Bronchitis, COPD Gastritis hx tobaccoism, ongoing plan admit tele consult pulmonary check home and cars for CO leaks now before returning home dvt prophylaxis 6 min walk before d/c today o2 prn steroid taper dvt prophylaxis smoking cessation education provided 61 min pt exam, chart review, D/C PLANNING > 50% of time spent with exam, chart review, pt care coordination FINAL DIAGNOSIS Problems Medical Problems: (1) COPD exacerbation Status: Acute Brief Hospital Course Mr. Kapoor is a 58 old [sex] who presented with [ ] CONDITION AT DISCHARGE: Improved Discharge Medications Current Medications Albuterol/ Ipratropium (Duoneb) 3 ml 1X ONCE NEB Last administered on 08/29/19at 21:47; Start 08/29/19 at 21:30; Stop 08/29/19 at 21:31; Status DC Methylprednisolone Sodium Succinate (SOLU-Medrol 125MG VIAL) 125 mg 1X ONCE IV Last administered on 08/29/19at 22:13; Start 08/29/19 at 21:30; Stop 08/29/19 at 21:31; Status DC Doxycycline Hyclate 100 mg/ Dextrose 100 ml @ 50 mls/hr 1X ONCE IV Last administered on 08/29/19at 23:53; Start 08/29/19 at 23:45; Stop 08/30/19 at 01:44; Status DC Ondansetron HCl (Zofran) 4 mg PRN Q8HRS PRN IV NAUSEA/VOMITING; Start 08/30/19 at 00:00; Stop 08/30/19 at 23:59 Fentanyl Citrate (Fentanyl 2ml Vial) 50 mcg PRN Q1HR PRN IV PAIN; Start 08/30/19 at 00:00; Stop 08/30/19 at 23:59 Acetaminophen (Tylenol) 650 mg PRN Q4HRS PRN PO FEVER; Start 08/30/19 at 00:00; Stop 08/30/19 at 23:59 Albuterol/ Ipratropium (Duoneb) 3 ml RTQID NEB Last administered on 08/30/19at 11:07; Start 08/30/19 at 08:00; Stop 08/31/19 at 07:59 Influenza Virus Vaccine Quadrival (Afluria Quad 2019-20 (3yr Up) Syringe) 0.5 ml ONCE ONCE VAX IM ; Start 08/30/19 at 07:15; Stop 08/30/19 at 07:19; Status DC Albuterol Sulfate (Ventolin Neb Soln) 2.5 mg PRN Q6HRS PRN INH SHORTNESS OF BREATH; Start 08/30/19 at 12:15 Prednisone (Prednisone) 40 mg DAILY PO ; Start 08/31/19 at 09:00 Non-Formulary Medication (Azithromycin (Zithromax)) 1 tab DAILY PO ; Start 08/31/19 at 09:00; Status UNV Non-Formulary Medication (Budesonide/ Formoterol Fumarate (Symbicort 80-4.5 Mcg Inhaler)) 1 puff BID IH ; Start 08/30/19 at 21:00; Status UNV Sodium Chloride (Normal Saline Flush) 3 ml QSHIFT PRN IV AFTER MEDS AND BLOOD DRAWS; Start 08/30/19 at 12:30 Ondansetron HCl (Zofran) 4 mg PRN Q4HRS PRN IV NAUSEA/VOMITING; Start 08/30/19 at 12:30 Acetaminophen (Tylenol) 650 mg PRN Q4HRS PRN PO TEMP OVER 100.4F OR MILD PAIN; Start 08/30/19 at 12:30 Al Hydroxide/Mg Hydroxide (Mylanta Plus Xs) 30 ml PRN DAILY PRN PO HEARTBURN / GAS; Start 08/30/19 at 12:30 Clonidine HCl (Catapres) 0.1 mg PRN Q6HRS PRN PO SBP>160 OR DBP>90; Start 08/30/19 at 12:30 Docusate Sodium (Colace) 100 mg PRN BID PRN PO CONSTIPATION; Start 08/30/19 at 12:30 Albuterol/ Ipratropium (Duoneb) 3 ml Q4H NEB ; Start 08/30/19 at 12:30; Status UNV Guaifenesin (Robitussin) 200 mg PRN Q4HRS PRN PO COUGH; Start 08/30/19 at 12:30 Lorazepam (Ativan) 0.5 mg PRN Q4HRS PRN PO ANXIETY / AGITATION; Start 08/30/19 at 12:30 Enoxaparin Sodium (Lovenox 40mg Syringe) 40 mg DAILY SQ ; Start 08/31/19 at 09:00 Budesonide (Pulmicort) 0.5 mg RTBID NEB ; Start 08/30/19 at 20:00 Active Scripts Active Prednisone 20 Mg Tablet 2 Tab PO DAILY 5 Days Zithromax (Azithromycin) 500 Mg Tablet 1 Tab PO DAILY Proair Hfa Inhaler (Albuterol Sulfate) 8.5 Gm Hfa.aer.ad 1 Puff INH PRN Q6HRS PRN Ventolin Hfa Inhaler (Albuterol Sulfate) 18 Gm Hfa.aer.ad 1-2 Puff INH Q4HRS Cipro (Ciprofloxacin Hcl) 500 Mg Tablet 1 Tab PO BID Symbicort 80-4.5 Mcg Inhaler (Budesonide/Formoterol Fumarate) 10.2 Gm Hfa.aer.ad 1 Puff IH BID Prednisone (Prednisone) 10 Mg Tablet 10 Mg PO UD Take 5 tablets by mouth daily for 2 days, then take 4 tablets by mouth daily for 2 days, then take 3 tablets by mouth daily for 2 days, then take 2 tablets by mouth daily for 2 days, then take 1 tablets by mouth daily for 2 days, then stop. Proair Hfa Inhaler (Albuterol Sulfate) 8.5 Gm Hfa.aer.ad 1 Puff INH PRN Q6HRS PRN Proair Hfa (Albuterol Sulfate) 8.5 Gm Hfa.aer.ad 8.5 Gm IH Q4HRS PRN 5 Days Proair Hfa Inhaler (Albuterol Sulfate) 8.5 Gm Hfa.aer.ad 1 Puff INH PRN Q6HRS PRN 30 Days Proair Respiclick (Albuterol Sulfate) 90 Mcg Aer.pow.ba 1 Puff IH PRN Q6HRS PRN Valtrex (Valacyclovir Hcl) 1,000 Mg Tablet 1 Tab PO TID Vital Signs Vital Signs Date Time Temp Pulse Resp B/P (MAP) Pulse Ox O2 Delivery O2 Flow Rate FiO2 08/30/19 11:07 92 Room Air 08/30/19 11:00 98.3 88 24 129/81 (97) 2.0 98.3 Labs Laboratory Tests Test 08/29/19 21:23 08/29/19 22:13 O2 Saturation 94 % (92-99) Arterial Blood pH 7.38 (7.35-7.45) Arterial Blood pH (Temp corrected) 7.39 Arterial Blood pCO2 at Patient Temp 44 mmHg (35-46) Arterial Blood pCO2 (Temp correct) 43 mmHg Arterial Blood pO2 at Patient Temp 76 mmHg (75-108) Arterial Blood pO2 (Temp corrected) 73 mmHg Arterial Blood HCO3 25 mmol/L (21-28) Arterial Blood Base Excess 0 mmol/L (-3-3) Oxyhemoglobin 90.8 % Methemoglobin 0.4 % (0.0-1.9) Carbon Monoxide, Quantitative 3.3 % (0.0-1.9) FiO2 28 White Blood Count 5.5 x10^3/uL (4.0-11.0) Red Blood Count 4.03 x10^6/uL (4.30-5.70) Hemoglobin 13.3 g/dL (13.0-17.5) Hematocrit 39.3 % (39.0-53.0) Mean Corpuscular Volume 98 fL (79-100) Mean Corpuscular Hemoglobin 33 pg (25-35) Mean Corpuscular Hemoglobin Concent 34 g/dL (31-37) Red Cell Distribution Width 13.1 % (11.5-14.5) Platelet Count 231 x10^3/uL (140-400) Neutrophils (%) (Auto) 45 % (31-73) Lymphocytes (%) (Auto) 36 % (24-48) Monocytes (%) (Auto) 12 % (0-9) Eosinophils (%) (Auto) 6 % (0-3) Basophils (%) (Auto) 2 % (0-3) Neutrophils # (Auto) 2.4 x10^3/uL (1.8-7.7) Lymphocytes # (Auto) 1.9 x10^3/uL (1.0-4.8) Monocytes # (Auto) 0.7 x10^3/uL (0.0-1.1) Eosinophils # (Auto) 0.4 x10^3/uL (0.0-0.7) Basophils # (Auto) 0.1 x10^3/uL (0.0-0.2) Sodium Level 143 mmol/L (136-145) Potassium Level 3.8 mmol/L (3.5-5.1) Chloride Level 104 mmol/L (98-107) Carbon Dioxide Level 30 mmol/L (21-32) Anion Gap 9 (6-14) Blood Urea Nitrogen 16 mg/dL (8-26) Creatinine 1.3 mg/dL (0.7-1.3) Estimated GFR (Cockcroft-Gault) 57.1 BUN/Creatinine Ratio 12 (6-20) Glucose Level 79 mg/dL (70-99) Calcium Level 9.8 mg/dL (8.5-10.1) Total Bilirubin 0.1 mg/dL (0.2-1.0) Aspartate Amino Transf (AST/SGOT) 24 U/L (15-37) Alanine Aminotransferase (ALT/SGPT) 23 U/L (16-63) Alkaline Phosphatase 47 U/L (46-116) Troponin I Quantitative < 0.017 ng/mL (0.000-0.055) Total Protein 6.8 g/dL (6.4-8.2) Albumin 3.5 g/dL (3.4-5.0) Albumin/Globulin Ratio 1.1 (1.0-1.7) Laboratory Tests Test 08/29/19 21:23 08/29/19 22:13 O2 Saturation 94 % (92-99) Arterial Blood pH 7.38 (7.35-7.45) Arterial Blood pH (Temp corrected) 7.39 Arterial Blood pCO2 at Patient Temp 44 mmHg (35-46) Arterial Blood pCO2 (Temp correct) 43 mmHg Arterial Blood pO2 at Patient Temp 76 mmHg (75-108) Arterial Blood pO2 (Temp corrected) 73 mmHg Arterial Blood HCO3 25 mmol/L (21-28) Arterial Blood Base Excess 0 mmol/L (-3-3) Oxyhemoglobin 90.8 % Methemoglobin 0.4 % (0.0-1.9) Carbon Monoxide, Quantitative 3.3 % (0.0-1.9) FiO2 28 White Blood Count 5.5 x10^3/uL (4.0-11.0) Red Blood Count 4.03 x10^6/uL (4.30-5.70) Hemoglobin 13.3 g/dL (13.0-17.5) Hematocrit 39.3 % (39.0-53.0) Mean Corpuscular Volume 98 fL (79-100) Mean Corpuscular Hemoglobin 33 pg (25-35) Mean Corpuscular Hemoglobin Concent 34 g/dL (31-37) Red Cell Distribution Width 13.1 % (11.5-14.5) Platelet Count 231 x10^3/uL (140-400) Neutrophils (%) (Auto) 45 % (31-73) Lymphocytes (%) (Auto) 36 % (24-48) Monocytes (%) (Auto) 12 % (0-9) Eosinophils (%) (Auto) 6 % (0-3) Basophils (%) (Auto) 2 % (0-3) Neutrophils # (Auto) 2.4 x10^3/uL (1.8-7.7) Lymphocytes # (Auto) 1.9 x10^3/uL (1.0-4.8) Monocytes # (Auto) 0.7 x10^3/uL (0.0-1.1) Eosinophils # (Auto) 0.4 x10^3/uL (0.0-0.7) Basophils # (Auto) 0.1 x10^3/uL (0.0-0.2) Sodium Level 143 mmol/L (136-145) Potassium Level 3.8 mmol/L (3.5-5.1) Chloride Level 104 mmol/L (98-107) Carbon Dioxide Level 30 mmol/L (21-32) Anion Gap 9 (6-14) Blood Urea Nitrogen 16 mg/dL (8-26) Creatinine 1.3 mg/dL (0.7-1.3) Estimated GFR (Cockcroft-Gault) 57.1 BUN/Creatinine Ratio 12 (6-20) Glucose Level 79 mg/dL (70-99) Calcium Level 9.8 mg/dL (8.5-10.1) Total Bilirubin 0.1 mg/dL (0.2-1.0) Aspartate Amino Transf (AST/SGOT) 24 U/L (15-37) Alanine Aminotransferase (ALT/SGPT) 23 U/L (16-63) Alkaline Phosphatase 47 U/L (46-116) Troponin I Quantitative < 0.017 ng/mL (0.000-0.055) Total Protein 6.8 g/dL (6.4-8.2) Albumin 3.5 g/dL (3.4-5.0) Albumin/Globulin Ratio 1.1 (1.0-1.7) Allergies Allergies Coded Allergies Type Severity Reaction Last Updated Verified No Known Drug Allergies 05/13/16 No Disposition/Orders: D/C to Home KENNEY OAKLEY MD Aug 30, 2019 13:20
--- NOTE | 2019-08-30 13:26 | DISCH ---
DISCHARGE INSTRUCTIONS Condition on Discharge Condition on Discharge: Stable Activity After Discharge Activity Instructions for Disc: No restrictions Lifting Instructions after Dis: No heavy lifting Exercise Instruction after Dis: Walk 10 min, 3 x per day Driving Instructions after Dis: Do not drive today Weight Bearing Status after Di: No restrictions Diet after Discharge Diet after Discharge: Regular Checks after Discharge Checks after discharge: Check blood press - daily Contacting the [facility] after DC Call your doctor for: If your condition worsens Warfarin Follow-Up Warfarin Follow UP: NO SMOKING KENNEY OAKLEY MD Aug 30, 2019 13:26
--- NOTE | 2019-08-30 14:17 | NUR ---
Discharge Note: ASHLY MAGALLANES [facility] Discharge instructions and discharge home medications reviewed with Patient and a copy given. All questions have been answered and understanding verbalized. The following instructions and handouts were given: prescriptions for prednisone taper, zpack, inhaler, follow up instructions. Discontinued lines and drains: 20 gauge right FA, tip intact. patient tolerated well. Patient discharged to home with self care via taxi.
[2019-08-30] MEDS ORDERED: BUDESONIDE 0.5 MG/2 ML NEBU. NEB SCH (20:00)
[2019-08-30] MEDS ORDERED: NON FORMULARY ITEM (Budesonide/Formoterol Fumarate (Symbicort 80-4.5 Mcg Inhaler) 1 PUFF) IH SCH (21:00)
[2019-08-31] MEDS ORDERED: predniSONE 20 MG TABLET PO SCH (09:00)
[2019-08-31] MEDS ORDERED: AZITHROMYCIN PO SCH (09:00)
[2019-08-31] MEDS ORDERED: ENOXAPARIN 40 MG/0.4 ML SYRINGE. SQ SCH (09:00)
== END 2019-08-30 15:08 | disposition home or self-care (01) | DRG 189 ==
LOC: ER 21:05 → 6 SOUTH 23:55
PROVIDERS: ADMIT Family Medicine; ATTEND Family Medicine
DX: J96.01 Acute respiratory failure with hypoxia (principal); J44.1 Chronic obstructive pulmonary disease with (acute) exacerbation; J45.901 Unspecified asthma with (acute) exacerbation; I10 Essential (primary) hypertension; M19.90 Unspecified osteoarthritis, unspecified site; F17.210 Nicotine dependence, cigarettes, uncomplicated; Z82.5 Family history of asthma and other chronic lower respiratory diseases
CPT/HCPCS: 36415; 36600; 71045; 80053; 82805; 84484; 85025; 93005; 94618; 94640; 94760; 96365; 96375; J2930; J3490; J7620; 99285-25; G0378

== ENCOUNTER 2019-12-14 17:09 | Emergency (ER) | payer SELFPAY ==
[~2019-12-14] VITALS: Ht 180.3 cm; Wt 50.0 kg
[2019-12-14] MEDS ORDERED: ALBUTEROL SULFATE 2.5 MG/3 ML NEBU. CONT NEB STA (17:26)
[2019-12-14] MEDS ORDERED: methylPREDNISolone SOD SUCC PF 125 MG/2 ML VIAL. IM STA (17:26)
--- NOTE | 2019-12-14 17:30 | PHYS DOC ---
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 The patient has a history of COPD and Asthma. The patient states he has been coughing over the last two days. He states he is out of his inhaler. He came via EMS. He received a breathing treatment via EMS that helped some. Denies fever or any other symptoms. Complete ROS were reviewed and found to be within normal limits, except as documented in the HPI Current Medications Current Medications Current Medications Medications (Trade) Dose Ordered Sig/Faiza Start Time Stop Time Status Last Admin Dose Admin Albuterol Sulfate (Ventolin Neb Soln) 10 mg 1X STAT 12/14/19 17:26 12/14/19 17:29 DC 12/14/19 17:41 10 MG Methylprednisolone Sodium Succinate (SOLU-Medrol 125MG VIAL) 125 mg 1X STAT 12/14/19 17:26 12/14/19 17:29 DC 12/14/19 17:57 125 MG Allergies Allergies Allergies Coded Allergies Type Severity Reaction Last Updated Verified No Known Drug Allergies 05/13/16 No Physical Exam Physical Exam Constitutional: Well developed, well nourished, no acute distress, non-toxic appearance. [] HENT: Normocephalic, atraumatic, bilateral external ears normal, oropharynx moist, no oral exudates, nose normal. [] Eyes: PERRLA, EOMI, conjunctiva normal, no discharge. [] Neck: Normal range of motion, no tenderness, supple, no stridor. [] Cardiovascular:Heart rate regular rhythm, no murmur [] Lungs & Thorax: Bilateral breath sounds wheezing diffusely. Skin: Warm, dry, no erythema, no rash. [] Neurologic: Alert and oriented X 3, normal motor function, normal sensory function, no focal deficits noted. [] Psychologic: Affect normal, judgement normal, mood normal. [] Current Patient Data Vital Signs Vital Signs Date Time Temp Pulse Resp B/P (MAP) Pulse Ox O2 Delivery O2 Flow Rate FiO2 12/14/19 17:46 Room Air 12/14/19 17:20 98.0 95 18 151/82 (105) 98 98.0 EKG EKG [] Radiology/Procedures Radiology/Procedures [] Course & Med Decision Making Course & Med Decision Making Pertinent Labs and Imaging studies reviewed. (See chart for details) Will get Chest x-ray, give breathing treatment and steroids. Patient is feeling better after treatments. Will d/c home with inhaler and steroids. Dragon Disclaimer Dragon Disclaimer This electronic medical record was generated, in whole or in part, using a voice recognition dictation system. Departure Departure Impression: Primary Impression: COPD exacerbation Disposition: HOME, SELF-CARE Condition: STABLE Referrals: NO PCP (PCP) Patient Instructions: Chronic Obstructive Pulmonary Disease Exacerbation Additional Instructions: Thank you for visiting [facility]. We appreciate you trusting us with your care. If any additional problems come up don't hesitate to return to visit us. Please follow up with your primary care provider so they can plan additional care if needed and know about the problem that you had. If symptoms worsen come back to the Emergency Department. Any concerning symptoms that start such as chest pain, shortness of air, weakness or numbness on one side of the body, running high fevers or any other concerning symptoms return to the ER. Please fill your medications at any pharmacy and follow the prescription instructions. Scripts Methylprednisolone (MEDROL) 4 Mg Tab.ds.pk 1 PKG PO UD, #1 PKG Prov: AALIYAH DASH APRN 12/14/19 Albuterol Sulfate (PROAIR HFA INHALER) 8.5 Gm Hfa.aer.ad 2 PUFF IH PRN Q4-6HRS PRN for wheezing for 21 Days, #1 INHALER 0 Refills Prov: AALIYAH DASH APRN 12/14/19 AALIYAH DASH APRN Dec 14, 2019 17:30
[2019-12-14 19:00] VITALS: BP 117/60
--- NOTE | 2019-12-14 19:09 | RAD ---
EXAM: PA and Lateral Views of the Chest DATE: 12/14/2019 5:26 PM INDICATION: Cough, shortness of breath COMPARISON: 08/29/2019, 06/19/2019 FINDINGS: The heart is not enlarged. Atherosclerotic calcifications of the tortuous aorta are seen. No lobar consolidation. Emphysematous changes are seen. 1 cm nodular opacity projecting of the left lung base may represent summation artifact or underlying lung nodule. No pleural effusion or pneumothorax. IMPRESSION: 1. Emphysematous changes are seen. No lobar consolidation. 2. 1 cm nodular opacity projecting of the left lung base may represent summation artifact or underlying lung nodule. CT is recommended for further evaluation. Electronically signed by: Mello Genao MD (12/14/2019 7:06 PM) [facility] [place]
[2019-12-14] MEDS ORDERED: METH4TAB2 PO (19:28)
[2019-12-14] MEDS ORDERED: ALBU2.5V8 IH (19:28)
== END 2019-12-14 19:45 | disposition home or self-care (01) ==
LOC: ER 17:09
DX: J44.1 Chronic obstructive pulmonary disease with (acute) exacerbation (principal); J45.901 Unspecified asthma with (acute) exacerbation; F10.10 Alcohol abuse, uncomplicated; Z98.890 Other specified postprocedural states
CPT/HCPCS: 71046; 94640; 96372; 99284; J2930; J7613; 94644

== ENCOUNTER 2020-01-26 18:38 | Emergency (ER) | payer SELFPAY ==
[~2020-01-26] VITALS: Ht 180.3 cm; Wt 60.1 kg
[~2020-01-26 18:38] MED LIST changes: +METH4TAB2 PO
[2020-01-26] MEDS ORDERED: methylPREDNISolone SOD SUCC PF 125 MG/2 ML VIAL. IV ONE (20:00)
[2020-01-26] MEDS ORDERED: IPRATRPIUM/ALBUTEROL 0.5/2.5MG 3 ML NEBU. NEB ONE (20:00)
--- NOTE | 2020-01-26 20:07 | PHYS DOC ---
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 (SOCORRO RICHARDS MD) Adult General Chief Complaint Chief Complaint: SHORTNESS OF BREATH HPI HPI Patient is a 59 year old male who is here with shortness of breath and wheezing. He reports a history of asthma and is a daily cigarette smoker. He also tells me that he has been diagnosed in the past with lung cancer and declined treatment. Pt is currently homeless and does not have medications. (REJI ARNOLD) Review of Systems Review of Systems Constitutional: Denies fever or chills HENT: Denies nasal congestion or sore throat Respiratory: Reports cough and wheezing. Reports SOB. Cardiovascular: Denies chest pain. GI: Denies abdominal pain, nausea, vomiting, bloody stools or diarrhea Musculoskeletal: Denies back pain or joint pain Integument: Denies rash or skin lesions Neurologic: Denies headache, focal weakness or sensory changes All other systems were reviewed and found to be within normal limits, except as documented in this note. (REJI ARNOLD) Current Medications Current Medications Current Medications Medications (Trade) Dose Ordered Sig/Faiza Start Time Stop Time Status Last Admin Dose Admin Albuterol Sulfate (Ventolin Neb Soln) 2.5 mg 1X ONCE 01/26/20 21:30 01/26/20 21:31 DC 01/26/20 21:42 2.5 MG Albuterol/ Ipratropium (Duoneb) 3 ml 1X ONCE 01/26/20 20:00 01/26/20 20:01 DC 01/26/20 20:12 3 ML Methylprednisolone Sodium Succinate (SOLU-Medrol 125MG VIAL) 125 mg 1X ONCE 01/26/20 20:00 01/26/20 20:01 DC 01/26/20 20:12 125 MG (SOCORRO RICHARDS MD) Allergies Allergies Allergies Coded Allergies Type Severity Reaction Last Updated Verified No Known Drug Allergies 05/13/16 No (SOCORRO RICHARDS MD) Physical Exam Physical Exam Constitutional: Well developed, well nourished, no acute distress, non-toxic appearance. Unkempt, disheveled. HENT: Normocephalic, atraumatic, bilateral external ears normal, oropharynx moist, no oral exudates, nose normal. Neck: Normal range of motion, no tenderness, supple, no stridor. Cardiovascular:Heart rate regular rhythm, no murmur Lungs & Thorax: Bilateral diffuse wheezing and decreased breath sounds B. Hard cough noted. Abdomen: Bowel sounds normal, soft, no tenderness, no masses, no pulsatile masses. Skin: Warm, dry, no erythema, no rash. Back: No tenderness, no CVA tenderness. Extremities: No tenderness, no cyanosis, no clubbing, ROM intact, no edema. Neurologic: Alert and oriented X 3, normal motor function, normal sensory function, no focal deficits noted. Psychologic: Affect normal, judgement normal, mood normal. (REJI ARNOLD) Current Patient Data Vital Signs Vital Signs Date Time Temp Pulse Resp B/P (MAP) Pulse Ox O2 Delivery O2 Flow Rate FiO2 01/26/20 21:43 92 Room Air 01/26/20 19:20 97.4 94 20 98/59 (72) 97.4 (SOCORRO RICHARDS MD) Lab Values Laboratory Tests Test 01/26/20 20:10 White Blood Count 8.0 x10^3/uL (4.0-11.0) Red Blood Count 3.94 x10^6/uL (4.30-5.70) L Hemoglobin 13.0 g/dL (13.0-17.5) Hematocrit 38.2 % (39.0-53.0) L Mean Corpuscular Volume 97 fL (79-100) Mean Corpuscular Hemoglobin 33 pg (25-35) Mean Corpuscular Hemoglobin Concent 34 g/dL (31-37) Red Cell Distribution Width 12.7 % (11.5-14.5) Platelet Count 258 x10^3/uL (140-400) Neutrophils (%) (Auto) 50 % (31-73) Lymphocytes (%) (Auto) 32 % (24-48) Monocytes (%) (Auto) 12 % (0-9) H Eosinophils (%) (Auto) 5 % (0-3) H Basophils (%) (Auto) 1 % (0-3) Neutrophils # (Auto) 4.0 x10^3/uL (1.8-7.7) Lymphocytes # (Auto) 2.6 x10^3/uL (1.0-4.8) Monocytes # (Auto) 0.9 x10^3/uL (0.0-1.1) Eosinophils # (Auto) 0.4 x10^3/uL (0.0-0.7) Basophils # (Auto) 0.1 x10^3/uL (0.0-0.2) D-Dimer (Shameka) < 0.27 ug/mlFEU Sodium Level 139 mmol/L (136-145) Potassium Level 3.8 mmol/L (3.5-5.1) Chloride Level 101 mmol/L (98-107) Carbon Dioxide Level 30 mmol/L (21-32) Anion Gap 8 (6-14) Blood Urea Nitrogen 16 mg/dL (8-26) Creatinine 1.0 mg/dL (0.7-1.3) Estimated GFR (Cockcroft-Gault) 77.0 BUN/Creatinine Ratio 16 (6-20) Glucose Level 136 mg/dL (70-99) H Calcium Level 9.7 mg/dL (8.5-10.1) Total Bilirubin 0.2 mg/dL (0.2-1.0) Aspartate Amino Transferase (AST) 21 U/L (15-37) Alanine Aminotransferase (ALT) 25 U/L (16-63) Alkaline Phosphatase 44 U/L (46-116) L Creatine Kinase 131 U/L (39-308) Creatine Kinase MB (Mass) 3.1 ng/mL (0.0-3.6) Creatine Kinase MB Relative Index 2.4 % (0-4) Troponin I Quantitative < 0.017 ng/mL (0.000-0.055) HG-Arf-D-Type Natriuretic Peptide 227 pg/mL (0-124) H Total Protein 6.8 g/dL (6.4-8.2) Albumin 3.7 g/dL (3.4-5.0) Albumin/Globulin Ratio 1.2 (1.0-1.7) Laboratory Tests 01/26/20 20:10 Laboratory Tests 01/26/20 20:10 (SOCORRO RICHARDS MD) Lab Values Laboratory Tests Test 01/26/20 20:10 White Blood Count 8.0 x10^3/uL (4.0-11.0) Red Blood Count 3.94 x10^6/uL (4.30-5.70) L Hemoglobin 13.0 g/dL (13.0-17.5) Hematocrit 38.2 % (39.0-53.0) L Mean Corpuscular Volume 97 fL (79-100) Mean Corpuscular Hemoglobin 33 pg (25-35) Mean Corpuscular Hemoglobin Concent 34 g/dL (31-37) Red Cell Distribution Width 12.7 % (11.5-14.5) Platelet Count 258 x10^3/uL (140-400) Neutrophils (%) (Auto) 50 % (31-73) Lymphocytes (%) (Auto) 32 % (24-48) Monocytes (%) (Auto) 12 % (0-9) H Eosinophils (%) (Auto) 5 % (0-3) H Basophils (%) (Auto) 1 % (0-3) Neutrophils # (Auto) 4.0 x10^3/uL (1.8-7.7) Lymphocytes # (Auto) 2.6 x10^3/uL (1.0-4.8) Monocytes # (Auto) 0.9 x10^3/uL (0.0-1.1) Eosinophils # (Auto) 0.4 x10^3/uL (0.0-0.7) Basophils # (Auto) 0.1 x10^3/uL (0.0-0.2) D-Dimer (Shameka) < 0.27 ug/mlFEU Sodium Level 139 mmol/L (136-145) Potassium Level 3.8 mmol/L (3.5-5.1) Chloride Level 101 mmol/L (98-107) Carbon Dioxide Level 30 mmol/L (21-32) Anion Gap 8 (6-14) Blood Urea Nitrogen 16 mg/dL (8-26) Creatinine 1.0 mg/dL (0.7-1.3) Estimated GFR (Cockcroft-Gault) 77.0 BUN/Creatinine Ratio 16 (6-20) Glucose Level 136 mg/dL (70-99) H Calcium Level 9.7 mg/dL (8.5-10.1) Total Bilirubin 0.2 mg/dL (0.2-1.0) Aspartate Amino Transferase (AST) 21 U/L (15-37) Alanine Aminotransferase (ALT) 25 U/L (16-63) Alkaline Phosphatase 44 U/L (46-116) L Creatine Kinase 131 U/L (39-308) Creatine Kinase MB (Mass) 3.1 ng/mL (0.0-3.6) Creatine Kinase MB Relative Index 2.4 % (0-4) Troponin I Quantitative < 0.017 ng/mL (0.000-0.055) AP-Lmg-X-Type Natriuretic Peptide 227 pg/mL (0-124) H Total Protein 6.8 g/dL (6.4-8.2) Albumin 3.7 g/dL (3.4-5.0) Albumin/Globulin Ratio 1.2 (1.0-1.7) Laboratory Tests 01/26/20 20:10 Laboratory Tests 01/26/20 20:10 (REJI ARNOLD) EKG EKG [] (REJI ARNOLD) Radiology/Procedures Radiology/Procedures CXR: neg for acute findings. (REJI ARNOLD) Course & Med Decision Making Course & Med Decision Making PT's labs, CXR reassuring. He is breathing much better after IV steroids and neb treatment x2. Pt's room air oxygen sat is 92-94% and suspect this is where he is normally. Discussed importance of smoking cessation and to f/u with PCP or Health Dept. Pt will be discharged with Rx for Proair and Prednisone. Pt to return with any worsening symptoms. (REJI ARNOLD) Dragon Disclaimer Dragon Disclaimer This electronic medical record was generated, in whole or in part, using a voice recognition dictation system. (REJI ARNOLD) Departure Departure Impression: Primary Impression: Asthma exacerbation Disposition: HOME, SELF-CARE Condition: IMPROVED Referrals: NO PCP (PCP) Patient Instructions: Asthma, Adult, [id number], Smoking Cessation, Tips For Success Additional Instructions: Stop smoking. Follow up with your doctor or the community health department. Return with any worsening of symptoms. Scripts Albuterol Sulfate (PROAIR HFA INHALER) 8.5 Gm Hfa.aer.ad 2 PUFF IH PRN Q4-6HRS PRN for wheezing for 21 Days, #1 INHALER 0 Refills Prov: REJI ARNOLD 01/26/20 Prednisone (PREDNISONE) 20 Mg Tablet 1 TAB PO BID, #10 TAB Prov: REJI ARNOLD 01/26/20 REJI ARNOLD Jan 26, 2020 20:07 SOCORRO RICHARDS MD Jan 26, 2020 22:07
[2020-01-26 20:20] LABS: BASO # 0.1 x10^3/uL (0.0-0.2); BASO % 1 % (0-3); EOS # 0.4 x10^3/uL (0.0-0.7); EOS % 5 % (0-3); HEMATOCRIT 38.2 % (39.0-53.0); LYMPH # 2.6 x10^3/uL (1.0-4.8); LYMPH % 32 % (24-48); MEAN CORPUSCULAR HEMOGLOBIN 33 pg (25-35); MEAN CORPUSCULAR HGB CONC 34 g/dL (31-37); MEAN CORPUSCULAR VOLUME 97 fL (79-100); MONO # 0.9 x10^3/uL (0.0-1.1); MONO % 12 % (0-9); NEUT % 50 % (31-73); PLATELET COUNT 258 x10^3/uL (140-400); RED BLOOD COUNT 3.94 x10^6/uL (4.30-5.70); RED CELL DISTRIBUTION WIDTH 12.7 % (11.5-14.5)
[2020-01-26 20:35] LABS: CALCIUM 9.7 mg/dL (8.5-10.1); POTASSIUM 3.8 mmol/L (3.5-5.1)
[2020-01-26 20:41] LABS: ALBUMIN 3.7 g/dL (3.4-5.0); ALBUMIN/GLOBULIN RATIO 1.2 (1.0-1.7); TOTAL BILIRUBIN 0.2 mg/dL (0.2-1.0); TOTAL PROTEIN 6.8 g/dL (6.4-8.2)
--- NOTE | 2020-01-26 20:49 | RAD ---
Exam: Chest 2 views INDICATION: Short of breath TECHNIQUE: Frontal and lateral views the chest Comparisons: 12/14/2019 FINDINGS: The cardiomediastinal silhouette and pulmonary vessels are within normal limits. The lung and pleural spaces are clear. IMPRESSION: No acute cardiopulmonary process. Electronically signed by: Jordy Bowers MD (01/26/2020 8:46 PM) [id number]
[2020-01-26] MEDS ORDERED: PRED20TA PO (21:26)
[2020-01-26] MEDS ORDERED: ALBU2.5V8 IH (21:26)
[2020-01-26] MEDS ORDERED: ALBUTEROL SULFATE 2.5 MG/3 ML NEBU. NEB ONE (21:30)
[2020-01-26 21:54] VITALS: BP 118/72
--- NOTE | 2020-01-27 06:10 | EKG ---
[address] [place] [address] Test Date: 2020-01-26 Test Time: 19:57:46 Pat Name: CHALINO MAGALLANES Department: Room: Gender: M [employer]: : 1960 Requested By: REJI ARNOLD Order Number: [id number] Reading MD: Measurements Intervals [place] Rate: 83 P: 42 [place]: 158 QRS: 83 QRSD: 86 T: 77 QT: 358 QTc: 421 Interpretive Statements SINUS RHYTHM QRS(T) CONTOUR ABNORMALITY CONSIDER ANTEROLATERAL MYOCARDIAL DAMAGE POSSIBLY ABNORMAL ECG RI6.01 No previous ECG available for comparison
== END 2020-01-26 22:05 | disposition home or self-care (01) ==
LOC: ER 18:38
DX: J45.901 Unspecified asthma with (acute) exacerbation (principal); R05 Cough; R06.02 Shortness of breath; J44.9 Chronic obstructive pulmonary disease, unspecified; F17.210 Nicotine dependence, cigarettes, uncomplicated; F10.10 Alcohol abuse, uncomplicated; Z98.890 Other specified postprocedural states; Z85.118 Personal history of other malignant neoplasm of bronchus and lung
CPT/HCPCS: 36415; 71046; 80053; 82553; 83880; 84484; 85025; 85379; 93005; 94640; 96374; 99285; J2930; J7613